=== PATIENT | female | born 2000 | race Caucasian/White ===

== ENCOUNTER 2022-11-17 22:44 | Emergency (ER) | payer MEDICAID, SELFPAY ==
[2022-11-17 22:48] VITALS: BP 150/94; PULSE 86; RESP 16; TEMP 36.4; O2SAT 97; BMI 20.8
--- NOTE | 2022-11-17 23:12 | ED.ABDPAIN1 ---
HPI - Abdominal Pain General Chief Complaint: Abdominal Pain Stated Complaint: PAIN IN SIDE FROM FRONT TO BACK LEFT Time Seen by Provider: 11/17/22 22:50 Source: patient Mode of arrival: walk-in Limitations: no limitations History of Present Illness HPI narrative: This 22-year-old female who is status post appendectomy presents for evaluation of left lower quadrant abdominal pain that is not radiating into her back. She states the pain started last night and was a 3 or 4. She took some laxatives and had a bowel movement which was normal. Her normal bowel movement prior to that was the day before. She states she has since had increasing abdominal pain with radiation into her back on the left side with nausea and 2 episodes of vomiting. She states her urine is always kind of dark. She doesn't have a history of kidney stones. She has not had a fever. She denies any chest pain or shortness of breath. She has no lower extremity pain or swelling. MD elicited complaint: Reports abdominal pain and flank pain Related Data Home Medications Medication Instructions Recorded Confirmed No Known Home Medications 11/17/22 11/17/22 Allergies Allergy/AdvReac Type Severity Reaction Status Date / Time No Known Drug Allergies Allergy Verified 11/17/22 22:52 Review of Systems ROS Status of ROS 10 or more systems reviewed and unremarkable except as noted in history and below Exam Narrative Exam Narrative: Nurses note and vital signs reviewed and patient is not hypoxic. Blood pressure is mildly elevated at 150/94 General: The patient appears well and in no apparent distress. Patient is resting comfortably on cart. no active vomiting Skin: Warm, dry, no pallor noted. There is no rash noted. Head: Normocephalic, atraumatic Eye: Normal conjunctiva, no drainage, EOMI. PERRL Ears, Nose, Mouth, and Throat: oral mucosa is moist. Nares patent. Mouth without vesicles. Cardiovascular: Regular Rate and Rhythm Respiratory: Patient is in no distress, no accessory muscle use, lungs are clear to auscultation, no wheezing, rales or rhonchi Back: mild left lower lumbar tenderness and tenderness in left mid flank and minimal tenderness in LLQ GI: Normal bowel sounds,mild tenderness along the distribution of the left ureter, minimal LLQ tenderness without rebound, guarding or rigidity Musculoskeletal: The patient has no evidence of calf tenderness, no pitting edema, symmetrical pulses noted bilaterally Neurological: A&O x4, normal speech Psychiatric: Cooperative Constitutional Vital Signs, click to edit/add: Last Vital Signs Temp 97.6 F 11/17/22 22:48 Pulse 86 11/17/22 22:48 Resp 16 11/17/22 22:48 BP 150/94 H 11/17/22 22:48 Pulse Ox 97 11/17/22 22:48 O2 Del Method Room Air 11/17/22 22:48 Course Vital Signs Vital signs: Vital Signs Temperature 97.6 F 11/17/22 22:48 Pulse Rate 86 11/17/22 22:48 Respiratory Rate 16 11/17/22 22:48 Blood Pressure 150/94 H 11/17/22 22:48 Pulse Oximetry 97 11/17/22 22:48 Oxygen Delivery Method Room Air 11/17/22 22:48 Temperature 97.6 F 11/17/22 22:48 Pulse Rate 86 11/17/22 22:48 Respiratory Rate 16 11/17/22 22:48 Blood Pressure 150/94 H 11/17/22 22:48 Pulse Oximetry 97 11/17/22 22:48 Oxygen Delivery Method Room Air 11/17/22 22:48 MDM - Abdominal Pain MDM Narrative Medical decision making narrative: This otherwise healthy 22-year-old female who is status post appendectomy in the past presents for evaluation of left lower quadrant abdominal pain that started Last night and in the past 24 hours has radiated into her right flank associated with nausea and 2 episodes of vomiting. She denies any urinary symptoms. She denied the possibility of . She has not had a fever. She has never had any kidney stones. She was mildly tender in her left lower quadrant and left flank. An IV was placed and she was medicated with a liter of normal saline, 30 mg of Toradol and 4 mg of Zofran. I reevaluation she was feeling better. Her pain was resolved and her nausea had also resolved. Routine labs are ordered and are reviewed. Her urine is negative for infection or large blood. Urine test was negative. She has a normal white count and hemoglobin. Electrolytes and liver function tests are normal. CT scan of the abdomen and pelvis shows gallstones and is otherwise normal. The results of the CT scan were discussed with her. She is not having any right upper quadrant abdominal pain or tenderness. She will follow-up with her family physician regarding the gallstones. I gave her a prescription for Colace to use as needed for constipation as this may be causing her discomfort. She is otherwise agreeable to discharge at this time and will follow-up with her PCP. Lab Data Labs: Lab Results 11/17/22 Range/Units 23:00 WBC 9.1 (4.0-11.0) 10^3/uL RBC 4.82 (4.20-5.40) 10^6/uL Hgb 14.1 (12.0-16.0) g/dL Hct 43.0 (36.0-48.0) % MCV 89.2 (81.0-99.0) fL MCH 29.3 (26.7-34.0) pg MCHC 32.8 (29.9-35.2) g/dL RDW 12.6 (11.0-15.0) % Plt Count 277 (150-450) 10^3/uL MPV 9.5 (9.5-13.5) fL Neut % (Auto) 71.3 (43.0-75.0) % Lymph % (Auto) 21.9 (20.5-60.0) % [place] % (Auto) 5.2 (1.7-12.0) % Eos % (Auto) 0.8 L (0.9-7.0) % Baso % (Auto) 0.4 (0.2-2.0) % Neut # (Auto) 6.5 (1.4-6.5) 10^3/uL Lymph # (Auto) 2.0 (1.2-3.8) 10^3/uL [place] # (Auto) 0.5 (0.3-0.8) 10^3/uL Eos # (Auto) 0.1 (0.0-0.7) 10^3/uL Baso # (Auto) 0.0 (0.0-0.1) 10^3/uL Abs Immat Gran (auto) 0.04 H (0.00-0.03) 10^3/uL Imm/Tot Granulo (auto) 0.4 (0.0-0.5) % Sodium 139 (136-145) mmol/L Potassium 3.9 (3.5-5.1) mmol/L Chloride 103 (98-107) mmol/L Carbon Dioxide 27.4 (21.0-32.0) mmol/L Anion Gap 12.5 BUN 14.0 (7.0-18.0) mg/dL Creatinine 0.74 (0.55-1.02) mg/dL Est GFR ( Amer) >60 (>=60) Est GFR (Non-Af Amer) >60 (>=60) BUN/Creatinine Ratio 18.9 Glucose 121 H (74-106) mg/dL Lactate 0.7 (0.4-2.0) mmol/L Calcium 9.1 (8.5-10.1) mg/dL Total Bilirubin 0.2 (0.2-1.0) mg/dL AST 10 L (15-37) U/L ALT <6 L (14-59) U/L Alkaline Phosphatase 55 (46-116) U/L Total Protein 7.7 (6.4-8.2) g/dL Albumin 4.4 (3.4-5.0) g/dL Globulin 3.3 g/dL Albumin/Globulin Ratio 1.3 Lipase 94.0 (73.0-393.0) U/L Urine Color Lt. yellow (YELLOW) Urine Clarity Clear (CLEAR) Urine pH 6.5 (5.0-9.0) Ur Specific [place] 1.025 (1.005-1.025) Urine Protein Negative (NEG/TRACE) mg/dL Urine Glucose (UA) Negative (NEGATIVE) mg/dL Urine Ketones Negative (NEGATIVE) mg/dL Urine Occult Blood Negative (NEGATIVE) Urine Nitrite Negative (NEGATIVE) Urine Bilirubin Negative (NEGATIVE) Urine Urobilinogen 0.2 (0.2-1.0) EU/dL Ur Leukocyte Esterase Trace A (NEGATIVE) Urine RBC 0-2 (0-2) #/HPF Urine WBC 0-2 A (NONE SEEN) #/HPF Ur Squamous Epith Cells Few A (NONE/RARE) #/LPF Urine Crystals Seen A (None Seen) #/HPF Amorphous Sediment Moderate Urine Bacteria Trace A (NONE SEEN) #/HPF Urine Casts None seen (NONE SEEN) #/LPF Urine Mucus Trace A (NONE SEEN) Ur Culture Indicated? No Urine HCG, Qual Negative (NEGATIVE) Discharge Plan Discharge Chief Complaint: Abdominal Pain Clinical Impression: Abdominal pain, LLQ, Constipation, Gallstone Patient Disposition: Home, Self-Care Time of Disposition Decision: 01:12 Condition: Good Prescriptions / Home Meds: No Action No Known Home Medications Instructions: Constipation (ED), Gallstones (ED), High Fiber Diet (ED), Acute Abdominal Pain (ED) Stand Alone Forms: Portal Instructions Referrals: JOSÉ MANUEL CHEUNG [Primary Care Provider] - 1 week
[2022-11-17 23:20] LABS: Bilirubin Urine NEGATIVE (NEGATIVE); Blood Urine NEGATIVE (NEGATIVE); Clarity Urine CLEAR (CLEAR); Color Urine LT. YELLOW (YELLOW); Glucose Urine UA NEGATIVE (NEGATIVE); Ketones Urine NEGATIVE (NEGATIVE); Leukocyte Esterase Urine TRACE (NEGATIVE); Nitrite Urine NEGATIVE (NEGATIVE); Protein Urine NEGATIVE (NEG/TRACE); Specific Gravity Urine 1.025 (1.005-1.025); Urobilinogen Urine 0.2 EU/dL (0.2-1.0); pH Urine 6.5 (5.0-9.0)
[2022-11-17 23:21] LABS: HCG Qualitative Urine* NEGATIVE (NEGATIVE)
[2022-11-17 23:22] LABS: Basophils Percent Auto 0.4 % (0.2-2.0); Eosinophils Absolute Auto 0.1 10^3/uL (0.0-0.7); Eosinophils Percent Auto 0.8 % (0.9-7.0); Hemoglobin 14.1 g/dL (12.0-16.0); Immature Granulocytes Abs Auto 0.04 10^3/uL (0.00-0.03); Immature Granulocytes Pct Auto 0.4 % (0.0-0.5); Lymphocytes Percent Auto 21.9 % (20.5-60.0); Mean Corpuscular HGB Conc 32.8 g/dL (29.9-35.2); Mean Corpuscular Hemoglobin 29.3 pg (26.7-34.0); Mean Corpuscular Volume 89.2 fL (81.0-99.0); Mean Platelet Volume 9.5 fL (9.5-13.5); Monocytes Absolute Auto 0.5 10^3/uL (0.3-0.8); Monocytes Percent Auto 5.2 % (1.7-12.0); Neutrophils Absolute Auto 6.5 10^3/uL (1.4-6.5); Neutrophils Percent Auto 71.3 % (43.0-75.0); Platelet Count 277 10^3/uL (150-450); Red Blood Count 4.82 10^6/uL (4.20-5.40); Red Cell Distribution Width 12.6 % (11.0-15.0); White Blood Count 9.1 10^3/uL (4.0-11.0)
[2022-11-17 23:29] LABS: Bacteria Urine TRACE #/HPF (NONE SEEN); Cast Seen? NONE SEEN #/LPF (NONE SEEN); Mucus Urine TRACE (NONE SEEN); RBC Urine 0-2 #/HPF (0-2); Squamous Epithelial Cell Urine FEW #/LPF (NONE/RARE); Urine Culture Indicated NO; WBC Urine 0-2 #/HPF (NONE SEEN)
[2022-11-17 23:30] LABS: Amorphous Sediment Urine MODERATE; Crystals Seen? Seen #/HPF (None Seen)
[2022-11-17 23:37] LABS: Alanine Aminotransferase <6 U/L (14-59); Albumin Globulin Ratio 1.3; Albumin Level 4.4 g/dL (3.4-5.0); Alkaline Phosphatase 55 U/L (46-116); Anion Gap 12.5; Aspartate Amino Transferase 10 U/L (15-37); BUN Creatinine Ratio 18.9; Bilirubin Total 0.2 mg/dL (0.2-1.0); Calcium 9.1 mg/dL (8.5-10.1); Carbon Dioxide 27.4 mmol/L (21.0-32.0); Chloride 103 mmol/L (98-107); Estimated GFR (African America >60 (>=60); Estimated GFR (Non-African Ame >60 (>=60); Globulin 3.3 g/dL; Glucose 121 mg/dL (74-106); Potassium 3.9 mmol/L (3.5-5.1); Sodium 139 mmol/L (136-145); Total Protein 7.7 g/dL (6.4-8.2)
[2022-11-17] MEDS: KETOROLAC TROMETHAMINE 30 MG/ML VIAL IVP (23:37)
[2022-11-17] MEDS: ONDANSETRON PF 4 MG/2 ML VIAL IV (23:37)
[2022-11-17 23:39] LABS: Lactate/Lactic Acid 0.7 mmol/L (0.4-2.0)
--- NOTE | 2022-11-17 23:57 | CT_ITS ---
The [address] [address] Patient Name: BASILIO GAYLE MRN: [id number] date: 2000 Sex: F Assigned Patient Location: ER Current Patient Location: ER Accession/Order Number: [id number] Exam Date: 11/17/2022 23:50 Report Date: 11/18/2022 00:55 At the request of: TRINIDAD MARKER Procedure: CT abdomen pelvis wo con EXAM: CT abdomen pelvis wo con HISTORY: left flank pain . Pain radiating into back with nausea and vomiting. No history of kidney stones. COMPARISON: None. TECHNIQUE: Nonenhanced CT imaging the abdomen and pelvis was performed with sagittal and coronal reconstructions. FINDINGS: CT ABDOMEN: The lung bases are clear. Cardiac size is normal. There is no pericardial effusion. Cholelithiasis is noted without cholecystitis or biliary ductal dilatation. The exam is limited by the lack of IV contrast. Solid organ lesions or acute abnormalities could be missed. With this consideration, the liver, pancreas, spleen, adrenal glands, aorta, IVC, stomach and small bowel are grossly unremarkable. Slightly hyperdense bilateral renal pyramids could reflect dehydration or underlying very mild nephrocalcinosis. No discrete formed stones are identified. The nonenhanced kidneys are otherwise unremarkable. CT PELVIS: Surgical change at the base of the cecum suggests prior appendectomy. The pelvic small bowel loops, colon, urinary bladder and uterus are unremarkable. Normal sized right ovarian follicles are present. The left ovary is unremarkable. No inflammatory fat stranding, free fluid, loculated fluid or free air is seen in the abdomen or pelvis. No acute osseous abnormality or suspicious bony lesion is seen. CT/CT abdomen pelvis wo con IMPRESSION: 1. No acute findings in the abdomen or pelvis. No hydronephrosis or ureterolithiasis or other specific cause of left flank pain is identified. 2. Cholelithiasis. 3. Appendectomy. Electronically authenticated by: ANDRÉS GUTHRIE Date: 11/18/2022 00:55
[2022-11-18] MEDS: 0.9 % SODIUM CHLORIDE 1,000 ML 1000 ML IV (00:13)
== END 2022-11-18 01:29 | disposition home or self-care (01) ==
PROVIDERS: Emergency Provider Emergency Medicine; PCP Family Medicine
DX: R10.32 Left lower quadrant pain (principal); K59.00 Constipation, unspecified; K80.20 Calculus of gallbladder without cholecystitis without obstruction; Z90.49 Acquired absence of other specified parts of digestive tract
CPT/HCPCS: 36415; 74176; 80053; 81001; 83605; 83690; 84703; 85025; 96374; 96375; 99284

== ENCOUNTER 2022-12-24 01:17 | Emergency (ER) | payer MEDICAID, SELFPAY ==
[2022-12-24 01:20] VITALS: BP 150/94; PULSE 78; RESP 16; TEMP 36.9; O2SAT 99; BMI 20.8
--- NOTE | 2022-12-24 01:37 | ED.ABDPAIN1 ---
HPI - Abdominal Pain General Chief Complaint: Abdominal Pain Stated Complaint: LT FLANK PAIN Time Seen by Provider: 12/24/22 01:30 History of Present Illness HPI narrative: 2 days ago the patient developed nausea and then tonight she developed left sided abdominal pain. No relief with naproxen taken about 2 hours ago. She had the same symptoms about a month ago and saw Dr Alberts, who ordered a CT and blood plus urine testing - revealed gallstones and no other acute pathology to account for the patient's left sided abdominal pain. Patient was better after Toradol at that ED visit and within 5 hours of going home, the pain was resolved. No urinary symptoms. She doubted that she was . No fever or chills. No urinary symptoms and no difficulty with BMs. Related Data Home Medications Medication Instructions Recorded Confirmed No Known Home Medications 11/17/22 11/17/22 Previous Rx's Medication Instructions Recorded ciprofloxacin HCl 500 mg tablet 500 mg PO BID #10 tabs 12/24/22 (Cipro) hyoscyamine sulfate 0.125 mg 0.125 mg PO Q6H PRN abdominal pain 12/24/22 sublingual tablet (Levsin/SL) #20 tabs Allergies Allergy/AdvReac Type Severity Reaction Status Date / Time No Known Drug Allergies Allergy Verified 12/24/22 01:23 [facility] Social History Smoking status: Never smoker Exam Narrative Exam Narrative: Nurses notes and vital signs reviewed and patient is not hypoxic. afebrile General: Well-appearing and in no apparent distress. Skin: Warm, dry, no pallor noted. No rash to abdomen or flank. Eye: Pupils are equal, round and EOMI. No scleral icterus. Cardiovascular: Regular Rate and Rhythm without murmur, gallop or rub. Respiratory: No accessory muscle use or respiratory distress. Lungs are clear to auscultation, no wheezing, rales or rhonchi Back: No CVA tenderness Musculoskeletal: normal ROM, no calf or popliteal tenderness, no lower extremity edema/swelling GI: Abdomen is soft, non-distended. Normal bowel sounds. No masses appreciated. LUQ tenderness to palpation. No rebound, guarding, or rigidity noted. Neurological: A&O x4. No cranial nerve dysfunction observed. No truncal ataxia. Moves all extremities. Sensation intact. Psychiatric: Cooperative and interactive. Normal mood and affect. Constitutional Vital Signs, click to edit/add: Last Vital Signs Temp 98.5 F 12/24/22 01:20 Pulse 78 12/24/22 01:20 Resp 16 12/24/22 01:20 BP 150/94 H 12/24/22 01:20 Pulse Ox 99 12/24/22 01:20 Course Vital Signs Vital signs: Vital Signs Temperature 98.5 F 12/24/22 01:20 Pulse Rate 78 12/24/22 01:20 Respiratory Rate 16 12/24/22 01:20 Blood Pressure 150/94 H 12/24/22 01:20 Pulse Oximetry 99 12/24/22 01:20 Temperature 98.5 F 12/24/22 01:20 Pulse Rate 78 12/24/22 01:20 Respiratory Rate 16 12/24/22 01:20 Blood Pressure 150/94 H 12/24/22 01:20 Pulse Oximetry 99 12/24/22 01:20 MDM - Abdominal Pain MDM Narrative Medical decision making narrative: blood and urine obtained and sent for testing. The patient was ordered to receive oral dissolvable Zofran and oral dissolvable Levsin. Once test was negative, she was ordered to be sent for x-rays of the abdomen. Preg negative. UA revealed acuter UTI and the patient was given Cipro in the ED and prescribed Cipro to take at home. XRays of the abdomen showed right sided stool and left sided gas without obstruction. Lab Data Labs: Lab Results 12/24/22 12/24/22 Range/Units 01:30 01:55 WBC 7.4 (4.0-11.0) 10^3/uL RBC 4.43 (4.20-5.40) 10^6/uL Hgb 13.1 (12.0-16.0) g/dL Hct 40.2 (36.0-48.0) % MCV 90.7 (81.0-99.0) fL MCH 29.6 (26.7-34.0) pg MCHC 32.6 (29.9-35.2) g/dL RDW 13.2 (11.0-15.0) % Plt Count 221 (150-450) 10^3/uL MPV 9.7 (9.5-13.5) fL Neut % (Auto) 54.0 (43.0-75.0) % Lymph % (Auto) 37.8 (20.5-60.0) % [place] % (Auto) 6.6 (1.7-12.0) % Eos % (Auto) 0.8 L (0.9-7.0) % Baso % (Auto) 0.5 (0.2-2.0) % Neut # (Auto) 4.0 (1.4-6.5) 10^3/uL Lymph # (Auto) 2.8 (1.2-3.8) 10^3/uL [place] # (Auto) 0.5 (0.3-0.8) 10^3/uL Eos # (Auto) 0.1 (0.0-0.7) 10^3/uL Baso # (Auto) 0.0 (0.0-0.1) 10^3/uL Abs Immat Gran (auto) 0.02 (0.00-0.03) 10^3/uL Imm/Tot Granulo (auto) 0.3 (0.0-0.5) % Sodium 141 (136-145) mmol/L Potassium 3.8 (3.5-5.1) mmol/L Chloride 106 (98-107) mmol/L Carbon Dioxide 29.4 (21.0-32.0) mmol/L Anion Gap 9.4 BUN 19.0 H (7.0-18.0) mg/dL Creatinine 0.82 (0.55-1.02) mg/dL Est GFR ( Amer) >60 (>=60) Est GFR (Non-Af Amer) >60 (>=60) BUN/Creatinine Ratio 23.2 Glucose 92 (74-106) mg/dL Calcium 8.9 (8.5-10.1) mg/dL Total Bilirubin 0.2 (0.2-1.0) mg/dL AST 8 L (15-37) U/L ALT 17 (14-59) U/L Alkaline Phosphatase 52 (46-116) U/L Total Protein 6.8 (6.4-8.2) g/dL Albumin 4.2 (3.4-5.0) g/dL Globulin 2.6 g/dL Albumin/Globulin Ratio 1.6 Urine Color Lt. yellow (YELLOW) Urine Clarity Sl cloudy (CLEAR) Urine pH 7.0 (5.0-9.0) Ur Specific [place] 1.020 (1.005-1.025) Urine Protein Negative (NEG/TRACE) mg/dL Urine Glucose (UA) Negative (NEGATIVE) mg/dL Urine Ketones Negative (NEGATIVE) mg/dL Urine Occult Blood Negative (NEGATIVE) Urine Nitrite Negative (NEGATIVE) Urine Bilirubin Negative (NEGATIVE) Urine Urobilinogen 0.2 (0.2-1.0) EU/dL Ur Leukocyte Esterase Small A (NEGATIVE) Urine RBC 0-2 (0-2) #/HPF Urine WBC 5-10 A (NONE SEEN) #/HPF Ur Squamous Epith Cells Few A (NONE/RARE) #/LPF Urine Crystals None seen (None Seen) #/HPF Urine Bacteria Small A (NONE SEEN) #/HPF Urine Casts None seen (NONE SEEN) #/LPF Urine Mucus None seen (NONE SEEN) Ur Culture Indicated? Yes Discharge Plan Discharge Chief Complaint: Abdominal Pain Clinical Impression: UTI (urinary tract infection), Abdominal pain Patient Disposition: Home, Self-Care Time of Disposition Decision: 02:26 Prescriptions / Home Meds: New ciprofloxacin HCl [Cipro] 500 mg tablet 500 mg PO BID Qty: 10 0RF hyoscyamine sulfate [Levsin/SL] 0.125 mg tablet, sublingual 0.125 mg PO Q6H PRN (Reason: abdominal pain) Qty: 20 0RF No Action No Known Home Medications Instructions: Urinary Tract Infection in Women (ED), Abdominal Pain (ED) Stand Alone Forms: Portal Instructions Referrals: JOSÉ MANUEL CHEUNG [Primary Care Provider] - 1 week
--- NOTE | 2022-12-24 01:40 | XR_ITS ---
The [address] [address] Patient Name: BASILIO GAYLE MRN: [id number] date: 2000 Sex: F Assigned Patient Location: ER Current Patient Location: Accession/Order Number: [id number] Exam Date: 12/24/2022 01:48 Report Date: 12/24/2022 02:54 At the request of: AMANDA MCCALL Procedure: XR acute abdomen series EXAM: XR acute abdomen series HISTORY: left upper abd pain COMPARISON: None. TECHNIQUE: 2 views FINDINGS: Chest: The cardiomediastinal silhouette is within normal limits. The lung oliver show no evidence for consolidation, infiltrate, pneumothorax or pleural effusions. The diaphragmatic and osseous structures are intact without evidence for an acute osseous abnormality. Abdomen: Moderate stool burden noted within the cecum. No evidence for bowel obstruction. No evidence for free intraperitoneal air. No radiopaque stones visualized. XR/XR acute abdomen series IMPRESSION: No acute cardiopulmonary process. No acute process visualized within the abdomen. Electronically authenticated by: SHOBHA SAEED Date: 12/24/2022 02:54
[2022-12-24 01:42] LABS: Bilirubin Urine NEGATIVE (NEGATIVE); Blood Urine NEGATIVE (NEGATIVE); Clarity Urine SL CLOUDY (CLEAR); Color Urine LT. YELLOW (YELLOW); Glucose Urine UA NEGATIVE (NEGATIVE); Ketones Urine NEGATIVE (NEGATIVE); Leukocyte Esterase Urine SMALL (NEGATIVE); Nitrite Urine NEGATIVE (NEGATIVE); Protein Urine NEGATIVE (NEG/TRACE); Urine Microscopic Indicated YES; Urobilinogen Urine 0.2 EU/dL (0.2-1.0)
[2022-12-24 01:49] LABS: Bacteria Urine SMALL #/HPF (NONE SEEN); Cast Seen? NONE SEEN #/LPF (NONE SEEN); Crystals Seen? None Seen #/HPF (None Seen); Mucus Urine NONE SEEN (NONE SEEN); RBC Urine 0-2 #/HPF (0-2); Squamous Epithelial Cell Urine FEW #/LPF (NONE/RARE); Urine Culture Indicated YES
[2022-12-24] MEDS: ONDANSETRON 4 MG RAPDIS TABLET PO (01:53)
[2022-12-24] MEDS: HYOSCYAMINE SULFATE 0.125 MG TAB.SUBL SL (01:53)
[2022-12-24 02:10] LABS: Basophils Percent Auto 0.5 % (0.2-2.0); Eosinophils Absolute Auto 0.1 10^3/uL (0.0-0.7); Eosinophils Percent Auto 0.8 % (0.9-7.0); Hematocrit 40.2 % (36.0-48.0); Hemoglobin 13.1 g/dL (12.0-16.0); Immature Granulocytes Abs Auto 0.02 10^3/uL (0.00-0.03); Immature Granulocytes Pct Auto 0.3 % (0.0-0.5); Lymphocytes Absolute Auto 2.8 10^3/uL (1.2-3.8); Lymphocytes Percent Auto 37.8 % (20.5-60.0); Mean Corpuscular HGB Conc 32.6 g/dL (29.9-35.2); Mean Corpuscular Hemoglobin 29.6 pg (26.7-34.0); Mean Corpuscular Volume 90.7 fL (81.0-99.0); Mean Platelet Volume 9.7 fL (9.5-13.5); Monocytes Absolute Auto 0.5 10^3/uL (0.3-0.8); Monocytes Percent Auto 6.6 % (1.7-12.0); Platelet Count 221 10^3/uL (150-450); Red Blood Count 4.43 10^6/uL (4.20-5.40); Red Cell Distribution Width 13.2 % (11.0-15.0); White Blood Count 7.4 10^3/uL (4.0-11.0)
[2022-12-24 02:17] LABS: Alanine Aminotransferase 17 U/L (14-59); Albumin Globulin Ratio 1.6; Albumin Level 4.2 g/dL (3.4-5.0); Alkaline Phosphatase 52 U/L (46-116); Anion Gap 9.4; Aspartate Amino Transferase 8 U/L (15-37); BUN Creatinine Ratio 23.2; Bilirubin Total 0.2 mg/dL (0.2-1.0); Calcium 8.9 mg/dL (8.5-10.1); Carbon Dioxide 29.4 mmol/L (21.0-32.0); Chloride 106 mmol/L (98-107); Estimated GFR (African America >60 (>=60); Estimated GFR (Non-African Ame >60 (>=60); Globulin 2.6 g/dL; Glucose 92 mg/dL (74-106); Potassium 3.8 mmol/L (3.5-5.1); Sodium 141 mmol/L (136-145); Total Protein 6.8 g/dL (6.4-8.2)
[2022-12-24] MEDS: CIPROFLOXACIN HCL 500 MG TABLET PO (02:29)
== END 2022-12-24 02:32 | disposition home or self-care (01) ==
PROVIDERS: Emergency Provider Emergency Medicine; PCP Family Medicine
DX: R10.9 Unspecified abdominal pain (principal); N39.0 Urinary tract infection, site not specified
CPT/HCPCS: 36415; 74022; 80053; 81001; 85025; 87086; 99284

== ENCOUNTER 2023-03-26 09:24 | Outpatient (OUT) | payer MEDICAID, SELFPAY ==
[2023-03-26 10:26] LABS: HCG Quantitative 313 mIU/mL
== END 2023-03-26 09:25 | disposition home or self-care (01) ==
LOC: LAB 09:26
PROVIDERS: PCP Family Medicine; Visit Provider Specialist
DX: N91.2 Amenorrhea, unspecified (principal)
CPT/HCPCS: 36415; 84702

== ENCOUNTER 2023-03-28 10:18 | Emergency (ER) | payer MEDICAID, SELFPAY ==
[2023-03-28 10:22] VITALS: BP 127/68; PULSE 80; RESP 16; TEMP 36.8; O2SAT 99; BMI 20.4
--- NOTE | 2023-03-28 11:27 | US_ITS ---
The [address] [address] Patient Name: BASILIO GAYLE MRN: [id number] date: 2000 Sex: F Assigned Patient Location: ER Current Patient Location: ER Accession/Order Number: [id number] Exam Date: 03/28/2023 11:55 Report Date: 03/28/2023 12:43 At the request of: TERESA HUBBARD Procedure: US OB transvaginal PROCEDURE: US OB transvaginal, 03/28/2023 11:55 AM EST CLINICAL INDICATIONS: Encounter for first trimester , vaginal bleeding for one day 3 para 2 LMP 02/10/2023 Expected gestational age by LMP: 6 weeks 4 days Expected CLAUDY by LMP: 11/17/2023 COMPARISON: None TECHNIQUE: Transvaginal first trimester obstetric sonogram, grayscale, color evaluation FINDINGS: Uterus: Endometrial echo complex 1.3 cm. No convincing intrauterine identified. A focal uterine abnormality is not seen. Maternal right ovary: 2.7 x 1.8 x 1.5 cm, volume 4 mL. Subcentimeter follicles noted. Normal sonographic morphology. Maternal left ovary: 3.7 x 1.4 x 1.8 cm, volume 5 mL. Subcentimeter follicles noted. Normal sonographic morphology. Transvaginal cervical length, 4.1 cm, closed No maternal pelvic free fluid seen. US/US OB transvaginal IMPRESSION: 1. uncertain location. No convincing sign of intrauterine or extrauterine is seen. Differential considerations include too early to confirm by sonography, complete spontaneous , ectopic . Correlation with serial quantitative beta-hCG and follow-up sonography needed. 2. Normal bilateral maternal ovarian sonographic morphology Electronically authenticated by: TRINH SALMON Date: 03/28/2023 12:43
[2023-03-28 13:20] LABS: Basophils Percent Auto 0.3 % (0.2-2.0); Eosinophils Percent Auto 0.1 % (0.9-7.0); Hematocrit 40.6 % (36.0-48.0); Immature Granulocytes Abs Auto 0.02 10^3/uL (0.00-0.03); Immature Granulocytes Pct Auto 0.3 % (0.0-0.5); Lymphocytes Absolute Auto 1.8 10^3/uL (1.2-3.8); Lymphocytes Percent Auto 22.9 % (20.5-60.0); Mean Corpuscular Hemoglobin 29.1 pg (26.7-34.0); Mean Corpuscular Volume 90.8 fL (81.0-99.0); Mean Platelet Volume 9.6 fL (9.5-13.5); Monocytes Absolute Auto 0.5 10^3/uL (0.3-0.8); Monocytes Percent Auto 5.9 % (1.7-12.0); Neutrophils Absolute Auto 5.5 10^3/uL (1.4-6.5); Neutrophils Percent Auto 70.5 % (43.0-75.0); Platelet Count 238 10^3/uL (150-450); Red Blood Count 4.47 10^6/uL (4.20-5.40); Red Cell Distribution Width 13.7 % (11.0-15.0); White Blood Count 7.8 10^3/uL (4.0-11.0)
[2023-03-28 13:34] LABS: HCG Quantitative 99 mIU/mL
[2023-03-28 13:52] VITALS: BP 114/68; PULSE 70; RESP 16; O2SAT 100
--- NOTE | 2023-03-28 13:57 | ED_ITS ---
HPI - Female Genitourinary General Chief complaint: OB/Uterine Contractions Stated complaint: 6 WEEKS / VAGINAL BLEEDING Time Seen by Provider: 03/28/23 12:43 Source: patient Mode of arrival: walk-in History of Present Illness HPI Narrative: this patient's here for evaluation of vaginal bleeding. She is under the care of INVENTORY CONTROL SPECIALIST in [place] a while. She had outpatient lab. That showed an hCG of over three hundred two days ago. She is having a low but is spotting but no heavy passage of clots or hemorrhaging. She does not have any fever shakes or chills. She did not have any voiding complaints. She did tell the nurse that she was hungry and wanted something to eat. She does know the exact dates of her EDC but she felt that she was early on in her . She had not had a ultrasound done previously. Related Data Home Medications Medication Instructions Recorded Confirmed vits no.130-ferrous fum 1 tab PO DAILY 03/28/23 03/28/23 27 mg iron-folic acid 800 mcg tablet ( Vitamin) Allergies Allergy/AdvReac Type Severity Reaction Status Date / Time No Known Drug Allergies Allergy Verified 12/24/22 01:23 [facility] Social History Smoking status: Never smoker Exam Narrative Exam Narrative: on arrival here the emergency room was extremely busy. The nurse took it upon herself to order a transvaginal ultrasound. I saw the patient after the ultrasound was done The patient is awake alert pleasant. No distress here with her male special forces senior sergeant her vital signs are stable she's not anxious apprehensive or tearful. I explained her the results of the ultrasound that showed no evidence of intra- or extrauterine . Her hCG has diminished substantially from two days ago down to eighty-eight. It appears that she's had a complete miscarriage. She is encouraged to follow up with her INVENTORY CONTROL SPECIALIST for ongoing care and instructions before trying to become again Constitutional Vital Signs, click to edit/add: Last Vital Signs Temp 98.2 F 03/28/23 10:22 Pulse 70 03/28/23 13:52 Resp 16 03/28/23 13:52 BP 114/68 03/28/23 13:52 Pulse Ox 100 03/28/23 13:52 O2 Del Method Room Air 03/28/23 10:35 Course Vital Signs Vital signs: Vital Signs Temperature 98.2 F 03/28/23 10:22 Pulse Rate 80 03/28/23 10:22 Respiratory Rate 16 03/28/23 10:22 Blood Pressure 127/68 03/28/23 10:22 Pulse Oximetry 99 03/28/23 10:22 Oxygen Delivery Method Room Air 03/28/23 10:22 Temperature 98.2 F 03/28/23 10:22 Pulse Rate 70 03/28/23 13:52 Respiratory Rate 16 03/28/23 13:52 Blood Pressure 114/68 03/28/23 13:52 Pulse Oximetry 100 03/28/23 13:52 Oxygen Delivery Method Room Air 03/28/23 10:35 MDM - Female Genitourinary Lab Data Labs: Lab Results 03/28/23 Range/Units 13:08 WBC 7.8 (4.0-11.0) 10^3/uL RBC 4.47 (4.20-5.40) 10^6/uL Hgb 13.0 (12.0-16.0) g/dL Hct 40.6 (36.0-48.0) % MCV 90.8 (81.0-99.0) fL MCH 29.1 (26.7-34.0) pg MCHC 32.0 (29.9-35.2) g/dL RDW 13.7 (11.0-15.0) % Plt Count 238 (150-450) 10^3/uL MPV 9.6 (9.5-13.5) fL Neut % (Auto) 70.5 (43.0-75.0) % Lymph % (Auto) 22.9 (20.5-60.0) % [place] % (Auto) 5.9 (1.7-12.0) % Eos % (Auto) 0.1 L (0.9-7.0) % Baso % (Auto) 0.3 (0.2-2.0) % Neut # (Auto) 5.5 (1.4-6.5) 10^3/uL Lymph # (Auto) 1.8 (1.2-3.8) 10^3/uL [place] # (Auto) 0.5 (0.3-0.8) 10^3/uL Eos # (Auto) 0.0 (0.0-0.7) 10^3/uL Baso # (Auto) 0.0 (0.0-0.1) 10^3/uL Abs Immat Gran (auto) 0.02 (0.00-0.03) 10^3/uL Imm/Tot Granulo (auto) 0.3 (0.0-0.5) % HCG, Quant 99 mIU/mL Discharge Plan Discharge Chief Complaint: OB/Uterine Contractions Clinical Impression: Complete miscarriage Patient Disposition: Home, Self-Care Time of Disposition Decision: 13:59 Prescriptions / Home Meds: No Action Vitamin 27 mg iron- 800 mcg tablet 1 tab PO DAILY Additional Instructions: ffollow-up with your INVENTORY CONTROL SPECIALIST for ongoing care and instructions as needed Stand Alone Forms: Portal Instructions Referrals: JOSÉ MANUEL CHEUNG [Primary Care Provider] - 1 week
== END 2023-03-28 14:15 | disposition home or self-care (01) ==
PROVIDERS: Emergency Provider Emergency Medicine Emergency Medical Services; PCP Family Medicine
DX: O03.9 Complete or unspecified spontaneous abortion without complication (principal)
CPT/HCPCS: 36415; 76817; 84702; 85025; 99284

== ENCOUNTER 2023-05-30 10:23 | Emergency (ER) | payer MEDICAID, SELFPAY ==
[2023-05-30 10:28] VITALS: BP 127/70; PULSE 83; RESP 16; TEMP 36.7; O2SAT 99; BMI 21.1
--- OUTSIDE RECORDS SUMMARY | 2023-05-30 10:46 | XMS_ITS | CCD ---
Author Name Unknown Address [address] [facility] [address] [place] [id number] Organization [facility] Care Team Providers Care Sequencing Machine Operator Name Role Phone Sameer Ortiz Primary Care Provider [phone] Sarah Fierro Attending Provider DALY, DR SAMEER Juarez Consulting Unavailable ORTIZ, DR SAMEER Juarez Attending Unavailable ORTIZ, DR SAMEER Juarez Admitting Unavailable ORTIZ, DR SAMEER Juarez Primary Care Unavailable MISC, DR PORTILLO Consulting Unavailable MISC, DR PORTILLO Attending Unavailable MISC, DR PORTILLO Admitting Unavailable ORTIZ, DR SAMEER Juarez Primary Care Unavailable ORTIZ, DR SAMEER Juarez Consulting Unavailable ORTIZ, DR SAMEER Juarez Attending Unavailable ORTIZ, DR SAMEER Juarez Admitting Unavailable ORTIZ, DR SAMEER Juarez Primary Care Unavailable [place], DR OPAL Hinton Consulting Unavailable ORTIZ, DR SAMEER Juarez Primary Care Unavailable ALE CHAMPION Attending Unavailable ALE CHAMPION Admitting Unavailable ALE CHAMPION Consulting Unavailable DALY, DR SAMEER Juarez Primary Care Unavailable GEREMIAS OBANDO Attending Unavailable GEREMIAS OBANDO Admitting Unavailable DEVORA WHEAT Consulting Unavailable ORTIZ, DR SAMEER Juarez Consulting Unavailable ORTIZ, DR SAMEER Juarez Attending Unavailable ORTIZ, DR SAMEER Juarez Admitting Unavailable ORTIZ, DR SAMEER Juarez Primary Care Unavailable Jaye Dudley Unavailable MD Manan Matthews Attending Provider NO FAMILY, PHYSICIAN Primary Care Provider Unava ilable MD Sameer Ortiz Primary Care Provider DO Ivonne Ricahrdson Admit Provider DO Ivonne Richardson Attending Provider MD Alexandru [facility] Attending Provider Sameer Ortiz Primary Care Unavailable Ivonne Richardson Admitting Unavailable Ivonne Richardson Attending Unavailable Sameer Ortiz Primary Care Unavailable Cassie, Penkayleigh Kelly Attending Unavailable Cassie, Penola P Admitting Unavailable Sameer Ortiz Primary Care Unavailable Matthews, Penola P Admitting Unavailable Matthews, Penola P Attending Unavailable NO FAMILY, PHYSICIAN Primary Care Unavailable Matthews, Penola P Attending Unavailable Matthews, Penola P Admitting Unavailable NO FAMILY, PHYSICIAN Primary Care Unavailable Matthews, Penola P Attending Unavailable Matthews, Penola P Admitting Unavailable Sameer Ortiz Primary Care Unavailable Alexandru, Nikki Admitting Unavailable Alexandru, Nikki Attending Unavailable Sameer Ortiz Primary Care Unavailable Matthews, Penola P Admitting Unavailable Matthews, Penola P Attending Unavailable Rosa Victoria Unavailable Ron Chaudhari Attending Unavailable Ron Chaudhari Attending Unavailable Ron Chaudhari Attending Unavailable Ron Chaudhari Attending Unavailable Ron Chaudhari Attending Unavailable Ron Chaudhari Attending Unavailable SAMEER ORTIZ Primary Care Unavailable PROVIDER, GAME ROOM ATTENDANT TRANSCRIBE Referring Unav ailable MATTHEWS, PENOLA P Attending Unavailable CASSIE, PENOLA P Attending Unavailable CASSIE, PENOLA P Attending Unavailable CASSIE, PENOLA P Referring Unavailable CASSIE, MANAN P Attending Unavailable Ron Chaudhari MD Primary Care Provider Allergies Allergy Classification Reported Allergen(s) Allergy Type Date of Onset Reaction(s) Facility (1 source) No Known Medication Allergies; Translations: [No Known Medication Allergies] Propensity to adverse reactions (disorder) [facility] Repository Medications Current Medications Medication Drug Class(es) Dates Sig (Normalized) Sig (Original) amoxicillin 500 mg oral capsule (2 sources) Penicillin-class Antibacterial Start: 09-20-2022 take 1 capsule by mouth every eight hours Amoxicillin 500 MG 1 capsule Orally three times a day for 10 day(s) Sep, Active Start: 03-06-2021 take 1 capsule by mo [facility] every eight hours Amoxicillin 500 MG 1 capsule Orally tid for 10 day(s) Feb, Active escitalopram 10 mg oral tablet (1 source) Serotonin Reuptake Inhibitor take 1 tablet by mouth every twenty-four hours Lexapro 10 MG 1 tablet Orally Once a day Active ibuprofen 600 mg oral tablet (7 sources) Nonsteroidal Anti-inflammatory Drug Start: 02-10-20 Ibuprofen Active 600 MG PO Every 6 hours February 09, 2022 12:00am do not exceed 4 doses in a 24 hour period Start: 09-24-2017 End: 01-28-2022 take 600 mg by mouth every six hours Ibuprofen Discontinued 600 MG PO Every 6 hours 60 September 24, 2017 12:00am January 28, 2022 10:51am multivitamin () 27-0.8 MG tablet (1 source) Start: 05-17-2023 End: 05-16-2024 take 1 tablet by mouth in the morning multivitamin () 27-0.8 MG tablet Indications: care, subsequent in first trimester Take 1 tablet by mouth in the morning. 30 tablet 11 05/17/2023 05/16/2024 Active ondansetron 4 mg oral tablet (3 sources) Serotonin-3 Receptor Antagonist Start: 05-17-2023 End: 07-01-2023 take 1 tablet by mouth every eight hours for nausea ondansetron (Zofran) 4 MG tablet Indications: care, subsequent in first trimester , Nausea and vomiting during Take 1 tablet (4 mg) by mouth every 8 (eight) hours if needed for nausea or vomiting 30 tablet 2 05/17/2023 07/01/2023 Active Start: 01-28-2022 End: 02-09-2022 take 1 tablet by mouth every six hours Ondansetron Hcl (Zofran) 4 mg Tablet Discontinued 4 MG PO Q6H January 28, 2022 12:00am February 09, 2022 10:59am predniSONE 20 mg oral tablet (1 source) Start: 09-20-2022 take 1 tablet by mouth every twelve hours predniSONE 20 MG 1 tablet Orally bid for 5 day(s) Sep, Active Omedctrg-Iof-If-Fa (2 sources) Start: 01-28-2022 take 1 tablet by mouth once daily Nfncmnws-Gdz-Nb-Fa Active 1 TAB PO Daily January 28, 2022 12:00am Completed/Discontinued Medications Medication Drug Class(es) Dates Sig (Normalized) Sig (Original) acetaminophen 500 mg oral tablet (2 sources) take 2 tablets by mouth every six hours as needed Acetaminophen 500 MG 2 tablet as needed Orally every 6 hrs Not-Taking dextromethorphan hydrobromide 30 mg / pyrilamine maleate 30 mg oral tablet (1 source) Uncompetitive W-xbndoi-C-[place]part[place] te Receptor Antagonist, Sigma-1 Agonist Start: 12-03-2020 take 1 tablet by mouth every eight hours [place]acono DMT 30-30 MG 1 tablet Orally every 8 hours for 7 days Nov, Not-Taking docusate sodium 100 mg oral capsule (5 sources) Start: 09-24-2017 End: 01-28-2022 take 100 mg by mouth once daily at bedtime Docusate Sodium Discontinued 100 MG PO Daily at bedtime September 24, 2017 12:00am January 28, 2022 10:51am ferrous sulfate 134 mg oral tablet (2 sources) Start: 01-28-2022 End: 02-09-2022 take 27 mg by mouth once daily Ferrous Sulfate Discontinued 27 MG PO Daily January 28, 2022 12:00am February 09, 2022 10:59am Freddie (1 source) Freddie [place] [facility] Problems Active Problems Problem Classification Problem Date Documented Date Episodic/Chronic Abdominal pain (1 source) Pelvic and perineal pain; Translations: [Pelvic and perineal pain] Onset: 12-23-2021 Episodic Bacterial infection; unspecified site (1 source) Other specified bacterial agents as the cause of diseases classified elsewhere Episodic Ectopic (1 source) Other ectopic without intrauterine ; Translations: [, ectopic, cornual or cervical] Onset: 05-18-2023 Episodic Nausea and vomiting (4 sources) Nausea with vomiting, unspecified; Translations: [NAUSEA WITH VOMITING UNSPECIFIED] Onset: 09-03-2021 Episodic Other complications of (1 source) Other specified related conditions, second trimester; Translations: [OTH SPEC PREG RELATED COND 2ND TRI] Onset: 09-07-2021 Episodic Other complications of (1 source) Mild hyperemesis gravidarum; Translations: [MILD HYPEREMESIS GRAVIDARUM] Onset: 07-27-2021 Episodic Other complications of (1 source) with inconclusive viability, not applicable or unspecified; Translations: [Encounter to determine viability of , single or unspecified fetus] Onset: 05-18-2023 Episodic Other female genital disorders (7 sources) History of past delivery; Translations: [Status post vaginal delivery] 06-09-2018 Episodic Other upper respiratory infections (6 sources) Acute pharyngitis, unspecified; Translations: [Streptococcal pharyngitis] Onset: 03-06-2021 Resolved: 03-06-2021 Episodic Residual codes; unclassified (1 source) 17 weeks gestation of ; Translations: [17 WEEKS GESTATION OF ] Onset: 09-07-2021 Episodic Residual codes; unclassified (1 source) 10 weeks gestation of ; Translations: [10 WEEKS GESTATION OF ] Onset: 07-27-2021 Episodic Residual codes; unclassified (1 source) 35 weeks gestation of ; Translations: [35 weeks gestation of ] Onset: 01-14-2022 Episodic Residual codes; unclassified (1 source) 32 weeks gestation of ; Translations: [32 weeks gestation of ] Onset: 12-23-2021 Episodic Unclassified (3 sources) CONTACT W/AND (SUSP) EXPOS COVID-19; Translations: [CONTACT W/AND (SUSP) EXPOS COVID-19] Onset: 04-09-2021 Unclassified (1 source) Encounter for care and examination of lactating mother; Translations: [Encounter for care and examination of lactating mother] Onset: 02-12-2022 Unclassified (1 source) Encounter for supervision of other normal , third trimester; Translations: [Encounter for supervision of other normal , third trimester] Onset: 02-08-2022 Unclassified (1 source) False labor at or after 37 completed weeks of gestation; Translations: [False labor at or after 37 completed weeks of gestation] Onset: 01-28-2022 Unclassified (1 source) Encounter for screening for Streptococcus B; Translations: [Encounter for screening for Streptococcus B] Onset: 01-14-2022 Unclassified (1 source) Low back pain, unspecified; Translations: [Low back pain, unspecified] Onset: 12-23-2021 Unclassified (1 source) O21.1 - Hyperemesis gravidarum with metabolic disturbance; Translations: [O21.1 - Hyperemesis gravidarum with metabolic disturbance] Onset: 08-21-2021 Unclassified (1 source) N89.8 - Other specified noninflammatory disorders of vagina; Translations: [N89.8 - Other specified noninflammatory disorders of vagina] Onset: 07-21-2021 Past or Other Problems Problem Classification Problem Date Documented Da te Episodic/Chronic Fluid and electrolyte disorders (1 source) Dehydration; Translations: [E86.0 - Dehydration] Onset: 08-21-2021 Episodic Immunizations and screening for infectious disease (1 source) Contact with and (suspected) exposure to other viral communicable diseases Onset: 03-06-2021 Resolved: 03-06-2021 Episodic Other non-traumatic joint disorders (4 sources) Pain in left wrist; Translations: [PAIN IN LEFT WRIST] Onset: 11-05-2020 Episodic Unclassified (1 source) CONTACT W/AND (SUSP) EXPOS COVID-19; Translations: [CONTACT W/AND (SUSP) EXPOS COVID-19] Onset: 04-06-2021 Results Test Name Value Interpretation Reference Range Facility QHERIT(TM) EXPANDED CARRIER SCREENon 05-28-2023 2+0 RISK VARIANT Not [facility] (Bld/Tiss) SEE NOTE [facility] Comment on above: Fragile X: FEMALE, 29 and 31 CGG repeats in the FMR1 gene detected (NEGATIVE) Genetic variant assessment [facility] Nom (Bld/Tiss) SEE NOTE [facility] Comment on above: DISEASES / VARIANTS TESTED DISEASE (GENE) [REFERENCE SEQUENCE] - VARIANTS ALPHA-THALASSEMIA (HBA1 and HBA2) [NM 229401.3 and NM 973718.4] -alpha3.7, -alpha4.2, -alpha20.5, --SEA, --MED, -CHEVY, --ELIZA, spring (c.427T>C) BETA HEMOGLOBINOPATHIES (INCLUDING SICKLE CELL DISEASE) (HBB) [NM 821853.4] c.*111A>G, c.*110T>C, c.*96T>C, Hb D-[place] (c.364G>C), Hb O-[place] (c.364G>A), c.321 322insG, c.316-2A>C, c.316-2A>G, c.316-3C>A, c.316-106C>G, c.316-146T>G, c.316-197C>T, c.315+1G>A, c.287 288insA, c.251delG, c.230delC, c.216 217insA, c.203 204delTG, c.143 144insA, c.146 147insATCT, c.135delC, c.130G>T, c.126 129delCTTT, c.124 127delTTCT, c.118C>T, c.114G>A, c.112delT, c.93-1G>C, c.93-1G>A, c.93-21G>A, c.92+6T>C, c.92+5G>A, c.92+5G>C, c.92+5G>T, c.92+2T>A, c.92+2T>C, c.92+1G>A, c.92+1G>T, Hb Steel (c.92G>C), c.92G>A, c.84 85insC, c.79G>T, HBE (c.79G>A), c.75T>A, c.59A>G, c.52A>T (LYS17*), c.51delC, c.48G>A, c.47G>A (Trp15), c.46delT, c.36delT, c.27 28insG, c.25 26delAA, c.20delA, HBS (c.20A>T), HBC (c.19G>A), c.17 18delCT, c.2T>C, c.2T>G, c.1A>G, c.-78A>C, c.-78A>G, c.-79A>G, c.-80T>A, c.-81A>G, c.-136C>G, c.-137C>A, c.-137C>G, c.-137C>T, c.-138C>T, c.-138C>A, c.-140C>T, c.-151C>T GRAY SYNDROME (BLM) [NM 010555.3] 6571rhw4/ins7 (c.7 2212delATCTGAinsTAGATTC) JANESSA DISEASE (ASPA) [NM 607381.2] IVS2-2A>G (c.433-2A>G), Y231* (c.693C>A), E285A (c.854A>C), A305E (c.914C>A) CYSTIC FIBROSIS (CFTR) [NM 697269.3] M1V (c.1A>G), CFTRdele2,3, Q39X (c.115C>T), 296+2T>A (c.164+2T>A), E60X (c.178G>T), P67L (c.200C>T), R75X (c.223C>T), G85E (c.254G>A), 394delTT (c.262delTT), G91R (c.271G>A), 405+1G>A (c.273+1G>A), 406-1G>A (c.274-1G>A), E92K (c.274G>A), E92X (c.274G>T), Q98X (c.292C>T), 444delA (c.313delA), 457TAT>G (c.325delTATinsG), D110H (c.328G>C), R117C (c.349C>T), R117H (c.350G>A), Y122X (c.366T>A), 574delA (c.442delA), 621+1G>T (c.489+1G>T), 663delT (c.531delT), G178R (c.532G>A), 711+1G>T (c.579+1G>T), 711+3A>G (c.579+3A>G), 711+5G>A (c.579+5G>A), 712-1G>T (c.580-1G>T), H199Y (c.595C>T), P205S (c.613C>T), L206W (c.617T>G), Q220X (c.658C>T), 429xcn88 (c.389nzz50), 935delA (c.803delA), 936delTA (c.805delAT), X010ueo (c.933delCTT), 1078delT (c.948delT), G330X (c.988G>T), R334W (c.1000C>T), I336K (c.1007T>A), T338I (c.1013C>T), S341P (c.1021T>C), 1154insTC (c.1022insTC), 1161delC (c.1029delC), R347P (c.1040G>C), R347H(c.1040G>A), R352Q (c.1055G>A), 1213delT (c.1081delT), 1248+1G>A (c.1116+1G>A), 1259insA (c.1127insA), 1288insTA (c.1153insAT), W401X (c.1202G>A or c.1203G>A), 1341+1G>A (c.1209+1G>A), 6493xli1 (c.1329insAGAT), A455E (c.1364C>A), 1525-1G>A (c.1393-1G>A), S466X (c.1397C>A or c.1397C>G), L467P (c.1400T>C), 1548delG (c.1418delG), G480C (c.1438G>T), S489X (c.1466C>A), S492F (c.1475C>T), 1609delCA (c.1477delCA), Q493X (c.1477C>T), Y572lyf (c.1519delATC), Q350abq (c.1521delCTT), 1677delTA (c.1545delTA), V520F (c.1558G>T), C524X (c.1572C>A), Q525X (c.1573C>T), 1717-1G>A (c.1585-1G>A), 1717-8G>A (c.1585-8G>A), G542X (c.1624G>T), S549R (c.1645A>C or c.1647T>G), S549N (c.1646G>A), G551D (c.1652G>A), Q552X (c.1654C>T), R553X (c.1657C>T), A559T (c.1675G>A), R560K (c.1679G>A), R560T (c.1679G>C), 1811+1.6kbA>G (c.1679+1.6kbA>G), 1812-1G>A (c.1680-1G>A), P574H (c.1721C>A), D579G (c.1736A>G), E585X (c.1753G>T), 1898+1G>T (c.1766+1G>T), 1898+1G>A (c.1766+1G>A), 1898+3A>G (c.1766+3A>G), 1898+5G>T (c.1766+5G>T), 2043delG (c.1911delG), 2839szj9>A (c.0374zpi4mhuE), 1273mzf06kzi0 (c.6729ojm72aadMBXHX), 2108delA (c.1975delA), 2143delT (c.2011delT), 2183AA>G (c.2051delAAinsG), 2184insA (c.2052insA), 2184delA (c.2052delA), R709X (c.2125C>T), K710X (c.2128A>T), 2307insA (c.2175insA), L732X (c.2195T>G), 2347delG (c.2215delG), R764X (c.2290C>T), 2585delT (c.2453delT), E822X (c.2464G>T), 2622+1G>A (c.2490+1G>A), E831X (c.2491G>T), W846X (c.2537G>A), R851X (c.2551C>T), 2711delT (c.2583delT), 2789+5G>A (c.2657+5G>A), Q890X (c.2668C>T), 2869insG (c.2737insG), L927P (c.2780T>C), S945L (c.2834C>T), 3007delG (c.2875delG), G970R (c.2908G>C), 3120G>A (c.2988G>A), 3120+1G>A (c.2988+1G>A), 3121-1G>A (c.2989-1G>A), 3171delC (c.3039delC), 0288qva6 (c.3067delATAGTG), 3272-26A>G (c.3140-26A>G), R9059E (c.3194T>C), Z6536G (c.3196C>T), H7415L (c.3197G>A), R3821M (c.3230T>C), A0541D (c.3266G>A), Y7838Q (c.3276C>A or c.3276C>G), L7405I (c.3278T>C), L8872P (c.3302T>A), G9960F (c.3310G>T), P1825C (c.3382A>T), F2927C (c.3435G>A), W9930L (c.3472C>T), W5186Q (c.3484C>T), 3659delC (c.3528delC), 6639ljw9 (c.3535delACCA), O9253L (c.3587C>G), S7468S (c.3611G>A or c.3612G>A), 3791delC (c.3659delC), 3821delT (c.3691delT), O3781F (c.3700A>G), U4603H (c.3712C>T), 3849+10kbC>T (c.3717+80418M>T), C7478A (c.3731G>A), 3876delA (c.3744delA), P8623T (c.3752G>A), I1086U (c.3764C>A), 3905insT (c.3773insT), W12 (more content not included)... director cardiovascular review Ricci (Unsp spec) [Interp] SEE NOTE [facility] Comment on above: A portion of the testing was performed at [facility]. Laboratory testing supervised and results monitored by Vicki Ambrocio, Ph.D., [facility], [facility]. METHODOLOGY Fragile X testing is performed using fluorescent polymerase chain reaction (PCR) assays. Using flanking primers, the FMR1 CGG repeat region is co-amplified with the amelogenin gene, which is located on both the X and Y chromosomes to confirm gender information. A triplet-primed PCR reaction is also performed to detect CGG repeat expansions that are too large to be amplified using the flanking primers. Samples that are positive for an FMR1 CGG repeat expansion are further analyzed by a methylation PCR assay to provide information on the size and methylation status of the FMR1 CGG repeat. The SMN1 copy number is detected by quantitative PCR. The g.67246O>G variant ([id number]), assessed by quantitative PCR, is reported when the SMN1 copy is equal to two. SMN2 copy number is assessed by quantitative PCR when SMN1 copy number is equal to zero or one, or when SMN1 is equal to two in the presence of the g.17801M>G variant. All other gene variations are detected by multiplex-PCR amplification of specific gene regions, followed by nucleotide sequence analysis on a massively parallel sequencing platform. Although rare, false positive or false negative results may occur. All results should be interpreted in the context of clinical findings, relevant history, and other laboratory data. Visit [email or web address] for additional clinical information and references. Health care providers, please contact your local [facility] genetic counselor or call [phone] ( ) for assistance with the interpretation of these results. These tests were developed and their analytical performance characteristics have been determined by [facility]. They have not been cleared or approved by the FDA. These assays have been validated pursuant to the CLIA regulations and are used for clinical purposes. Narrative diagnostic report [facility] Ricci (Bld/Tiss) [Interp] SEE NOTE [facility] Comment on above: NEGATIVE FOR ALL VARIANTS TESTED (SEE BELOW) NEGATIVE SUMMARY STATEMENT SEE NOTE [facility] Comment on above: This carrier test in cludes sequencing and targeted analysis of the specific variants listed. In some cases, this individual's risk to have a child affected with the diseases tested is reduced based on a negative result. Sensitivity and utility of testing depends largely upon the individual's ethnic background. While negative results may indicate a reduced carrier risk for some or all diseases tested, this risk cannot be eliminated. Please refer to the Residual Risk Table(s) for selected residual carrier risks after a negative result. Race C [facility] RESIDUAL RISK TABLE SEE NOTE [facility] Comment on above: RESIDUAL CARRIER RIS K TABLE - FOR USE ONLY AFTER RESULTS ARE NEGATIVE (ASSUMES FAMILY HISTORY IS NEGATIVE) Disease Ethnicity Detection Prior Risk Rate % Risk After Negative Result Alpha- Thalassemia Mediterranean, Up to 94 Varies Reduced [facility] Ethnicity Baudilio Yang, Vanesa Pozo Beta-Hemoglobinopathies (Including Sickle Cell Disease) Mediterranean, 99 Varies Reduced [facility] , Ethnicity , Persian, Gray Syndrome Ashkenazi Islam 99 04/30,301 Janessa Disease Ashkenazi Islam >97 <04/18,801 Non-Ashkenazi 50 Not Islam known Cystic Fibrosis Ashkenazi Islam 95 05/11461 Non- 90 05/12 Filipino 88 1 78 1292 Filipino 53 199 Dihydrolipoamide Dehydrogenase Deficiency Ashkenazi Islam >95 1107 <04/19,121 Familial Dysautonomia Ashkenazi Islam >99 05/18 <04/20,001 Familial Hyperinsulinism [facility] 90 Fanconi Anemia [facility] Islam 99 04/26, Fragile X Females 99 05/12, Gaucher Disease Ashkenazi Islam 95 05/02 Glycogen Storage Disease Type Ia Ashkenazi Islam 95 04/18,261 51 1 Dia Syndrome 2 [facility] 99 04/27,601 Maple Syrup Urine Disease Ashkenazi Islam 95 04/18,921 Mucolipidosis Type IV Ashkenazi Islam 95 04/18,761 Nemaline Myopathy [facility] Islam >95 <04/20,341 Sade-Pick Disease Types A&B Ashkenazi Islam 97 1 04/20,801 Jett-Sachs Disease [facility] Islam 98 05/14 04/18,301 BahamianFilipino 70 05/18 General Population 46 1300 1555 Usher Syndrome, Type IF Ashkenndi Islam >75 1147 <585 Usher Syndrome, Type IIIA Ashkenazi Islam >95 120 <04/19,381 Walker-Warburg Syndrome Ashkenazi Islam 99 04/24,801 SMA INTERPRETATION Negative [facility] Comment on above: INTERPRETATION: This analysis identified two (2) copies of the SMN1 gene. The g.56105T>G variant was not detected (NEGATIVE). The revised carrier risk for an individual with two (2) copies of the SMN1 gene and the absence of the g.89576U>G variant is dependent on ethnicity and is provided in the table below (Diana et al., 2012. PMID: 44504994; Jamison et al., 2017. PMID: 23510901). LIMITATIONS OF ANALYSIS: This negative result does not rule out carrier status or a diagnosis of spinal muscular atrophy (SMA). This testing cannot identify all individuals who have two copies of the SMN1 gene on one chromosome and none on the opposite chromosome (silent carriers), nor does it rule out other pathogenic/likely pathogenic variants in the SMN1 gene. The risk for pathogenic/likely pathogenic variants that cause SMA other than the loss of at least exon 7 depends greatly on family history, clinical presentation and ethnicity. SMA RESIDUAL RISK RISK BELOW [facility] Comment on above: Revised carrier risk for individuals with no family history of SMA Carrier Population Detection Carrier Revised Risk/ Ethnicity Rate Risk Variant Absent 95% 1:47 1:921 Ashkenazi 93% 1:67 1:918 Islam 94% 1:59 1:907 90% 1:72 1:375 Filipino 93% 1:68 1:906 SMN1 gene targeted mutation analysis [employer] Doc (Bld/Tiss) 2 COPIES [facility] Performing Organization Information Site ID: [id number] Name: [facility], Address: [facility] [place] [address] Director: Verna Love MD,PhD,LIN[facility] 05-18-2023 [facility] Telephone (OBGYF2) ANABELA TAYLOR ([id number]) 89 F Date Time Provider Department 05/18/23 OB MFM [id number] During your visit today, we recorded the following information about you: Carla Crooks MA 05/18/2023 10:02 AM Signed Called pt, verified name and . Informed pt call was regarding referral sent in from [facility]. Pt had US done 05/17 showing a at 6w2d - possible cornual . (See [facility] notes in scanned docs). Pt offered and accepted appt at [facility] office at 3 pm today (05/18). No further questions. Carla Crooks MA Allergies As of Date: 05/18/2023 (No Known Allergies) Date Reviewed: 10/23/2015 Reviewed by: Becky Weiss - Fully Assessed Reason for Visit: Appointment [[id number]] Problem List As Of Date 05/18/2023 Noted Resolved Chronic midline low back pain without sciatica *10/23/2015 Encounter Status:Closed by CARLA CROOKS on 05/18/23 Normal [facility] ED Note-Physicianon 03-28-20 ED Note-Physician [id number] .00TIFF Normal [facility] RAD - Ultrasound Reporton RAD - Ultrasound Report [id number] .00TIFF Normal [facility] Ambulatory Visit Summaryon Ambulatory Visit Summary ANABELA GAYLE :2000 Visit Date:02/08/2023 Ambulatory Visit Instructions Your Diagnosis Anxiety and depression BMI less than 19,adult Depression, unspecified Your Care Team Attending Physician - Ron Chaudhari MD Primary Care Physician - Ron Chaudhari MD This Is Your Medications List escitalopram (Lexapro 10 mg Tab) Procedures Performed Appendectomy. Discharge Vitals Temperature (Temporal Artery) 37.2 ?C Heart Rate (Peripheral) 72 Respiratory Rate 16 Blood Pressure 96/70 Height 164.1 cm Height 65 in Weight 53.7 kg Weight 118.14 lb BMI 19.94 What to do next Scheduled Follow-Up Appointments 2023 2:15 PM EST With: Ron Chaudhari MD Where: [facility] Medicine Office/Clini c Noteon 02-08-2023 Family Medicine Office/Clinic Note HPI Staff Anabela is a 22 year old female presenting for 3 month follow up mood Follow up for Mental Status: Medication adherence: she kept forgetting to take it so she stopped then she ran out, doing okay without it Medication refill needed: _ Suicidal thoughts-Not at this time Most recent HIWOT: 3 Most recent PHQ9: 2 flu: refused questions/concerns: none Review of Systems PHQ Score Initial Depression Screen Score: 0 Physical Exam Vitals & Measurements T: 37.2 ?C(Temporal Artery) HR: 72(Peripheral) RR: 16 BP: 96/70 SpO2: 99% HT: 65 in HT: 164.1 cm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 Comment on above: Order Comment: Comme nt Draw at 630 am Performed By: #### C BC #### [address] Mean Corpuscular HGB Conc 32.5 g/dL Normal 32.0-35.0 [facility] Comment on above: Order Comment: Comme nt Draw at 630 am Performed By: #### C BC #### [address] Monocytes (Bld) [#/Vol] 1.0 10*3/uL High 0.0-0.8 [facility] Comment on above: Order Comment: Comme nt Draw at 630 am Performed By: #### C BC #### [place] [address] [place] Monocytes/100 WBC (Bld) 7.1 % Normal . [facility] Comment on above: Order Comment: Comme nt Draw at 630 am Performed By: #### C BC #### [facility] [address] Neutrophils (Bld) [#/Vol] 10.3 10*3/uL High 1.8-7.7 [facility] Comment on above: Order Comment: Comme nt Draw at 630 am Performed By: #### C BC #### [address] Neutrophils/100 WBC (Bld) 76.6 % Normal . [facility] Comment on above: Order Comment: Comme nt Draw at 630 am Performed By: #### C BC #### [address] Nucleated RBC/100 WBC (Bld) [Ratio] 0.0 % Normal 0-0.5 [facility] Comment on above: Order Comment: Comme nt Draw at 630 am Performed By: #### C BC #### [facility] [address] [place] [address] Platelet mean volume (Bld) [Entitic vol] 7.9 fL Normal 6.3-10.7 [facility] Comment on above: Order Comment: Comme nt Draw at 630 am Performed By: #### C BC #### [place] [address] [place] Platelets (Bld) [#/Vol] 213 10*3/uL Normal 150-450 [facility] Comment on above: Order Comment: Comme nt Draw at 630 am Performed By: #### C BC #### [facility] [address] [place] [address] [place] RBC (Bld) [#/Vol] 3.91 10*6/uL Normal 3.60-5.00 [facility] Comment on above: Order Comment: Comme nt Draw at 630 am Performed By: #### C BC #### [facility] [address] [place] [address] [place] WBC (Bld) [#/Vol] 13.4 10*3/uL High 4.5-11.0 [facility] Comment on above: Order Comment: Comme nt Draw at 630 am Performed By: #### C BC #### [facility] [address] [place] [address] [facility] Eosinophils Auto (Bld) [#/Vo l]Ordered By: Ivonne Richardson on 02-09-2022 Eosinophils (Bld) [#/Vol] 0.1 10*3/uL 0.0-0.45 [facility] Eosinophils/100 WBC Auto (Bl d)Ordered By: Ivnone Richardson on 02-09-2022 Eosinophils/100 WBC (Bld) 1.0 % . [facility] Erythrocyte distribution wid th Auto (RBC) [Ratio]Ordered By: Ivonne Richardson on 02-09-2022 Erythrocyte distribution width (RBC) [Ratio] 13.8 % 11.9-15.3 [facility] Hematocrit Auto (Bld) [Volum e fraction]Ordered By: Ivonne Richardson on 02-09-2022 Hematocrit (Bld) [Volume fraction] 35.3 % 34.0-46.4 [facility] Hemoglobin [Mass/volume] in BloodOrdered By: Ivonne Richardson on 02-09-2022 Hemoglobin (Bld) [Mass/Vol] 11.5 g/dL 11.8-15.4 [facility] Laboratory - Hematology and Cell countsOrdered By: Ivonne Richardson on 02-09-2022 Nucleated RBC/100 WBC (Bld) [Ratio] 0.0 % 0-0.5 [facility] Leukocytes [#/volume] in Blo od by Automated countOrdered By: Ivonne Richardson on 02-09-2022 WBC (Bld) [#/Vol] 13.4 10*3/uL 4.5-11.0 [facility] Lymphocytes Auto (Bld) [#/Vo l]Ordered By: Ivonne Richardson on 02-09-2022 Lymphocytes (Bld) [#/Vol] 2.0 10*3/uL 1.00-4.8 [facility] Lymphocytes/100 WBC Auto (Bl d)Ordered By: Ivonne Richardson on 02-09-2022 Lymphocytes/100 WBC (Bld) 15.0 % . [facility] MCH Auto (RBC) [Entitic mass ]Ordered By: Ivonne Richardson on 02-09-2022 MCH (RBC) [Entitic mass] 29.3 pg 24.7-34.3 [facility] MCHC Auto (RBC) [Mass/Vol]Or dered By: Ivonne Richardson on 02-09-2022 MCHC (RBC) [Mass/Vol] 32.5 g/dL 32.0-35.0 [facility] MCV Auto (RBC) [Entitic vol] Ordered By: Ivonne Richardson on 02-09-2022 MCV (RBC) [Entitic vol] 90.3 fL 80-100 [facility] Monocytes Auto (Bld) [#/Vol] Ordered By: Ivonne Richardson on 02-09-2022 Monocytes (Bld) [#/Vol] 1.0 10*3/uL 0.0-0.8 [facility] Monocytes/100 WBC Auto (Bld) Ordered By: Ivonne Richardson on 02-09-2022 Monocytes/100 WBC (Bld) 7.1 % . [facility] Neutrophils Auto (Bld) [#/Vo l]Ordered By: Ivonne Richardson on 02-09-2022 Neutrophils (Bld) [#/Vol] 10.3 10*3/uL 1.8-7.7 [facility] Neutrophils/100 WBC Auto (Bl d)Ordered By: Ivonne Richardson on 02-09-2022 Neutrophils/100 WBC (Bld) 76.6 % . [facility] Platelet mean volume Auto (B ld) [Entitic vol]Ordered By: Ivonne Richardson on 02-09-2022 Platelet mean volume (Bld) [Entitic vol] 7.9 fL 6.3-10.7 [facility] Platelets Auto (Bld) [#/Vol] Ordered By: Ivonne Richardson on 02-09-2022 Platelets (Bld) [#/Vol] 213 10*3/uL 150-450 [facility] RBC Auto (Bld) [#/Vol]Ordere d By: Ivonne Richardson on 02-09-2022 RBC (Bld) [#/Vol] 3.91 10*6/uL 3.60-5.00 [facility] Amphetamine Screen Ql (U)Ord ered By: Ivonne Richardson on 02-08-2022 Amphetamines Ql (U) Negative Negative [facility] Automated erythrocytes count in urine sediment (number/area)Ordered By: Ivonne Richardson on 02-08-2022 RBC Auto (Urine sed) [#/Area] None seen [HPF] 0-4 [facility] Automated leukocytes count i n urine sediment (number/area)Ordered By: Ivonne Richardson on 02-08-2022 WBC Auto (Urine sed) [#/Area] 5-9 [HPF] 0-4 [facility] Barbiturates [Presence] in U rineOrdered By: Ivonne Richardson on 02-08-2022 Barbiturates Ql (U) Negative Negative [facility] Benzodiazepines [Presence] i n UrineOrdered By: Ivonne Richardson on 02-08-2022 Benzodiazepines Ql (U) Negative Negative [facility] Bilirubin Test strip Ql (U)O rdered By: Ivonne Richardson on 02-08-2022 Bilirubin Ql (U) Negative Negative [facility] COVID-19 Antigenon 2 COVID-19 Antigen Healthcare Worker?: N Reference Range: Negative Negative results, from patients with symptom onset beyond five days, should be treated as presumptive and confirmation with a molecular assay, if necessary, for patient management, may be performed. Negative results do not rule out COVID-19 and should not be used as the sole basis for treatment or patient management decisions, including infection control decisions. Negative results should be considered in the context of a patient's recent exposures, history and the presence of clinical signs and symptoms consistent with COVID-19. The Mirian SARS Antigen SAUL does not differentiate between SARS-CoV and SARS-CoV-2. This test was developed and its performance characteristic determined by [facility] and validated at [facility]. This test has not been FDA cleared or approved. This test has been authorized by FDA under an Emergency Use Authorization (EUA). This test has been validated in accordance with the FDA's Guidance Document (Policy for Diagnostics Testing in Laboratories Certified to Perform High Complexity Testing under CLIA prior to Emergency Use Authorization for Coronavirus Disease-2019 during the Public Health Emergency) issued on July 19, 2019. This test is only authorized for the duration of time the declaration that circumstances exist justifying the authorization of the emergency use of in vitro diagnostic tests for detection of SARS-CoV-2 virus and/or diagnosis of COVID-19 infection under section 564(b)(1) of the Act, 21 U.S.C. 360bbb-3(b)(1), unless the authorization is terminated or revoked sooner. SARS-CoV+SARS-CoV-2 (COVID-19) Ag [Presence] in Respiratory specimen by Rapid immunoassay Negative for SARS Antigen by SAUL PERFORMED BY: [place] [address] PATHOLOGIST BOWLING ALLEY OPERATOR NEAL SANCHEZ M.D. Normal [facility] Comment on above: Performed By: #### O GINNY, KENNEY, ADDONUAPLUS #### [address] COVID-19 SOFIAOrdered By: Juanito Richarsdon on 02-08-2022 SARS-CoV+SARS-CoV-2 (COVID-19) Ag IA.rapid Ql (Resp) Negative Negative [facility] Comment on above: This is a duplicate Mirian SARS Antigen (SAUL) result to be used for statistical tracking purpose only. Color Auto (U)Ordered By: Juanito Richardson on 02-08-2022 Color (U) Dark yellow Yellow [facility] Complete Blood Count Auto Di ffon 02-08-2022 Basophils (Bld) [#/Vol] 0.1 10*3/uL Normal 0.0-0.2 [facility] Comment on above: Result Comment: PERF ORMED BY: [place] [address] PATHOLOGIST BOWLING ALLEY OPERATOR NEAL SANCHEZ M.D. Performed By: #### R MS W RFX #### [facility] , #### CBC #### [facility] [address] [place] [address] Basophils/100 WBC (Bld) 0.7 % Normal . [facility] Comment on above: Performed By: #### R MS W RFX #### [facility] , #### CBC #### [facility] [address] [place] [address] Eosinophils (Bld) [#/Vol] 0.0 10*3/uL Normal 0.0-0.45 [facility] Comment on above: Performed By: #### R MS W RFX #### [facility] , #### CBC #### [facility] [address] [place] [address] Eosinophils/100 WBC (Bld) 0.1 % Normal . [facility] Comment on above: Performed By: #### R MS W RFX #### [facility] , #### CBC #### [address] Erythrocyte distribution width (RBC) [Ratio] 13.6 % Normal 11.9-15.3 [facility] Comment on above: Performed By: #### R MS W RFX #### [facility] , #### CBC #### [address] Hematocrit (Bld) [Volume fraction] 40.4 % Normal 34.0-46.4 [facility] Comment on above: Performed By: #### R MS W RFX #### [facility] , #### CBC #### [facility] [address] [place] [address] Hemoglobin (Bld) [Mass/Vol] 13.6 g/dL Normal 11.8-15.4 [facility] Comment on above: Performed By: #### R MS W RFX #### [facility] , #### CBC #### [facility] [address] Lymphocytes (Bld) [#/Vol] 1.2 10*3/uL Normal 1.00-4.8 [facility] Comment on above: Performed By: #### R MS W RFX #### [facility] , #### CBC #### [address] Lymphocytes/100 WBC (Bld) 10.0 % Normal . [facility] Comment on above: Performed By: #### R MS W RFX #### [facility] , #### CBC #### [address] MCH (RBC) [Entitic mass] 29.9 pg Normal 24.7-34.3 [facility] Comment on above: Performed By: #### R MS W RFX #### [facility] , #### CBC #### [address] MCV (RBC) [Entitic vol] 88.7 fL Normal 80-100 [facility] Comment on above: Performed By: #### R MS W RFX #### [facility] , #### CBC #### [address] Mean Corpuscular HGB Conc 33.7 g/dL Normal 32.0-35.0 [facility] Comment on above: Performed By: #### R MS W RFX #### [facility] , #### CBC #### [address] Monocytes (Bld) [#/Vol] 0.6 10*3/uL Normal 0.0-0.8 [facility] Comment on above: Performed By: #### R MS W RFX #### [facility] , #### CBC #### [place] [address] [place] Monocytes/100 WBC (Bld) 4.9 % Normal . [facility] Comment on above: Performed By: #### R MS W RFX #### [facility] , #### CBC #### [facility] [address] [place] [address] [place] Neutrophils (Bld) [#/Vol] 9.9 10*3/uL High 1.8-7.7 [facility] Comment on above: Performed By: #### R MS W RFX #### [facility] , #### CBC #### [facility] [address] Neutrophils/100 WBC (Bld) 84.3 % Normal . [facility] Comment on above: Performed By: #### R MS W RFX #### [facility] , #### CBC #### [facility] [address] [place] [address] [place] Nucleated RBC/100 WBC (Bld) [Ratio] 0.0 % Normal 0-0.5 [facility] Comment on above: Performed By: #### R MS W RFX #### [facility] , #### CBC #### [facility] [address] [place] [address] Platelet mean volume (Bld) [Entitic vol] 7.6 fL Normal 6.3-10.7 [facility] Comment on above: Performed By: #### R MS W RFX #### [facility] , #### CBC #### [facility] [address] [place] [address] [place] Platelets (Bld) [#/Vol] 259 10*3/uL Normal 150-450 [facility] Comment on above: Performed By: #### R MS W RFX #### [facility] , #### CBC #### [facility] [address] [place] [address] [place] RBC (Bld) [#/Vol] 4.55 10*6/uL Normal 3.60-5.00 [facility] Comment on above: Performed By: #### R MS W RFX #### [facility] , #### CBC #### [facility] [address] [place] [address] [place] WBC (Bld) [#/Vol] 11.7 10*3/uL High 4.5-11.0 [facility] Comment on above: Performed By: #### R MS W RFX #### [facility] , #### CBC #### [facility] [address] [place] [address] [place] Dipstick and Microscopicon 1 Appearance (U) Cloudy Critically abnormal Clear [facility] Comment on above: Order Comment: Name Collection Type:: Clean-Voided Midstream Performed By: #### O BUDS, CUU, ADDONUAPLUS #### [facility] [address] [place] [address] [place] Bacteria,Urine None Seen Normal None Seen [facility] Comment on above: Order Comment: Name Collection Type:: Clean-Voided Midstream Performed By: #### O BUDS, CUU, ADDONUAPLUS #### [place] [address] [place] Bilirubin,Urine Negative Normal Negative [facility] Comment on above: Order Comment: Name Collection Type:: Clean-Voided Midstream Performed By: #### O BUDS, CUU, ADDONUAPLUS #### [facility] [address] [place] [address] [place] Color (U) Dark Yellow Critically abnormal Yellow [facility] Comment on above: Order Comment: Name Collection Type:: Clean-Voided Midstream Performed By: #### O BUDS, CUU, ADDONUAPLUS #### [facility] [address] [place] [address] [place] Glucose Ql (U) Normal Normal Normal [facility] Comment on above: Order Comment: Name Collection Type:: Clean-Voided Midstream Performed By: #### O BUDS, CUU, ADDONUAPLUS #### [facility] [address] [place] [address] [place] Hyaline Casts,Urine 9-19 High 0-8 [facility] Comment on above: Order Comment: Name Collection Type:: Clean-Voided Midstream Result Comment: PERF ORMED BY: [place] [address] PATHOLOGIST BOWLING ALLEY OPERATOR NEAL SANCHEZ M.D. Performed By: #### O BUDS, CUU, ADDONUAPLUS #### [address] Ketones Ql (U) 4+ High Negative [facility] Comment on above: Order Comment: Name Collection Type:: Clean-Voided Midstream Performed By: #### O BUDS, CUU, ADDONUAPLUS #### [address] Leukocyte esterase Test strip Ql (U) 2+ High Negative [facility] Comment on above: Order Comment: Name Collection Type:: Clean-Voided Midstream Performed By: #### O BUDS, CUU, ADDONUAPLUS #### [place] [address] [place] Nitrite,Urine Negative Normal Negative [facility] Comment on above: Order Comment: Name Collection Type:: Clean-Voided Midstream Performed By: #### O BUDS, CUU, ADDONUAPLUS #### [facility] [address] [place] [address] [place] Occult Blood,Urine Negative Normal Negative [facility] Comment on above: Order Comment: Name Collection Type:: Clean-Voided Midstream Result Comment: PERF ORMED BY: [place] [address] PATHOLOGIST BOWLING ALLEY OPERATOR NEAL SANCHEZ M.D. Performed By: #### O BUDS, CUU, ADDONUAPLUS #### [facility] [address] [place] [address] [place] pH (U) 6.0 [pH] Normal 5.0-9.0 [facility] Comment on above: Order Comment: Name Collection Type:: Clean-Voided Midstream Performed By: #### O BUDS, CUU, ADDONUAPLUS #### [facility] [address] [place] [address] [place] Protein,Urine Trace High Negative [facility] Comment on above: Order Comment: Name Collection Type:: Clean-Voided Midstream Performed By: #### O BUDS, CUU, ADDONUAPLUS #### [facility] [address] [place] [address] RBC,Urine None Seen Normal 0-4 [facility] Comment on above: Order Comment: Name Collection Type:: Clean-Voided Midstream Performed By: #### O BUDS, CUU, ADDONUAPLUS #### [address] Renal Epithelial Cells,Urine None Seen Normal 0-1 [facility] Comment on above: Order Comment: Name Collection Type:: Clean-Voided Midstream Performed By: #### O BUDS, CUU, ADDONUAPLUS #### [facility] [address] [place] [address] Specificy [place],Urine 1.027 Normal 1.001-1.030 [facility] Comment on above: Order Comment: Name Collection Type:: Clean-Voided Midstream Performed By: #### O BUDS, CUU, ADDONUAPLUS #### [address] Squamous Epithelial Cell,Urine 10-19 High 0-2 [facility] Comment on above: Order Comment: Name Collection Type:: Clean-Voided Midstream Performed By: #### O BUDS, CUU, ADDONUAPLUS #### [facility] [address] [place] [address] Urobilinogen,Urine Normal Normal Normal [facility] Comment on above: Order Comment: Name Collection Type:: Clean-Voided Midstream Performed By: #### O BUDS, CUU, ADDONUAPLUS #### [place] [address] [place] WBC,Urine 5-9 High 0-4 [facility] Comment on above: Order Comment: Name Collection Type:: Clean-Voided Midstream Performed By: #### O BUDS, CUU, ADDONUAPLUS #### [facility] [address] [place] [address] Ketones Auto test strip (U) [Mass/Vol]Ordered By: Ivonne Richardson on 02-08-2022 Ketones (U) [Mass/Vol] 4+ Negative [facility] Laboratory - Drug toxicology Ordered By: Ivonne Richardson on 02-08-2022 Opiates Ql (U) Negative Negative [facility] Laboratory - UrinalysisOrder ed By: Ivonne Richardson on 02-08-2022 Hyaline casts LM Ql (Urine sed) 9-19 [LPF] 0-8 [facility] Nitrite Test strip Ql (U)Ord ered By: Ivonne Richardson on 02-08-2022 Nitrite Ql (U) Negative Negative [facility] No Panel InformationOrdered By: Ivonne Richardson on 02-08-2022 SARS Antigen (LFIA) [facility] OB Urine Drug Screen (NO THC )on 02-08-2022 Amphetamine Screen,Urine Negative Normal Negative [facility] Comment on above: Performed By: #### O BUDS, CUU, ADDONUAPLUS #### [facility] [address] [place] [address] [place] Barbiturate Screen,Urine Negative Normal Negative [facility] Comment on above: Performed By: #### O BUDS, CUU, ADDONUAPLUS #### [facility] [address] [place] [address] [place] Benzodiazepines Screen,Urine Negative Normal Negative [facility] Comment on above: Performed By: #### O BUDS, CUU, ADDONUAPLUS #### [facility] [address] [place] [address] [place] Cocaine Screen,Urine Negative Normal Negative [facility] Comment on above: Performed By: #### O BUDS, CUU, ADDONUAPLUS #### [address] Opiate Screen,Urine Negative Normal Negative [facility] Comment on above: Performed By: #### O BUDS, CUU, ADDONUAPLUS #### [address] Phencyclidine Screen, Urine Negative Normal Negative [facility] Comment on above: Result Comment: Thes e are unconfirmed results and should not be used for legal purposes. Drug Cut-Off Concentration: AMPH 1000 ng/mL IVONNE 200 ng/mL LISA 200 ng/mL COCM 300 ng/mL OP 300 ng/mL PCP 25 ng/mL PERFORMED BY: [place] [address] PATHOLOGIST BOWLING ALLEY OPERATOR NEAL SANCHEZ M.D. Performed By: #### O BUDS, CUU, ADDONUAPLUS #### [address] Phencyclidine Screen Ql (U)O rdered By: Ivonne Richardson on 02-08-2022 Phencyclidine Ql (U) Negative Negative [facility] Comment on above: These are unconfirme d results and should not be used for legal purposes. Drug Cut-Off Concentration: AMPH 1000 ng/mL IVONNE 200 ng/mL LISA 200 ng/mL COCM 300 ng/mL OP 300 ng/mL PCP 25 ng/mL Protein Auto test strip (U) [Mass/Vol]Ordered By: Ivonne Richardson on 02-08-2022 Protein (U) [Mass/Vol] Trace mg/dL Negative [facility] RPR w/rfx to Quant TP Abson 02-08-2022 RPR, Rfx Quant RPR Non-Reactive Normal Non Reactive [facility] Comment on above: Result Comment: Perf ormed at: CB - [facility] [address] [place] [id number] Nurse Informatics Educator: John Cain PhD, Phone: [phone] PERFORMED BY: [place] [address] PATHOLOGIST BOWLING ALLEY OPERATOR NEAL SANCHEZ M.D. Performed By: #### R MS W RFX #### [facility] , #### CBC #### [address] Reagin Ab [Presence] in Seru m by RPROrdered By: Ivonne Richardson on 02-08-2022 Reagin Ab RPR Ql (S) Non-Reactive Non Reactive [facility] Comment on above: Performed at: [address] [id number] Director: John Cain PhD, Phone: [phone] Mirian Ag Negativeon 02-09-20 Mirian Ag Negative Negative Normal Negative [facility] Comment on above: Result Comment: This is a duplicate Mirian SARS Antigen (SAUL) result to be used for statistical tracking purpose only. PERFORMED BY: [place] [address] PATHOLOGIST BOWLING ALLEY OPERATOR NEAL SANCHEZ M.D. Performed By: #### O KENNEY GROSS, SHANNANONUAPLUS #### [facility] [address] [place] [address] Specific gravity Auto test s trip (U) [Rel density]Ordered By: Ivonne Richardson on 02-08-2022 Specific gravity (U) [Rel density] 1.027 1.001-1.030 [facility] Squamous epithelial cells de tection in urine sediment by light microscopyOrdered By: Ivonne Richardson on 02-08-2022 Epithelial cells.squamous LM Ql (Urine sed) 10-19 [HPF] 0-2 [facility] Urine Cultureon 02-08-2022 Bacteria identified Cx Nom (U) >100,000 colonies/ml mixed bacterial skin contaminants 2 Days PERFORMED BY: [place] [address] PATHOLOGIST BOWLING ALLEY OPERATOR NEAL SANCHEZ M.D. Normal [facility] Comment on above: Performed By: #### O KENNEY GROSS, ADDONUAPLUS #### [facility] [address] [place] [address] Urine bacteria detection by automated methodOrdered By: Ivonne Richardson on 02-08-2022 Bacteria Auto Ql (U) None seen None Seen [facility] Urine clarity by refractomet ry automatedOrdered By: Ivonne Richardson on 02-08-2022 Clarity Refractometry automated (U) Cloudy Clear [facility] Urine cocaine detectionOrder ed By: Ivonne Richardson on 02-08-2022 Cocaine Ql (U) Negative Negative [facility] Urine glucose measurement by automated test strip (mass/volume)Ordered By: Ivonne Richardson on 02-08-2022 Glucose Auto test strip (U) [Mass/Vol] Normal mg/dL Normal [facility] Urine hemoglobin detection b y automated test stripOrdered By: Ivonne Richardson on 02-08-2022 Hemoglobin Auto test strip Ql (U) Negative Negative [facility] Urine leukocyte esterase det ection by automated test stripOrdered By: Ivonne Richardson on 02-08-2022 Leukocyte esterase Auto test strip Ql (U) 2+ Negative [facility] Urine sediment renal epithel ial cell count by microscopy (number/high power field)Ordered By: Ivonne Richardson on 02-08-2022 Epithelial cells.renal LM.HPF (Urine sed) [#/Area] None seen [HPF] 0-1 [facility] Urobilinogen Auto test strip (U) [Mass/Vol]Ordered By: Ivonne Richardson on 02-08-2022 Urobilinogen (U) [Mass/Vol] Normal mg/dL Normal [facility] pH Auto test strip (U)Ordere d By: Ivonne Richardson on 02-08-2022 pH (U) 6.0 [pH] 5.0-9.0 [facility] Amphetamine Screen Ql (U)Ord ered By: EZEKIEL Matthews on 01-28-2022 Amphetamines Ql (U) Negative Negative [facility] Barbiturates [Presence] in U rineOrdered By: EZEKIEL Matthews on 01-28-2022 Barbiturates Ql (U) Negative Negative [facility] Benzodiazepines [Presence] i n UrineOrdered By: EZEKIEL Matthews on 01-28-2022 Benzodiazepines Ql (U) Negative Negative [facility] Bilirubin Test strip Ql (U)O rdered By: EZEKIEL Matthews on 01-28-2022 Bilirubin Ql (U) Negative Negative [facility] Color Auto (U)Ordered By: MD CHRISTIE Matthews on 01-28-2022 Color (U) Yellow Yellow [facility] Ketones Auto test strip (U) [Mass/Vol]Ordered By: EZEKIEL Matthews on 01-28-2022 Ketones (U) [Mass/Vol] Negative Negative [facility] Laboratory - Drug toxicology Ordered By: EZEKIEL Matthews on 01-28-2022 Opiates Ql (U) Negative Negative [facility] Nitrite Test strip Ql (U)Ord ered By: EZEKIEL Matthews on 01-28-2022 Nitrite Ql (U) Negative Negative [facility] OB Urine Drug Screen (NO THC )on 01-28-2022 Amphetamine Screen,Urine Negative Normal Negative [facility] Comment on above: Performed By: #### U A, OBUDS #### [facility] [address] [place] [address] [place] Barbiturate Screen,Urine Negative Normal Negative [facility] Comment on above: Performed By: #### U A, OBUDS #### [facility] [address] [place] [address] [place] Benzodiazepines Screen,Urine Negative Normal Negative [facility] Comment on above: Performed By: #### U A, OBUDS #### [facility] [address] [place] [address] [place] Cocaine Screen,Urine Negative Normal Negative [facility] Comment on above: Performed By: #### U A, OBUDS #### [facility] [address] [place] [address] [place] Opiate Screen,Urine Negative Normal Negative [facility] Comment on above: Performed By: #### U A, OBUDS #### [facility] [address] [place] [address] [place] Phencyclidine Screen, Urine Negative Normal Negative [facility] Comment on above: Result Comment: Thes e are unconfirmed results and should not be used for legal purposes. Drug Cut-Off Concentration: AMPH 1000 ng/mL IVONNE 200 ng/mL LISA 200 ng/mL COCM 300 ng/mL OP 300 ng/mL PCP 25 ng/mL PERFORMED BY: [place] [address] PATHOLOGIST [employer]ING [employer] OPERATOR NEAL SANCHEZ M.D. Performed By: #### U A, OBUDS #### [facility] [address] [place] [address] Phencyclidine Screen Ql (U)O rdered By: EZEKIEL Matthews on 01-28-2022 Phencyclidine Ql (U) Negative Negative [facility] Comment on above: These are unconfirme d results and should not be used for legal purposes. Drug Cut-Off Concentration: AMPH 1000 ng/mL IVONNE 200 ng/mL LISA 200 ng/mL COCM 300 ng/mL OP 300 ng/mL PCP 25 ng/mL Protein Auto test strip (U) [Mass/Vol]Ordered By: EZEKIEL Matthews on 01-28-2022 Protein (U) [Mass/Vol] Negative Negative [facility] Specific gravity Auto test s trip (U) [Rel density]Ordered By: EZEKIEL Matthews on 01-28-2022 Specific gravity (U) [Rel density] 1.009 1.001-1.030 [facility] Urinalysison 01-28-2022 Appearance (U) Clear Normal Clear [facility] Comment on above: Order Comment: Name Collection Type:: Clean-Voided Midstream Performed By: #### U A, OBUDS #### [facility] [address] [place] [address] [place] Bilirubin,Urine Negative Normal Negative [facility] Comment on above: Order Comment: Name Collection Type:: Clean-Voided Midstream Performed By: #### U A, OBUDS #### [facility] [address] [place] [address] [place] Color (U) Yellow Normal Yellow [facility] Comment on above: Order Comment: Name Collection Type:: Clean-Voided Midstream Performed By: #### U A, OBUDS #### [facility] [address] [place] [address] [place] Glucose Ql (U) Normal Normal Normal [facility] Comment on above: Order Comment: Name Collection Type:: Clean-Voided Midstream Performed By: #### U A, OBUDS #### [facility] [address] [place] [address] [place] Ketones Ql (U) Negative Normal Negative [facility] Comment on above: Order Comment: Name Collection Type:: Clean-Voided Midstream Performed By: #### U A, OBUDS #### [address] Leukocyte esterase Test strip Ql (U) Negative Normal Negative [facility] Comment on above: Order Comment: Name Collection Type:: Clean-Voided Midstream Performed By: #### U A, OBUDS #### [place] [address] [place] Nitrite,Urine Negative Normal Negative [facility] Comment on above: Order Comment: Name Collection Type:: Clean-Voided Midstream Performed By: #### U A, OBUDS #### [address] Occult Blood,Urine Negative Normal Negative [facility] Comment on above: Order Comment: Name Collection Type:: Clean-Voided Midstream Result Comment: PERF ORMED BY: [place] [address] PATHOLOGIST [employer]ING [employer] OPERATOR NEAL SANCHEZ M.D. Performed By: #### U A, OBUDS #### [place] [address] [place] pH (U) 7.0 [pH] Normal 5.0-9.0 [facility] Comment on above: Order Comment: Name Collection Type:: Clean-Voided Midstream Performed By: #### U A, OBUDS #### [place] [address] [place] Protein,Urine Negative Normal Negative [facility] Comment on above: Order Comment: Name Collection Type:: Clean-Voided Midstream Performed By: #### U A, OBUDS #### [place] [address] [place] Specificy [place],Urine 1.009 Normal 1.001-1.030 [facility] Comment on above: Order Comment: Name Collection Type:: Clean-Voided Midstream Performed By: #### U A, OBUDS #### [facility] [address] [place] [address] [place] Urobilinogen,Urine Normal Normal Normal [facility] Comment on above: Order Comment: Name Collection Type:: Clean-Voided Midstream Performed By: #### U A, OBUDS #### [facility] [address] [place] [address] [place] Urine clarity by refractomet ry automatedOrdered By: EZEKIEL Matthews on 01-28-2022 Clarity Refractometry automated (U) Clear Clear [facility] Urine cocaine detectionOrder ed By: EZEKIEL Matthews on 01-28-2022 Cocaine Ql (U) Negative Negative [facility] Urine glucose measurement by automated test strip (mass/volume)Ordered By: MARIA LUZ Matthews on 01-28-2022 Glucose Auto test strip (U) [Mass/Vol] Normal mg/dL Normal [facility] Urine hemoglobin detection b y automated test stripOrdered By: EZEKIEL Matthews on 01-28-2022 Hemoglobin Auto test strip Ql (U) Negative Negative [facility] Urine leukocyte esterase det ection by automated test stripOrdered By: EZEKIEL Matthews on 01-28-2022 Leukocyte esterase Auto test strip Ql (U) Negative Negative [facility] Urobilinogen Auto test strip (U) [Mass/Vol]Ordered By: EZEKIEL Matthews on 01-28-2022 Urobilinogen (U) [Mass/Vol] Normal mg/dL Normal [facility] pH Auto test strip (U)Ordere d By: EZEKIEL Matthews on 01-28-2022 pH (U) 7.0 [pH] 5.0-9.0 [facility] S. agalactiae Org specific c x Ql (Unsp spec)Ordered By: EZEKIEL Matthews on 01-17-2022 Streptococcus agalactiae culture No Group B Beta Streptococcus Isolated 3 Days [facility] Strep B Cultureon 09-29-2022 Strep B Culture Reason for Exam 35 weeks gestation of ; screening for stre Vaginal/Rectal Reason for Exam: 35 weeks gestation of ; screening for stre : Vaginal/Rectal No Group B Beta Streptococcus Isolated 3 Days PERFORMED BY: [place] [address] PATHOLOGIST [employer]LING [employer]LEY OPERATOR NEAL SANCHEZ M.D. Normal [facility] Comment on above: Performed By: #### O BUDS, CUU, ADDONUAPLUS #### [facility] [address] [place] [address] Fibronectinon 12-24-19 Fibronectin Negative Normal Negative [facility] Comment on above: Order Comment: Reaso n for Exam 32 weeks gestation of ;Pelvic pressure in female;Lo Result Comment: PERF ORMED BY: [place] [address] PATHOLOGIST [employer]LING [employer]LEY OPERATOR NEAL SANCHEZ M.D. Performed By: #### F FN #### [facility] [address] [place] [address] fibronectinOrdered By: EZEKIEL Matthews on 12-23-2021 Fibronectin. (Vag fld) [Mass/Vol] Negative Negative [facility] CBC AUTO DIFFon 09-03-2021 BASO # 0.0 103/ul Normal 0.0-0.1 [facility] Comment on above: Performed By: #### C BC #### [facility] [address] [address] [address] Rafa Johnson Basophils/100 WBC (Bld) 0.3 % Normal 0.2-2.0 [facility] Comment on above: Performed By: #### C BC #### [facility] [address] [address] [address] Rafa Johnson EO # 0.0 103/ul Normal 0.0-0.7 [facility] Comment on above: Performed By: #### C BC #### [facility] [address] [place] [address] Dr. Rafa Johnson Eosinophils/100 WBC (Bld) 0.3 % Critically low 0.9-7.0 [facility] Comment on above: Performed By: #### C BC #### [facility] [address] [place] [address] Dr. Rafa Johnson Erythrocyte distribution width (RBC) [Ratio] 13.0 % Normal 11.0-15.0 [facility] Comment on above: Performed By: #### C BC #### [facility] [address] [place] [address] Dr. Rafa Johnson Hematocrit (Bld) [Volume fraction] 39.6 % Normal 36.0-48.0 [facility] Comment on above: Performed By: #### C BC #### [facility] [address] [place] [address] Dr. Rafa Johnson Hemoglobin (Bld) [Mass/Vol] 13.2 g/dL Normal 12.0-16.0 [facility] Comment on above: Performed By: #### C BC #### [facility] [address] [place] [address] Dr. Rafa Johnson IG # 0.04 10e3/ul Critically high 0.00-0.03 [facility] Comment on above: Performed By: #### C BC #### [facility] [address] [place] [address] Dr. Rafa Johnson IG % 0.4 % Normal 0.0-0.5 [facility] Comment on above: Performed By: #### C BC #### [facility] [address] [place] [address] Dr. Rafa Johnson LYMPH # 1.5 103/ul Normal 1.2-3.8 [facility] Comment on above: Performed By: #### C BC #### [facility] [address] [place] [address] Dr. Rafa Johnson Lymphocytes/100 WBC (Bld) 15.4 % Critically low 20.5-60.0 [facility] Comment on above: Performed By: #### C BC #### [facility] [address] [place] [address] Dr. Rafa Johnson MANUAL DIFF REQ NO Normal [facility] Comment on above: Performed By: #### C BC #### [facility] [address] [address] [address] Rafa Johnson MCH (RBC) [Entitic mass] 31.1 pg Normal 26.7-34.0 [facility] Comment on above: Performed By: #### C BC #### [facility] [address] [place] [address] Dr. Rafa Johnson MCHC (RBC) [Mass/Vol] 33.3 g/dL Normal 29.9-35.2 [facility] Comment on above: Performed By: #### C BC #### [facility] [address] [place] [address] Dr. Rafa Johnson MCV (RBC) [Entitic vol] 93.2 fL Normal 81.0-99.0 [facility] Comment on above: Performed By: #### C BC #### [facility] [address] [place] [address] Dr. Rafa Johnson MONO # 0.4 103/ul Normal 0.3-0.8 [facility] Comment on above: Performed By: #### C BC #### [facility] [address] [place] [address] Dr. Rafa Johnson Monocytes/100 WBC (Bld) 4.0 % Normal 1.7-12.0 [facility] Comment on above: Performed By: #### C BC #### [facility] [address] [place] [address] Dr. Rafa Johnson NEUT # 7.7 103/ul Critically high 1.4-6.5 [facility] Comment on above: Performed By: #### C BC #### [facility] [address] [place] [address] Dr. Rafa Johnson Neutrophils/100 WBC (Bld) 79.6 % Critically high 43.0-75.0 [facility] Comment on above: Performed By: #### C BC #### [facility] [address] [place] [address] Dr. Rafa Johnson Platelet mean volume (Bld) [Entitic vol] 9.2 fL Critically low 9.5-13.5 [facility] Comment on above: Performed By: #### C BC #### [facility] [address] [place] [address] Dr. Rafa Johnson PLT 191 103/ul Normal 150-450 [facility] Comment on above: Performed By: #### C BC #### [facility] [address] [place] [address] Dr. Rafa Johnson RBC 4.25 106/ul Normal 4.20-5.40 [facility] Comment on above: Performed By: #### C BC #### [facility] [address] [place] [address] Dr. Rafa Johnson WBC 9.7 103/ul Normal 4.0-11.0 [facility] Comment on above: Performed By: #### C BC #### [facility] [address] [place] [address] Dr. Rafa Johnson ER URINE PROFILEon 2 Bilirubin Ql (U) Negative Normal NEGATIVE [facility] Comment on above: Performed By: #### E RUR #### [facility] [address] [place] [address] Dr. Rafa Johnson Clarity (U) CLEAR Normal CLEAR [facility] Comment on above: Performed By: #### E RUR #### [facility] [address] [place] [address] Dr. Rafa Johnson Color (U) LT. YELLOW Normal YELLOW [facility] Comment on above: Performed By: #### E RUR #### [facility] [address] [place] [address] Dr. Rafa SMART A micrscopic examination will be performed if indicated. Normal [facility] Comment on above: Performed By: #### E RUR #### [facility] [address] [place] [address] Dr. Rafa Johnson Glucose Ql (U) Negative Normal NEGATIVE [facility] Comment on above: Performed By: #### E RUR #### [facility] [address] [place] [address] Dr. Rafa Johnson Hemoglobin Ql (U) Negative Normal NEGATIVE [facility] Comment on above: Performed By: #### E RUR #### [facility] [address] [place] [address] Dr. Rafa Johnson Ketones Ql (U) TRACE Abnormal NEGATIVE [facility] Comment on above: Performed By: #### E RUR #### [facility] [address] [place] [address] Dr. Rafa Johnson LEUKOCYTES Negative Normal NEGATIVE [facility] Comment on above: Performed By: #### E RUR #### [facility] [address] [place] [address] Dr. Rafa Johnson Nitrite Ql (U) Negative Normal NEGATIVE [facility] Comment on above: Performed By: #### E RUR #### [facility] [address] [place] [address] Dr. Rafa Johnson pH (U) 8.0 [pH] Normal 5-9 [facility] Comment on above: Performed By: #### E RUR #### [facility] [address] [place] [address] Dr. Rafa Johnson SPEC GRAVITY 1.020 Normal 1.005-<=1.02 5 [facility] Comment on above: Performed By: #### E RUR #### [facility] [address] [place] [address] Dr. Rafa Johnson UA PROTEIN Negative Normal NEGATIVE/ TRACE [facility] Comment on above: Performed By: #### E RUR #### [facility] [address] [place] [address] Dr. Rafa Johnson UR MICRO IND NOT INDICATED Normal [facility] Comment on above: Performed By: #### E RUR #### [facility] [address] [place] [address] Dr. Rafa Johnson Urobilinogen Qn (U) 1.0 {Nila'U}/dL Normal 0.2 - 1. 0 [facility] Comment on above: Performed By: #### E RUR #### [facility] [address] [place] [address] Dr. Rafa Johnson PROF CHEM 8 (BAS METB)on Anion gap [Moles/Vol] 12.9 mmol/L Normal [facility] Comment on above: Performed By: #### B MP #### [facility] [address] [place] [address] Dr. Rafa Johnson Calcium [Mass/Vol] 8.4 mg/dL Critically low 8.5-10.1 [facility] Comment on above: Performed By: #### B MP #### [facility] [address] [place] [address] Dr. Rafa Johnson Chloride [Moles/Vol] 103 mmol/L Normal 98-107 [facility] Comment on above: Performed By: #### B MP #### [facility] [address] [place] [address] Dr. Rafa Johnson CO2 [Moles/Vol] 25.8 mmol/L Normal 21.0-32.0 [facility] Comment on above: Performed By: #### B MP #### [facility] [address] [place] [address] Dr. Rafa Johnosn Creatinine [Mass/Vol] 0.47 mg/dL Critically low 0.55-1.02 [facility] Comment on above: Performed By: #### B MP #### [facility] [address] [place] [address] Dr. Rafa Johnson EGFR-AF [place] >60 Normal >=60 [facility] Comment on above: Performed By: #### B MP #### [facility] [address] [place] [address] Dr. Rafa Johnson EGFR-NON AF [place] >60 Normal >=60 [facility] Comment on above: Performed By: #### B MP #### [facility] [address] [place] [address] Dr. Rafa Johnson Glucose [Mass/Vol] 84 mg/dL Normal 74-106 [facility] Comment on above: Performed By: #### B MP #### [facility] [address] [place] [address] Dr. Rafa Johnson Potassium [Moles/Vol] 3.7 mmol/L Normal 3.5-5.1 [facility] Comment on above: Performed By: #### B MP #### [facility] [address] [address] [address] Rafa Johnson Sodium [Moles/Vol] 138 mmol/L Normal 136-145 [facility] Comment on above: Performed By: #### B MP #### [facility] [address] [address] [address] Rafa Johnson Urea nitrogen [Mass/Vol] 9.0 mg/dL Normal 7.0-18.0 [facility] Comment on above: Performed By: #### B MP #### [facility] [address] [place] [address] Dr. Rafa Johnson Urea nitrogen/Creatinine [Mass ratio] 19.1 mg/mg Normal [facility] Comment on above: Performed By: #### B MP #### [facility] [address] [place] [address] Dr. Rafa Johnson CBC W MANUAL DIFFon 07-24-19 22 ATYPICAL LYMPH # Normal [facility] Comment on above: Performed By: #### C VICENTE #### [facility] [address] [place] [address] Dr. Rafa Johnson ATYPICAL LYMPH % Normal [facility] Comment on above: Performed By: #### C VICENTE #### [facility] [address] [place] [address] Dr. Rafa Johnson BAND # Normal 0.0-0.3 [facility] Comment on above: Performed By: #### C VICENTE #### [facility] [address] [place] [address] Dr. Rafa Johnson BAND % Normal 0-5 [facility] Comment on above: Performed By: #### C VICENTE #### [facility] [address] [place] [address] Dr. Rafa Johnson BASOM # 0.00 103/ul Normal 0.00-0.10 [facility] Comment on above: Performed By: #### C VICENTE #### [facility] [address] [place] [address] Dr. Rafa Johnson BASOM % 0.0 % Critically low 0.2-2.0 [facility] Comment on above: Performed By: #### C VICENTE #### [facility] [address] [place] [address] Dr. Rafa Johnson BLAST # Normal [facility] Comment on above: Performed By: #### C VICENTE #### [facility] [address] [place] [address] Dr. Rafa Johnson BLAST % Normal [facility] Comment on above: Performed By: #### C VICENTE #### [facility] [address] [place] [address] Dr. Rafa Johnson CORRECTED WBC Normal 4.0-11.0 [facility] Comment on above: Performed By: #### C VICENTE #### [facility] [address] [place] [address] Dr. Rafa Johnson EOS # 0.00 103/ul Normal 0.00-0.70 [facility] Comment on above: Performed By: #### C VICENTE #### [facility] [address] [place] [address] Dr. Rafa Johnson EOS% 0.0 % Critically low 0.9-7.0 [facility] Comment on above: Performed By: #### C VICENTE #### [facility] [address] [place] [address] Dr. Rafa Johnson HCT 41.7 % Normal 36.0-48.0 [facility] Comment on above: Performed By: #### C VICENTE #### [facility] [address] [place] [address] Dr. Rafa Johnson HGB 13.7 g/dl Normal 12.0-16.0 [facility] Comment on above: Performed By: #### C VICENTE #### [facility] [address] [place] [address] Dr. Rafa Johnson LYMPHM # 0.46 103/ul Critically low 1.20-3.80 [facility] Comment on above: Performed By: #### C VICENTE #### [facility] [address] [place] [address] Dr. Rafa Johnson LYMPHM% 5.0 % Critically low 20.5-60.0 [facility] Comment on above: Performed By: #### C VICENTE #### [facility] [address] [place] [address] Dr. Rafa Johnson MCH 30.2 pg Normal 26.7-34.0 [facility] Comment on above: Performed By: #### C IVCENTE #### [facility] [address] [place] [address] Dr. Rafa Johnson MCHC 32.9 g/dl Normal 29.9-35.2 [facility] Comment on above: Performed By: #### C VICENTE #### [facility] [address] [place] [address] Dr. Rafa Johnson MCV 92.1 fL Normal 81.0-99.0 [facility] Comment on above: Performed By: #### C VICENTE #### [facility] [address] [place] [address] Dr. Rafa Johnson METAMYELOCYTE # Normal [facility] Comment on above: Performed By: #### C VICENTE #### [facility] [address] [place] [address] Dr. Rafa Johnson METAMYELOCYTE % Normal [facility] Comment on above: Performed By: #### C VICENTE #### [facility] [address] [place] [address] Dr. Rafa Johnson MONOM# 0.36 103/ul Normal 0.30-0.80 [facility] Comment on above: Performed By: #### C VICENTE #### [facility] [address] [place] [address] Dr. Rafa Johnson MONOM% 4.0 % Normal 1.7-12.0 [facility] Comment on above: Performed By: #### C VICENTE #### [facility] [address] [place] [address] Dr. Rafa Johnson MPV 8.8 fL Critically low 9.5-13.5 [facility] Comment on above: Performed By: #### C VICENTE #### [facility] [address] [address] [address] Rafa Johnson MYELOCYTE # Normal [facility] Comment on above: Performed By: #### C VICENTE #### [facility] [address] [address] [address] Rafa Johnson MYELOCYTE % Normal [facility] Comment on above: Performed By: #### C VICENTE #### [facility] [id number] Rafa Johnson NRBC Normal [facility] Comment on above: Performed By: #### C VICENTE #### [facility] [address] [address] [address] Rafa Johnson PLT 191 103/ul Normal 150-450 [facility] Comment on above: Performed By: #### C VICENTE #### [facility] [address] [address] [address] Rafa Johnson RBC 4.53 106/ul Normal 4.20-5.40 [facility] Comment on above: Performed By: #### C VICENTE #### [facility] [address] [address] [address] Rafa Johnson RDW 13.9 % Normal 11.0-15.0 [facility] Comment on above: Performed By: #### C VICENTE #### [facility] [address] [address] [address] Rafa Johnson SEG # 8.28 103/ul Critically high 1.40-6.50 [facility] Comment on above: Performed By: #### C VICENTE #### [facility] [address] [place] [address] Dr. Rafa Johnson SEG % 91.0 % Critically high 43.0-75.0 [facility] Comment on above: Performed By: #### C BCLYNDSEY #### [facility] [address] [address] [address] Rafa Johnson WBC 9.1 103/ul Normal 4.0-11.0 [facility] Comment on above: Performed By: #### C VICENTE #### [facility] [address] [address] [address] Rafa Johnson ER URINE PROFILEon 2 Bilirubin Ql (U) Negative Normal NEGATIVE [facility] Comment on above: Performed By: #### C MP, LIPA #### [facility] [address] [place] [address] Dr. Rafa Johnson Clarity (U) CLEAR Normal CLEAR [facility] Comment on above: Performed By: #### C MP, LIPA #### [facility] [address] [place] [address] Dr. Rafa Johnson Color (U) DK. YELLOW Normal YELLOW [facility] Comment on above: Performed By: #### C MP, LIPA #### [facility] [address] [place] [address] Dr. Rafa SMART A micrscopic examination will be performed if indicated. Normal [facility] Comment on above: Performed By: #### C MP, LIPA #### [facility] [address] [place] [address] Dr. Rafa Johnson Glucose Ql (U) Negative Normal NEGATIVE [facility] Comment on above: Performed By: #### C MP, LIPA #### [facility] [address] [place] [address] Dr. Rafa Johnson Hemoglobin Ql (U) Negative Normal NEGATIVE [facility] Comment on above: Performed By: #### C MP, LIPA #### [facility] [address] [place] [address] Dr. Rafa Johnson Ketones Ql (U) 15 mg/dl Abnormal NEGATIVE [facility] Comment on above: Performed By: #### C MP, LIPA #### [facility] [address] [place] [address] Dr. Rafa Johnson LEUKOCYTES Negative Normal NEGATIVE [facility] Comment on above: Performed By: #### C MP, LIPA #### [facility] [address] [place] [address] Dr. Rafa Johnson Nitrite Ql (U) Negative Normal NEGATIVE [facility] Comment on above: Performed By: #### C MP, LIPA #### [facility] [address] [place] [address] Dr. Rafa Johnson pH (U) 6.5 [pH] Normal 5-9 [facility] Comment on above: Performed By: #### C MP, LIPA #### [facility] [address] [place] [address] Dr. Rafa Johnson SPEC GRAVITY 1.025 Normal 1.005-<=1.02 5 [facility] Comment on above: Performed By: #### C MP, LIPA #### [facility] [address] [place] [address] Dr. Rafa Johnson UA PROTEIN Negative Normal NEGATIVE/ TRACE [facility] Comment on above: Performed By: #### C MP, LIPA #### [facility] [address] [place] [address] Dr. Rafa Johnson UR MICRO IND NOT INDICATED Normal [facility] Comment on above: Performed By: #### C MP, LIPA #### [facility] [address] [place] [address] Dr. Rafa Johnson Urobilinogen Qn (U) 0.2 {Nila'U}/dL Normal 0.2 - 1. 0 [facility] Comment on above: Performed By: #### C MP, LIPA #### [facility] [address] [place] [address] Dr. Rafa Johnson LIPASEon 07-23-2021 Lipase [Catalytic activity/Vol] 59.0 U/L Normal 23.0-300.0 [facility] Comment on above: Performed By: #### C MP, LIPA #### [facility] [address] [place] [address] Dr. Rafa Johnson URon 07-23-2021 , QUAL Positive Abnormal NEGATIVE [facility] Comment on above: Performed By: #### E RUR, PREGU #### [facility] [address] [place] [address] Dr. Rafa Johnson PROF 14(COMP METB)on 022 Albumin [Mass/Vol] 3.6 g/dL Normal 3.4-5.0 [facility] Comment on above: Performed By: #### C MP, LIPA #### [facility] [address] [address] [address] Rafa Johnson Albumin/Globulin [Mass ratio] 1.0 {ratio} Normal [facility] Comment on above: Performed By: #### C MP, LIPA #### [facility] [address] [address] [address] Rafa Johnson ALP [Catalytic activity/Vol] 54 U/L Normal 46-116 [facility] Comment on above: Performed By: #### C MP, LIPA #### [facility] [address] [address] [address] Rafa Johnson ALT [Catalytic activity/Vol] 12 U/L Critically low 14-59 [facility] Comment on above: Performed By: #### C MP, LIPA #### [facility] [address] [place] [address] Dr. Rafa Johnson Anion gap [Moles/Vol] 13.6 mmol/L Normal [facility] Comment on above: Performed By: #### C MP, LIPA #### [facility] [address] [address] [address] Rafa Johnson AST [Catalytic activity/Vol] 15 U/L Normal 15-37 [facility] Comment on above: Performed By: #### C MP, LIPA #### [facility] [address] [address] [address] Rafa Johnson Bilirubin [Mass/Vol] 0.9 mg/dL Normal 0.2-1.3 [facility] Comment on above: Performed By: #### C MP, LIPA #### [facility] [address] [address] [address] Rafa Johnson Calcium [Mass/Vol] 8.5 mg/dL Normal 8.5-10.1 [facility] Comment on above: Performed By: #### C MP, LIPA #### [facility] [address] [address] [address] Rafa Johnson Chloride [Moles/Vol] 101 mmol/L Normal 98-107 [facility] Comment on above: Performed By: #### C MP, LIPA #### [facility] [address] [address] [address] Rafa Johnson CO2 [Moles/Vol] 23.9 mmol/L Normal 22.0-30.0 [facility] Comment on above: Performed By: #### C MP, LIPA #### [facility] [address] [address] [address] Rafa Johnson Creatinine [Mass/Vol] 0.54 mg/dL Normal 0.52-1.04 [facility] Comment on above: Performed By: #### C MP, LIPA #### [facility] [address] [address] [address] Rafa Johnson EGFR-AF [place] >60 Normal >=60 [facility] Comment on above: Performed By: #### C MP, LIPA #### [facility] [address] [address] [address] Rafa Johnson EGFR-NON AF [place] >60 Normal >=60 [facility] Comment on above: Performed By: #### C MP, LIPA #### [facility] [address] [address] [address] Rafa Johnson Globulin (S) [Mass/Vol] 3.6 g/dL Normal [facility] Comment on above: Performed By: #### C MP, LIPA #### [facility] [address] [address] [address] Rafa Johnson Glucose [Mass/Vol] 107 mg/dL Critically high 74-106 [facility] Comment on above: Performed By: #### C MP, LIPA #### [facility] [address] [address] [address] Rafa Johnson Potassium [Moles/Vol] 3.5 mmol/L Normal 3.4-5.0 [facility] Comment on above: Performed By: #### C MP, LIPA #### [facility] [address] [address] [address] Rafa Johnson Protein [Mass/Vol] 7.2 g/dL Normal 6.1-8.2 [facility] Comment on above: Performed By: #### C MP, LIPA #### [facility] [address] [address] [address] Rafa Johnson Sodium [Moles/Vol] 135 mmol/L Critically low 137-145 [facility] Comment on above: Performed By: #### C MP, LIPA #### [facility] [address] [address] [address] Rafa Johnson Urea nitrogen [Mass/Vol] 12.0 mg/dL Normal 7.0-18.0 [facility] Comment on above: Performed By: #### C MP, LIPA #### [facility] [address] [address] [address] Rafa Johnson Urea nitrogen/Creatinine [Mass ratio] 22.2 mg/mg Normal [facility] Comment on above: Performed By: #### C MP, LIPA #### [facility] [address] [address] [address] Rafa Johnson Vaginitis (VG)on 07-21-2021 Atopobium Vaginae High - 2 Critically abnormal . [facility] Comment on above: Order Comment: Reaso n for Exam Leukorrhea Performed By: #### V AGINITIS #### [facility] , BVAB2 Low - 0 Normal . [facility] Comment on above: Order Comment: Reaso n for Exam Leukorrhea Performed By: #### V AGINITIS #### [facility] , Luz Albicans, JANY Positive Critically abnormal Negative [facility] Comment on above: Order Comment: Reaso n for Exam Leukorrhea Result Comment: This test was developed and its performance characteristics determined by [facility]. It has not been cleared or approved by the Food and Drug Administration. Performed By: #### V AGINITIS #### [facility] , Luz Glabrata, JANY Negative Normal Negative [facility] Comment on above: Order Comment: Reaso n for Exam Leukorrhea Result Comment: This test was developed and its performance characteristics determined by [facility]. It has not been cleared or approved by the Food and Drug Administration. PERFORMED BY: [facility] [address] [place] [address] PATHOLOGIST [employer]LEY OPERATOR NEAL SANCHEZ M.D. Performed By: #### Jamaal MORENOTIS #### [facility] , Megasphaera Low - 0 Normal . [facility] Comment on above: Order Comment: Reaso n for Exam Leukorrhea Result Comment: Calc ulate total score by adding the 3 individual bacterial vaginosis (BV) marker scores together. Total score is interpreted as follows: Total score 0-1: Indicates the absence of BV. Total score 2: Indeterminate for BV. Additional clinical data should be evaluated to establish a diagnosis. Total score 3-6: Indicates the presence of BV. This test was developed and its performance characteristics determined by [employer] [facility]. It has not been cleared or approved by the Food and Drug Administration. Performed By: #### Jamaal AGSCOTTIETIS #### [facility] , Tric Vag JANY Negative Normal Negative [facility] Comment on above: Order Comment: Reaso n for Exam Leukorrhea Result Comment: Perf ormed at: =G - [facility] [address] [id number] Nurse Informatics Educator: Catherine Hernandez MD, Phone: [phone] Performed By: #### Jamaal PAGAN #### [facility] , Covid-19 PCR (CVDTB)on 03-19 SARS-CoV-2 (COVID-19) RNA JANY+probe Ql (Unsp spec) Not detected Normal NOT DETECTED [facility] Comment on above: Result Comment: This test is not yet approved or cleared by the [place] FDA. When there are no FDA-approved or cleared tests available, and other criteria are met, FDA can make tests available under an emergency access mechanism called an Emergency Use Authorization (EUA). The EUA for this test is supported by the [place] P[place] of Health and Human Service's (HHS's) declaration that circumstances exist to justify the emergency use of in vitro diagnostics for the detection and/or diagnosis of the virus that causes COVID-19. This EUA will remain in effect (meaning this test can be used) for the duration of the COVID-19 declaration justifying emergency of IVDs, unless it is terminated or revoked by FDA (after which the test may no longer be used). When diagnostic testing is negative, the possibility of a false negative should be considered in the context of a patient's recent exposures and the presence of clinical signs and symptoms consistent with SARS-CoV-2. Performed By: #### C MP, LIPA #### [facility] [address] [place], [place] [address] Dr. Rafa Johnson COVID Quick Testingon 2020 Result Negative [facility] Other Quick Strepon 03-06-2021 S. pyogenes Org specific cx Ql (Throat) Positive [facility] Other Quick Strep [facility] Other Covid-19 PCR (CVDTBH)on 12-18 SARS-CoV-2 (COVID-19) RNA JANY+probe Ql (Unsp spec) Not detected Normal NOT DETECTED [facility] Comment on above: Result Comment: This test is not yet approved or cleared by the [place] FDA. When there are no FDA-approved or cleared tests available, and other criteria are met, FDA can make tests available under an emergency access mechanism called an Emergency Use Authorization (EUA). The EUA for this test is supported by the Bin Piler of Health and Human Service's (HHS's) declaration that circumstances exist to justify the emergency use of in vitro diagnostics for the detection and/or diagnosis of the virus that causes COVID-19. This EUA will remain in effect (meaning this test can be used) for the duration of the COVID-19 declaration justifying emergency of IVDs, unless it is terminated or revoked by FDA (after which the test may no longer be used). When diagnostic testing is negative, the possibility of a false negative should be considered in the context of a patient's recent exposures and the presence of clinical signs and symptoms consistent with SARS-CoV-2. Performed By: #### C VDTBH #### [facility] [address] [place], [place] [address] Dr. Rafa Johnson Covid-19 PCR (CVDTBH)on 11-16 SARS-CoV-2 (COVID-19) RNA JANY+probe Ql (Unsp spec) Not detected Normal NOT DETECTED [facility] Comment on above: Result Comment: This test is not yet approved or cleared by the [place] FDA. When there are no FDA-approved or cleared tests available, and other criteria are met, FDA can make tests available under an emergency access mechanism called an Emergency Use Authorization (EUA). The EUA for this test is supported by the [place] of Health and Human Service's (HHS's) declaration that circumstances exist to justify the emergency use of in vitro diagnostics for the detection and/or diagnosis of the virus that causes COVID-19. This EUA will remain in effect (meaning this test can be used) for the duration of the COVID-19 declaration justifying emergency of IVDs, unless it is terminated or revoked by FDA (after which the test may no longer be used). When diagnostic testing is negative, the possibility of a false negative should be considered in the context of a patient's recent exposures and the presence of clinical signs and symptoms consistent with SARS-CoV-2. Performed By: #### C [facility] #### [facility] [address] [place] [address] Nagi Crabtree Vital Signs Date Time Vital Sign Value Performing Clinician Facility 09-20-2022 15:20-0400 Body height 161.29 cm Jaye Dudley Other [facility] Other 09-20-2022 15:20-0400 Body mass index (BMI) [Ratio] 20.29 kg/m2 Jaye Dudley Other [facility] Other 09-20-2022 15:20-0400 Body temperature 98.3 [degF] Jaye Dudley Other [facility] Other 09-20-2022 15:20-0400 Body weight 52.8 kg Jaye Dudley Other [facility] Other 09-20-2022 15:20-0400 Respiratory rate 18 /min Jaye Dudley Other [facility] Other 09-20-2022 15:20-0400 SaO2% (BldA) [Mass fraction] 97 % Jaye Dudley Other [facility] Other 07-09-2022 14:50-0400 Body height 162.56 cm Rosa Victoria Other [facility] Other 07-09-2022 14:50-0400 Body mass index (BMI) [Ratio] 20.12 kg/m2 Rosa Victoria Other [facility] Other 07-09-2022 14:50-0400 Body temperature 100.6 [degF] Rosa Victoria Other [facility] Other 07-09-2022 14:50-0400 Body weight 53.16 kg Rosa Victoria Other [facility] Other 07-09-2022 14:50-0400 Diastolic blood pressure 69 mm[Hg] Rosa Victoria Other [facility] Other 07-09-2022 14:50-0400 Respiratory rate 18 /min Rosa Victoria Other [facility] Other 07-09-2022 14:50-0400 SaO2% (BldA) [Mass fraction] 98 % Rosa Victoria Other [facility] Other 07-09-2022 14:50-0400 Systolic blood pressure 115 mm[Hg] Rosa Victoria Other [facility] Other 02-09-2022 08:30-0400 Body temperature 98.2 [degF] PHYSICIAN NO FAMILY [facility] 02-09-2022 08:30-0400 Diastolic blood pressure 70 mm[Hg] PHYSICIAN NO [facility] 02-09-2022 08:30-0400 Heart rate 69 /min PHYSICIAN NO [facility] 02-09-2022 08:30-0400 Respiratory rate 18 /min PHYSICIAN NO [facility] 02-09-2022 08:30-0400 SaO2% (BldA) [Mass fraction] 97 % PHYSICIAN NO [facility] 02-09-2022 08:30-0400 Systolic blood pressure 109 mm[Hg] PHYSICIAN NO [facility] 02-08-2022 05:50-0400 Body height 162.56 cm PHYSICIAN NO [facility] 02-08-2022 05:50-0400 Body weight 60.78 kg PHYSICIAN NO [facility] 01-28-2022 13:20-0400 Respiratory rate 16 /min PHYSICIAN NO [facility] 01-28-2022 13:13-0400 Body temperature 97.9 [degF] PHYSICIAN NO [facility] 01-28-2022 13:03-0400 Diastolic blood pressure 61 mm[Hg] PHYSICIAN NO [facility] 01-28-2022 13:03-0400 Heart rate 64 /min PHYSICIAN NO [facility] 01-28-2022 13:03-0400 Systolic blood pressure 102 mm[Hg] PHYSICIAN NO [facility] 01-28-2022 10:51-0400 Body height 162.56 cm PHYSICIAN NO [facility] 01-28-2022 10:51-0400 Body weight 59.87 kg PHYSICIAN NO [facility] 03-06-2021 14:05-0500 Body height 162.56 cm Jaye Dudley Other [facility] Other 03-06-2021 14:05-0500 Body mass index (BMI) [Ratio] 20.94 kg/m2 Jaye Dudley Other [facility] Other 03-06-2021 14:05-0500 Body temperature 97.4 [degF] Jaye Dudley Other [facility] Other 03-06-2021 14:05-0500 Body weight 55.34 kg Jaye Dudley Other [facility] Other 03-06-2021 14:05-0500 Respiratory rate 18 /min Jaey Dudley Other [facility] Other 03-06-2021 14:05-0500 SaO2% (BldA) [Mass fraction] 97 % Jaye Dudley Other [facility] Other Encounters Encounter Date Encounter Type Care Provider Facility Start: 05-19-2023 End: 05-19-2023 ambulatory MANAN MATTHEWS Not Available Start: 05-18-2023 End: 05-18-2023 ambulatory SAMEER ORTIZ Facility:[facility] Start: 05-17-2023 End: 05-17-2023 ambulatory MANAN MATTHEWS Not Available Start: 05-17-2023 End: 05-17-2023 ambulatory MANAN MATTHEWS Not Available Start: 05-17-2023 External Result Encounter Manan Matthews MD Work Phone: [facility] External [facility] Unsolicited Start: 05-17-2023 External Result Encounter Manan Matthews MD Work Phone: [facility] External Department Unsolicited Start: 05-12-2023 ambulatory Ron Chaudhari Facility :[facility] Tonie Start: 04-04-2023 End: 04-04-2023 ambulatory MANAN MATTHEWS Not Available Start: 03-21-2023 End: 03-21-2023 ambulatory MANAN MATTHEWS Not Available Start: 02-08-2023 End: 02-09-2023 ambulatory Ron Chaudhari Facility:[facility] D [facility] Start: 11-09-2022 End: 11-10-2022 ambulatory Ron Chaudhari Facility:[facility] Start: 09-20-2022 End: 09-20-2022 ambulatory Jaye Octavia Other [facility] Other Start: 09-20-2022 Office outpatient visit 15 minutes Jaye Octavia [facility] Start: 09-14-2022 End: 09-15-2022 ambulatory Ron Chaudhari Facility:[facility] Start: 08-16-2022 End: 08-17-2022 ambulatory Ron Chaudhari Facility:[facility] Start: 08-13-2022 ambulatory Ron Chaudhari Facility:[facility] Start: 08-02-2022 End: 08-03-2022 ambulatory Ron Chaudhari Facility:[facility] Start: 07-09-2022 End: 07-09-2022 ambulatory Rosa Victoria Other [facility] Other Start: 07-09-2022 Office outpatient visit 25 minutes Rosa Victoria [facility] Start: 02-12-2022 End: 02-12-2022 ambulatory Sameer Ortiz Facility:[facility] Start: 02-12-2022 End: 02-12-2022 ambulatory PHYSICIAN NO [facility] Work Phone: Start: 02-12-2022 End: 02-12-2022 Patient encounter procedure PHYSICIAN NO [facility]- Visit Start: 02-08-2022 End: 02-09-2022 Evaluation and management of inpatient Sameer Ortiz Facility:[facility] Start: 02-08-2022 End: 02-09-2022 Evaluation and management of inpatient PHYSICIAN NO [facility]-[address] Start: 01-28-2022 End: 01-28-2022 ambulatory Sameer Ortiz Facility:[facility] Start: 01-28-2022 End: 01-28-2022 Patient encounter procedure PHYSICIAN NO [facility]-3 East 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 - O/P Start: 01-14-2022 End: 01-14-2022 ambulatory PHYSICIAN NO FAMILY Facility:[facility] Start: 01-14-2022 End: 01-14-2022 ambulatory PHYSICIAN NO FAMILY [facility] Work Phone: Start: 01-14-2022 End: 01-14-2022 Departed Referred PHYSICIAN NO FAMILY [facility] [place] Start: 12-23-2021 End: 12-23-2021 ambulatory PHYSICIAN NO FAMILY Facility:[facility] Start: 12-23-2021 End: 12-23-2021 Departed Referred MD Manan Matthews Work Phone: [facility] [place] Start: 09-03-2021 End: 09-03-[address] SAMEER ORTIZ Facility:[facility] Start: 08-21-2021 End: 08-21-2021 ambulatory Sameer Ortiz Facility:[facility] Start: 07-23-2021 End: 07-24-[address] SAMEER ORTIZ Facility:[facility] Start: 07-21-2021 End: 07-21-2021 ambulatory Sameer Ortiz Facility:[facility] Start: 04-06-2021 End: 04-06-[address] SAMEER ORTIZ Facility:[facility] Start: 03-06-2021 (URG) Urgent Care Visit Jaye Dudley [facility] Start: 03-06-2021 End: 03-06-2021 ambulatory Jaye Dudley Other [facility] Other Start: 01-13-2021 End: 01-13-[address] SAMEER ORTIZ Facility:[facility] Start: 12-03-2020 End: 12-04-[address] DOCTOR OLSEN Facility:[facility] Start: 11-05-2020 End: 11-06-[address] SAMEER ORTIZ Facility:[facility] Start: 10-02-2020 End: 10-02-2020 Patient encounter procedure Sameer Ortiz Work Phone: [facility] Procedures Date Procedure Procedure Detail Performing Clinician Start: 05-17-2023 QHERIT(TM) EXPANDED CARRIER SCREEN Manan Matthews MD Work Phone: Start: 10-02-2020 Plain X-ray of left wrist Sameer Ortiz Work Phone: SARS Antigen (LFIA) PHYSICIA N NO FAMILY Streptococcus agalac tiae culture PHYSICIAN NO FAMILY Urine culture PHYSICIAN NO F AMILY Plan of Treatment Date Care Activity Detail Author Start: 06-09-2023 End: 06-09-2023 ambulatory 06/09/2023 2:45 PM EST Initial [facility] [address] [place] [address] Manan Matthews MD [address] [place] [address] [facility] Start: 02-09-2022 [facility] Start: 02-08-2022 Hospital admission [facility] Start: 01-28-2022 [facility] Start: 01-28-2022 Hospital admission [facility] Group B Streptococcu s Culture Group B Streptococcus Culture [facility] Patient Education [facility] Work Phone: Patient referral [facility] Work Phone: Streptococcus agalac tiae [Presence] in Unspecified specimen by Organism specific culture [facility] Work Phone: Urine culture Urine Culture [facility] Immunizations Immunization Date Immunization Notes Care Provider Fa cility 02-09-2022 tetanus toxoid, redu stone diphtheria toxoid, and acellular pertussis vaccine, adsorbed PHYSICIAN NO [facility] 09-25-2017 tetanus toxoid, redu stone diphtheria toxoid, and acellular pertussis vaccine, adsorbed Sameer Ortiz Work Phone: [facility] Payers Date Payer Category Payer Medicaid [id number] 2022 Medicaid [place] [id number] 2022-Present [address] [place] [address] [id number] 2021 Self-pay [id number] 1999 Unknown [id number] 2.16.840.1.624908.3.579.2.5 1999 Unknown [id number] 2.16.840.1.035399.3.579.2.5 93 1999 Unknown [id number] 2.16.840.1.176783.3.579.2.5 93 1999 Unknown [id number] 2.16.840.1.579700.3.579.2.5 93 1999 Unknown [id number] 2.16.840.1.395183.3.579.2.5 1999 Unknown [id number] 2.16.840.1.428049.3.579.2.5 93 1999 Unknown [id number] 2.16.840.1.881814.3.579.2.7 27 1999 Unknown [id number] 2.16.840.1.285436.3.579.2.7 27 1999 Unknown [id number] 2.16.840.1.513175.3.579.2.7 1999 Unknown [id number] 2.16.840.1.942905.3.579.2.7 27 1999 Unknown [id number] 2.16.840.1.316399.3.579.2.7 27 1999 Unknown [id number] 2.16.840.1.473637.3.579.2.7 27 1999 Unknown [id number] 2.16.840.1.829772.3.579.2.1 259 1999 Unknown [id number] 2.16.840.1.343125.3.579.2.1 259 1999 Unknown [id number] 2.16.840.1.278618.3.579.2.1 259 1999 Unknown [id number] 2.16.840.1.163143.3.579.2.1 259 1999 Unknown [id number] 2.16.840.1.699768.3.579.2.1 259 1999 Unknown [id number] 2.16.840.1.206009.3.579.2.1 259 1999 Unknown [id number] 2.16.840.1.876099.3.579.2.1 259 1959 Unknown [id number] 1959 Unknown [id number] Private Health Insurance [facility] [id number] Unknown [id number] Unknown [id number] 2.16.840.1.245399.3.579.2.5 31 Unknown [id number] 2.16.840.1.240236.3.579.2.5 31 Unknown [id number] 2.16.840.1.490548.3.579.2.5 31 Unknown [id number] 2.16.840.1.799501.3.579.2.5 31 Unknown [id number] 2.16.840.1.507915.3.579.2.5 31 Unknown [id number] 2.16.840.1.190848.3.579.2.5 31 Unknown [id number] 2.16.840.1.565903.3.579.2.5 31 Social History Date Type Detail Facility Start: 09-23-2017 Tobacco smoking stat [facility] Unknown if ever smoked [facility] Start: 2000 Sex Assigned At Female [facility] Start: 03-21-2023 End: 04-04-2023 Sex Assigned At [facility] [employer] Other Start: 02-08-2022 End: 03-21-2023 Tobacco smoking status NHIS Never smoked tobacco (finding) [facility] Start: 03-21-2023 Tobacco use and exposure Smokeless tobacco non-user [facility] Start: 05-17-2023 Alcohol intake Ex-drinker (finding) [facility] Start: 03-21-2023 End: 04-04-2023 History of Social function [facility] How often to you hav e a drink containing alcohol? Never [facility] How many standard drinks containing alcohol do you have on a typical day? Patient does not drink [facility] Start: 03-21-2023 Alcohol Comment caffeine intak e: 1 can soda/per day [facility] Start: 04-11-2023 [facility] Start: 2000 Sex Assigned At Not on file [facility] Goals Date Patient Goal Desired Activity /State Functional Status Date Assessment Result Facility 02-09-2022 Functional status Patient at Baseline [facility] Work Phone: Mental Status Date Assessment Result Facility 02-09-2022 Cognitive function Cognitive Sta tus Patient at Baseline [facility] Work Phone: Clinical Notes 11-05-2020 to 05-18-2023 Note Date & Type Note Facility 05-18-2023 Note HNO ID: [id number] Author: JOSE WESTFALL MD Service: ? Author Type: Physician Type: Progress Notes Filed: 05/18/2023 15:53 Note Text: Patient here for ultrasound. See ultrasound report for details. Eng intrauterine consistent with clinical gestational age. Embryonic heart motion is seen on real-time exam. Suggest nuchal translucency evaluation in 6 weeks if desired. Jose Westfall MD [facility] 09-20-2022 Evaluation note Encounter Date Diagnosis Assessment Notes Sep, Sore throat (ICD-10 - J02.9) Sep, Acute pharyngitis due to other specified organisms (ICD-10 - J02.8) Pharyngitis/to nsillopharyngi tis: adult home care material was printed Drink plenty fluids, get plenty of rest. Take the amoxicillin and prednisone as prescribed until gone. Take Tylenol or Motrin as needed for aches pains or fevers. Off work tomorrow. Follow-up with your family physician if no improvement in 2 to 3 days. Sep, Other specified bacterial agents as the cause of diseases classified elsewhere (ICD-10 - B96.89) [employer] Other 03-24-2023 Evaluation note* Encounter Date Diagnosis Assessment Notes Treatment Notes Treatment Clinical Notes Jun, Sore throat (ICD-10 - J02.9) Jun, Viral URI with cough (ICD-10 - J06.9) Advised patient that COVID/Influenza A/B test and rapid Strep test was negative today. Advised patient that will treat as viral URI. Supportive care as directed, increase fluids and rest, Tylenol/Motrin as directed, OTC cough/cold remedies as directed on packaging, cool mist humidifier, throat lozenges. Discussed infection control practices such as good hand washing and mask wearing. Patient to follow up with PCP if symptoms persist or worsen despite treatment. Immediate eval for SOB, difficulty breathing, chest pain, fevers that do not break with antipyretic or any other concerning symptoms as reviewed on patient education handout. Patient verbalizes understanding and is agreeable to treatment plan. Patient left in stable condition. 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 She is ambulating and urinating without difficulty. She has not had a bowel movement since delivery. Pain/cramping is tolerable. Patient reports minimal vaginal bleeding. Patient denies lightheadedness, dizziness, chest pain, shortness of breath, swelling, calf tenderness, headache, and vision changes. She is doing well and is breast feeding. Patient comments: no complaints baby status: doing well feeding status: exclusively breast feeding OB - PN: Obj Exam Physical Exam Vital signs: Vital Signs - 8 hr 02/08/22 23:49 Temperature 97.9 F Pulse Rate 73 Respiratory Rate 16 Blood Pressure 110/62 02 Sat by Pulse Oximetry 97 Narrative: General: No acute distress. Resting comfortably in bed HEENT: Conjunctiva are clear. No scleral icterus. Pupils are equal, round, andreactive to light. CV: Regular rate and rhythm. No murmurs or gallops. Respiratory: Breathing comfortably on room air. Clear to auscultation bilaterally. No wheezes, rhonchi, or rales. Abdominal: Soft, nondistended, and nontender. Normoactive bowel sounds. Fundusis firm below the umbilicus. Extremities: No swelling, cyanosis, or clubbing. Peripheral pulses intact. No calf tenderness. Skin: No rashes or lesions Neuro: Cranial nerves II through XII intact. Sensation grossly intact. Motor function grossly intact. Psych: Good eye contact. Appropriate mood and affect. Speech is clear. OB - PN: Obj Data Labs CBC & Chem 7: 02/09/22 07:47 Labs: 02/08/22 06:07: RPR w/Rflx to Titer Non reactive 02/08/22 05:52: Ur Renal Epithelial Cell None seen Microbiology Micro Results: Microbiology 02/08/22 05:52 Nasal SARS Antigen (LFIA) - Final Assessment/Plan Assessment (1) Status post vaginal delivery: Status: Acute Plan Ms Gayle is a 21 year old G 2 P 1 female 1 s/p vaginal delivery at 39 weeks and0 days, complicated by first-degree perineal laceration repaired with 3-0 Vicrylsuture. Appropriate hemostasis was achieved. #1 routine care Blues: Patient reports appropriate mood Breast: No breast complaints. Is formula feeding Belly: Abdominal pain is controlled. Fundus is appropriately sized. Bottom: Pain is controlled. Continue ibuprofen and Tylenol. Bladder: Urinating appropriately. Baby: Baby is doing well. Is formula feeding Bowels: Has not had a BM. Encourage ambulation and hydration. Continue Colace. Bleeding: Lochia appropriate. Predelivery Hbg 13.6. EBL 200 mL. Post delivery Hbg 11.5. Asymptomatic Plan day: 1 Vaginal delivery plan (if applicable): routine care, discharge home and follow up 6 weeks Documented By: Ralph Johnson DO, RES 02/09/22 0 653 Signed By: <Electronically signed by DO JUSTO Johnson> 02/09/22 0922 <Electronically signed by Jm Gamboa DO> 02/09/22 1057 [facility] Work Phone: [phone] [facility]* Encounter Date Diagnosis Assessment Notes Treatment Notes Treatment Clinical Notes Feb, Sore throat (ICD-10 - J02.9) Feb, Strep pharyngitis (ICD-10 - J02.0) Feb, Contact with and (suspected) exposure to other viral communicable diseases (ICD-10 - Z20.828) Feb, Other Additional time spent conducting pre-visit phone call, screening for symptoms, instructions on social distancing, application and removal of PPE, and cleaning of examination room, equipment and supplies was preformed. Patient education given for testing methodology and results. Patient care instructions given in writting by [facility] document. [employer] Other 07-21-2021 NotePROCEDURE: XR WRIST LT MIN 3 V COMPARISON: None. HISTORY: Pain of left wrist FINDINGS: BONES:Focal sclerosis of the distal lunate. No dislocation. SOFT TISSUES:Negative. No visible soft tissue swelling. EFFUSION:None visible. OTHER: Negative. IMPRESSION: Focal sclerosis of the distal lunate, indeterminate. In light of patient's trauma this could represent a subacute or chronic fracture Electronically authenticated by: OPAL CHRISTOPHER Date: 2020-11-05 13:47[facility] noteNo assessment information availableUniversity [facility]als [facility] CenterEvaluation note* Diagnosis Onset Date Resolution Status Status post vaginal delivery acute [facility] Work Phone: History general Narrative - Reported* Type Description Date Medical History Depression, unspecified depressi on type Medical History Anxiety Medical History bipolar Surgical History appendectomy Hospitalization History see above [employer] Other History general Narrative - Reported* Type Description Date Medical History Depression, unspecified depressi on type Medical History Anxiety Medical History bipolar Surgical History appendectomy Hospitalization History see above Hospitalization History child births x 2 [employer] Other Advance Directives Advance Directive Response Recorded Date/ Time Advance Directives No August 25 10:48am Summary Purpose Family History Relationship Condition Age at Onset Recorded Date/T dani father Hypertension Unknown Myocardial infarction Unknown Chief Complaint and Reason for Visit Chief Complaint 32 weeks gestation o f ;Pelvic pressure in Chief Complaint Z3A.32 R10.2 M54.50 Chief Complaint Z3A.32 R10.2 M54.50 Z3A.35 Z36.85 nst contractions Reason for Visit Status post vaginal delivery Chief Complaint Z3A.32 R10.2 M54.50 Z3A.35 Z36.85 nst contractions z39.1 Reason for Visit Status post vaginal delivery Additional Source Comments Goals (unrecognized section and content) Goals may be documented in a n alternate sectionNo InformationGoals may be documented in an alternate sectionGoals may be documented in an alternate sectionNo InformationNo Information INFORMATION SOURCE (unrecogn ized section and content) DATE CREATED AUTHOR 09/07/2021 [facility] DATE CREATED AUTHOR AUTHOR'S ORGANIZ ATION 02/27/2022 [facility] DATE CREATED AUTHOR AUTHOR'S ORGANIZ ATION 03/30/2023 [facility] DATE CREATED AUTHOR AUTHOR'S ORGANIZ ATION 05/19/2023 [facility] DATE CREATED AUTHOR AUTHOR'S ORGANIZ ATION 05/20/2023 [facility] dical Specialists EPIC REASON FOR VISIT (unrecogniz ed section and content) #18 IYER GMC, BODYACHE, SORE THROAT, H/A, NAUSEA X 3 DAYSHEADACHE, SORE THROAT, DIZZINESS, BODY ACHESSORE THROAT, COUGH, MUCUS Care Teams (unrecognized sec tion and content) Team Status: Inactive Member Role Status Dates Manan Matthews MD Attending Provider Active Team Status: Inactive Member Role Status Dates Manan Matthews MD Attending Provider Active PHYSICIAN NO FAMILY Primary Care Provider Active Team Status: Inactive Member Role Status Dates PHYSICIAN NO FAMILY Primary Care Provider Active Manan Matthews MD Attending Provider Active Team Status: Active Member Role Status Dates PHYSICIAN NO FAMILY Primary Care Provider Active Team Status: Inactive Member Role Status Dates Sameer Ortiz MD Primary Care Provider Active Ivonne Richardson DO Admit Provider, Attending Provide r Active Team Status: Inactive Member Role Status Dates Sameer Ortiz MD Primary Care Provider Active Manan Matthews MD Attending Provider Active Team Status: Active Member Role Status Dates Sameer Ortiz MD Primary Care Provider Active Team Status: Inactive Member Role Status Dates Sameer Ortiz MD Primary Care Provider Active Nikki Horvath MD Attending Provider Active 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 This clinical summary was aggregated from multiple sources. Caution should be exercised in using it in the provision of clinical care. This summary normalizes information from multiple sources, and as a consequence, information in this document may materially change the coding, format and clinical context of patient data. In addition, data may be omitted in some cases. CLINICAL DECISIONS SHOULD BE BASED ON THE PRIMARY CLINICAL RECORDS. [facility] [employer] provides no warranty or guarantee of the accuracy or completeness of information in this document.
--- NOTE | 2023-05-30 10:56 | ED_ITS ---
HPI - General Chief complaint: Nausea/Vomiting/Diarrhea Stated complaint: NAUSEA AND VOMITING Time Seen by Provider: 05/30/23 10:46 Source: patient Mode of arrival: walk-in Limitations: no limitations History of Present Illness HPI Narrative: 22-year-old female who is 4 para 3 presents for nausea and vomiting. She is currently 9 weeks . No vaginal bleeding. She has had issues like this in previous pregnancies and has not had fever or hematemesis or vaginal bleeding. Related Data Home Medications Medication Instructions Recorded Confirmed vits no.130-ferrous fum 1 tab PO DAILY 03/28/23 05/30/23 27 mg iron-folic acid 800 mcg tablet ( Vitamin) ondansetron HCl 4 mg tablet 4 mg PO Q8H 05/30/23 05/30/23 Previous Rx's Medication Instructions Recorded ondansetron 4 mg disintegrating 4 mg PO Q6H PRN nausea and 05/30/23 tablet vomiting #20 tabs Allergies Allergy/AdvReac Type Severity Reaction Status Date / Time No Known Drug Allergies Allergy Verified 12/24/22 01:23 Review of Systems ROS Narrative A ten point review of systems is negative except as noted above. PFSH PFSH Social History Smoking status: Never smoker Exam Narrative Exam Narrative: Nurses note and vital signs reviewed and patient is not hypoxic. General: The patient appears well and in no apparent distress. Patient is resting comfortably on cart. Skin: Warm, dry, pallor noted. There is no rash noted. Head: Normocephalic, atraumatic Eye: Normal conjunctiva, no drainage Ears, Nose, Mouth, and Throat: oral mucosa is moist. Nares patent. Cardiovascular: Regular Rate and Rhythm Respiratory: Patient is in no distress, no accessory muscle use, lungs are clear to auscultation, no wheezing, rales or rhonchi Back: non-tender GI: Soft and nontender Musculoskeletal: The patient has no evidence of calf tenderness, no pitting edema, symmetrical pulses noted bilaterally Neurological: A&O, normal speech Psychiatric: Cooperative Constitutional Vital Signs, click to edit/add: Last Vital Signs Temp 98.1 F 05/30/23 10:28 Pulse 83 05/30/23 10:28 Resp 16 05/30/23 10:28 BP 127/70 05/30/23 10:28 Pulse Ox 99 05/30/23 10:28 O2 Del Method Room Air 05/30/23 10:28 Course Vital Signs Vital signs: Vital Signs Temperature 98.1 F 05/30/23 10:28 Pulse Rate 83 05/30/23 10:28 Respiratory Rate 16 05/30/23 10:28 Blood Pressure 127/70 05/30/23 10:28 Pulse Oximetry 99 05/30/23 10:28 Oxygen Delivery Method Room Air 05/30/23 10:28 Temperature 98.1 F 05/30/23 10:28 Pulse Rate 83 05/30/23 10:28 Respiratory Rate 16 05/30/23 10:28 Blood Pressure 127/70 05/30/23 10:28 Pulse Oximetry 99 05/30/23 10:28 Oxygen Delivery Method Room Air 05/30/23 10:28 MDM - OB/Uterine Contractions MDM Narrative Medical decision making narrative: Blood work nonspecific. She was given IV fluids and Zofran and is able to be discharged home with a prescription for Zofran. Treatment diagnosis and follow- up were discussed with the patient Differential Diagnosis Differential diagnosis: Likely other (Nausea and vomiting in , dehydration) Lab Data Attestation: I reviewed the patient's lab results. Labs: Lab Results 05/30/23 Range/Units 10:55 WBC 11.2 H (4.0-11.0) 10^3/uL RBC 4.58 (4.20-5.40) 10^6/uL Hgb 13.8 (12.0-16.0) g/dL Hct 41.5 (36.0-48.0) % MCV 90.6 (81.0-99.0) fL MCH 30.1 (26.7-34.0) pg MCHC 33.3 (29.9-35.2) g/dL RDW 13.2 (11.0-15.0) % Plt Count 232 (150-450) 10^3/uL MPV 9.5 (9.5-13.5) fL Neut % (Auto) 79.9 H (43.0-75.0) % Lymph % (Auto) 14.7 L (20.5-60.0) % [place] % (Auto) 4.6 (1.7-12.0) % Eos % (Auto) 0.1 L (0.9-7.0) % Baso % (Auto) 0.4 (0.2-2.0) % Neut # (Auto) 9.0 H (1.4-6.5) 10^3/uL Lymph # (Auto) 1.6 (1.2-3.8) 10^3/uL [place] # (Auto) 0.5 (0.3-0.8) 10^3/uL Eos # (Auto) 0.0 (0.0-0.7) 10^3/uL Baso # (Auto) 0.0 (0.0-0.1) 10^3/uL Abs Immat Gran (auto) 0.03 (0.00-0.03) 10^3/uL Imm/Tot Granulo (auto) 0.3 (0.0-0.5) % Sodium 139 (136-145) mmol/L Potassium 3.9 (3.5-5.1) mmol/L Chloride 103 (98-107) mmol/L Carbon Dioxide 25.5 (21.0-32.0) mmol/L Anion Gap 14.4 BUN 10.0 (7.0-18.0) mg/dL Creatinine 0.56 (0.55-1.02) mg/dL Est GFR ( Amer) >60 (>=60) Est GFR (Non-Af Amer) >60 (>=60) BUN/Creatinine Ratio 17.9 Glucose 81 (74-106) mg/dL Calcium 9.0 (8.5-10.1) mg/dL Discharge Plan Discharge Chief Complaint: Nausea/Vomiting/Diarrhea Clinical Impression: Nausea and vomiting during Patient Disposition: Home, Self-Care Time of Disposition Decision: 11:41 Condition: Good Mode of Transportation: Private Vehicle Prescriptions / Home Meds: New ondansetron 4 mg tablet,disintegrating 4 mg PO Q6H PRN (Reason: nausea and vomiting) Qty: 20 0RF No Action Vitamin 27 mg iron- 800 mcg tablet 1 tab PO DAILY ondansetron HCl 4 mg tablet 4 mg PO Q8H Instructions: Nausea and Vomiting in (ED) Stand Alone Forms: Portal Instructions Referrals: JOSÉ MANUEL CHEUNG [Primary Care Provider] - 1 week
[2023-05-30] MEDS: 0.9 % SODIUM CHLORIDE 1,000 ML 1000 ML IV (11:04)
[2023-05-30] MEDS: ONDANSETRON PF 4 MG/2 ML VIAL IV (11:05)
[2023-05-30 11:08] LABS: Basophils Percent Auto 0.4 % (0.2-2.0); Eosinophils Percent Auto 0.1 % (0.9-7.0); Hematocrit 41.5 % (36.0-48.0); Hemoglobin 13.8 g/dL (12.0-16.0); Immature Granulocytes Abs Auto 0.03 10^3/uL (0.00-0.03); Immature Granulocytes Pct Auto 0.3 % (0.0-0.5); Lymphocytes Absolute Auto 1.6 10^3/uL (1.2-3.8); Lymphocytes Percent Auto 14.7 % (20.5-60.0); Mean Corpuscular HGB Conc 33.3 g/dL (29.9-35.2); Mean Corpuscular Hemoglobin 30.1 pg (26.7-34.0); Mean Corpuscular Volume 90.6 fL (81.0-99.0); Mean Platelet Volume 9.5 fL (9.5-13.5); Monocytes Absolute Auto 0.5 10^3/uL (0.3-0.8); Monocytes Percent Auto 4.6 % (1.7-12.0); Neutrophils Percent Auto 79.9 % (43.0-75.0); Platelet Count 232 10^3/uL (150-450); Red Blood Count 4.58 10^6/uL (4.20-5.40); Red Cell Distribution Width 13.2 % (11.0-15.0); White Blood Count 11.2 10^3/uL (4.0-11.0)
[2023-05-30 11:19] LABS: Anion Gap 14.4; BUN Creatinine Ratio 17.9; Carbon Dioxide 25.5 mmol/L (21.0-32.0); Chloride 103 mmol/L (98-107); Estimated GFR (African America >60 (>=60); Estimated GFR (Non-African Ame >60 (>=60); Glucose 81 mg/dL (74-106); Potassium 3.9 mmol/L (3.5-5.1); Sodium 139 mmol/L (136-145)
[2023-05-30 11:47] VITALS: BP 122/78; PULSE 88; RESP 18; O2SAT 98
== END 2023-05-30 11:48 | disposition home or self-care (01) ==
PROVIDERS: Emergency Provider Emergency Medicine; PCP Family Medicine
DX: O26.891 Other specified pregnancy related conditions, first trimester (principal); R11.2 Nausea with vomiting, unspecified; Z3A.09 9 weeks gestation of pregnancy; Z79.899 Other long term (current) drug therapy
CPT/HCPCS: 36415; 80048; 85025; 96374; 99284; J2405

== ENCOUNTER 2023-06-12 17:34 | Emergency (ER) | payer MEDICAID, SELFPAY ==
[2023-06-12 17:39] VITALS: BP 117/76; PULSE 104; RESP 18; TEMP 36.9; O2SAT 98; BMI 21.0
--- OUTSIDE RECORDS SUMMARY | 2023-06-12 17:41 | XMS_ITS | CCD ---
Author Name Unknown Address [address] [place] [address] Organization [facility] Care Team Providers Care Cementer Machine Joiner Name Role Phone Sameer Ortiz Primary Care Provider Sarah Fierro Attending Provider [phone] DIANA, DR SAMEER Juarez Consulting Unavailable ORTIZ, DR [...] ORTIZ, DR SAMEER Juarez Primary Care Unavailable DUSHORE, DR OPAL Hinton Consulting Unavailable ORTIZ, DR SAMEER Juarez Primary Care Unavailable ALE CHAMPION Attending Unavailable ALE CHAMPION Admitting Unavailable ALE CHAMPION Consulting Unavailable DIANA, DR SAMEER Juarez Primary Care Unavailable GEREMIAS OBANDO Attending Unavailable GEREMIAS OBANDO Admitting Unavailable DEVORA WHEAT Consulting Unavailable ORTIZ, DR SAMEER Juarez Consulting Unavailable ORTIZ, DR SAMEER Juarez Attending Unavailable ORTIZ, DR SAMEER Juarez Admitting Unavailable DIAAN, DR SAMEER Juarez Primary Care Unavailable Jaye Dudley Unavailable MD Manan Matthews Attending Provider NO FAMILY, PHYSICIAN Primary Care Provider Unava ilMD Sameer Guallpa Primary Care Provider DO Ivonne Richardson Admit Provider DO Ivonne Richardson Attending Provider [phone] MD Alexandru [facility] Attending Provider Sameer Ortiz Primary Care Unavailable Dylan Ivonne Admitting Unavailable Domi Richardsoneen Attending Unavailable Sameer Ortiz Primary Care Unavailable Matthews, Penola P Attending [...] Penola P Attending Unavailable Rosa Victoria Unavailable SAMEER ORTIZ Primary Care Unavailable PROVIDER, DECORATIVE CUTTING MACHINE TENDER TRANSCRIBE Referring Unav ailable MATTHEWS, PENLIZBET P Attending Unavailable MATTHEWS, PENOLA P Attending Unavailable CASSIE, PENOLA P Attending Unavailable CASSIE, PENOLA P Referring Unavailable EVANS MATTHEWSOLA P Attending Unavailable Ron Chaudhari MD Primary Care Provider [phone] MD Ron Chaudhari Attending Unavailable MD Ron Chaudhari Attending Unavailable MD Ron Chaudhari Attending Unavailable MD Ron Chaudhari Attending Unavailable MD Ron Chaudhari Attending Unavailable MD Ron Chaudhari Attending Unavailable Allergies Allergy Classification Reported Allergen(s) Allergy Type [...] Start: 03-06-2021 take 1 capsule by mo [facility] every eight hours Amoxicillin 500 MG [...] Orally bid for 5 day(s) Sep, Active Khmkcufr-Kpc-Bt-Fa (2 sources) Start: 01-28-2022 take 1 tablet by mouth once daily Uuavfkik-Igs-Oc-Fa Active 1 TAB PO Daily January 28, 2022 12:00am Completed/Discontinued Medications Medication Drug Class(es) Dates Sig (Normalized) Sig (Original) acetaminophen 500 mg oral tablet (2 sources) take 2 tablets by mouth every six hours as needed Acetaminophen 500 MG 2 tablet as needed Orally every 6 hrs Not-Taking dextromethorphan hydrobromide 30 mg / pyrilamine maleate 30 mg oral tablet (1 source) Uncompetitive J-grffuj-B-asparta te Receptor Antagonist, Sigma-1 Agonist Start: 12-03-2020 take 1 tablet by mouth every eight hours [place] DMT 30-30 MG 1 tablet Orally every [...] past delivery; Translations: [Status post vaginal delivery] 09-24-2017 Episodic Other upper respiratory infections (6 sources) [...] Test Name Value Interpretation Reference Range Facility ED Note-Physicianon 06-03-19 ED Note-Physician [id number] .[id number] Normal [facility] QHERIT(TM) EXPANDED CARRIER SCREENon 05-28-2023 2+0 RISK VARIANT Not [facility] CGG repeats [facility] (Bld/Tiss) SEE NOTE [facility] Comment on above: Fragile X: FEMALE, 29 and 31 CGG repeats in the FMR1 gene detected (NEGATIVE) Genetic variant assessment [facility] (Bld/Tiss) SEE NOTE [facility] Comment on above: DISEASES / VARIANTS TESTED DISEASE (GENE) [REFERENCE SEQUENCE] - VARIANTS ALPHA-THALASSEMIA (HBA1 and HBA2) [NM 772995.3 and NM 475282.4] -alpha3.7, -alpha4.2, -alpha20.5, --SEA, --MED, -[place], --[place], [place] (c.427T>C) BETA HEMOGLOBINOPATHIES (INCLUDING SICKLE CELL DISEASE) (HBB) [NM 063945.4] c.*111A>G, c.*110T>C, c.*96T>C, Hb D-[place] (c.364G>C), Hb O-[place] (c.364G>A), c.321 322insG, c.316-2A>C, c.316-2A>G, c.316-3C>A, c.316-106C>G, [...] c.-138C>A, c.-140C>T, c.-151C>T GRAY SYNDROME (BLM) [NM 182366.3] 1096paf1/ins7 (c.1767 2212delATCTGAinsTAGATTC) JANESSA DISEASE (ASPA) [NM 523604.2] IVS2-2A>G (c.433-2A>G), Y231* (c.693C>A), E285A (c.854A>C), A305E (c.914C>A) CYSTIC FIBROSIS (CFTR) [NM 912667.3] M1V (c.1A>G), CFTRdele2,3, Q39X (c.115C>T), 296+2T>A (c.164+2T>A), [...] (c.595C>T), P205S (c.613C>T), L206W (c.617T>G), Q220X (c.658C>T), 496nrd37 (c.779fec37), 935delA (c.803delA), 936delTA (c.805delAT), U427xkv (c.933delCTT), 1078delT (c.948delT), G330X (c.988G>T), R334W (c.1000C>T), I336K (c.1007T>A), T338I (c.1013C>T), S341P (c.1021T>C), 1154insTC (c.1022insTC), 1161delC (c.1029delC), R347P (c.1040G>C), R347H(c.1040G>A), R352Q (c.1055G>A), 1213delT (c.1081delT), 1248+1G>A (c.1116+1G>A), 1259insA (c.1127insA), 1288insTA (c.1153insAT), W401X (c.1202G>A or c.1203G>A), 1341+1G>A (c.1209+1G>A), 8837idt8 (c.1329insAGAT), A455E (c.1364C>A), 1525-1G>A (c.1393-1G>A), S466X (c.1397C>A or c.1397C>G), L467P (c.1400T>C), 1548delG (c.1418delG), G480C (c.1438G>T), S489X (c.1466C>A), S492F (c.1475C>T), 1609delCA (c.1477delCA), Q493X (c.1477C>T), P785plx (c.1519delATC), P140twm (c.1521delCTT), 1677delTA (c.1545delTA), V520F (c.1558G>T), C524X (c.1572C>A), Q525X (c.1573C>T), 1717-1G>A (c.1585-1G>A), 1717-8G>A (c.1585-8G>A), G542X (c.1624G>T), S549R (c.1645A>C or c.1647T>G), S549N (c.1646G>A), G551D (c.1652G>A), Q552X (c.1654C>T), R553X (c.1657C>T), A559T (c.1675G>A), R560K (c.1679G>A), R560T (c.1679G>C), 1811+1.6kbA>G (c.1679+1.6kbA>G), 1812-1G>A (c.1680-1G>A), P574H (c.1721C>A), D579G (c.1736A>G), E585X (c.1753G>T), 1898+1G>T (c.1766+1G>T), 1898+1G>A (c.1766+1G>A), 1898+3A>G (c.1766+3A>G), 1898+5G>T (c.1766+5G>T), 2043delG (c.1911delG), 2281niw7>A (c.8456oxl2tgsM), 6706auh48klr0 (c.4321txm09mwpBQVDX), 2108delA (c.1975delA), 2143delT (c.2011delT), 2183AA>G (c.2051delAAinsG), 2184insA (c.2052insA), 2184delA (c.2052delA), R709X (c.2125C>T), K710X (c.2128A>T), 2307insA (c.2175insA), L732X (c.2195T>G), 2347delG (c.2215delG), R764X (c.2290C>T), 2585delT (c.2453delT), E822X (c.2464G>T), 2622+1G>A (c.2490+1G>A), E831X (c.2491G>T), W846X (c.2537G>A), R851X (c.2551C>T), 2711delT (c.2583delT), 2789+5G>A (c.2657+5G>A), Q890X (c.2668C>T), 2869insG (c.2737insG), L927P (c.2780T>C), S945L (c.2834C>T), 3007delG (c.2875delG), G970R (c.2908G>C), 3120G>A (c.2988G>A), 3120+1G>A (c.2988+1G>A), 3121-1G>A (c.2989-1G>A), 3171delC (c.3039delC), 8079szm0 (c.3067delATAGTG), 3272-26A>G (c.3140-26A>G), Y3338J (c.3194T>C), N9259V (c.3196C>T), W2092V (c.3197G>A), Y3723C (c.3230T>C), O7542X (c.3266G>A), U2184T (c.3276C>A or c.3276C>G), P5256X (c.3278T>C), X1291F (c.3302T>A), B3389C (c.3310G>T), I2398N (c.3382A>T), J0600D (c.3435G>A), H5907I (c.3472C>T), X3378Z (c.3484C>T), 3659delC (c.3528delC), 7818qzq5 (c.3535delACCA), N7192V (c.3587C>G), Y5855S (c.3611G>A or c.3612G>A), 3791delC (c.3659delC), 3821delT (c.3691delT), A6502Z (c.3700A>G), A3493O (c.3712C>T), 3849+10kbC>T (c.3717+69693E>T), R2826I (c.3731G>A), 3876delA (c.3744delA), R3896H (c.3752G>A), Y5651G (c.3764C>A), 3905insT (c.3773insT), W12 (more content not included)... resident care director review Ricci (Unsp spec) [Interp] SEE NOTE [facility] Comment on above: A portion of the testing was performed at [facility]. Laboratory testing supervised and results monitored by Vicki Ambrocio, Ph.D., [facility], [facility]. METHODOLOGY Fragile X testing is performed using [...] number is detected by quantitative PCR. The g.48457N>G variant ([id number]), assessed by quantitative PCR, is reported when the SMN1 copy is equal to two. SMN2 copy number is assessed by quantitative PCR when SMN1 copy number is equal to zero or one, or when SMN1 is equal to two in the presence of the g.74687Q>G variant. All other gene variations are detected by multiplex-PCR amplification of specific gene regions, followed by nucleotide sequence analysis on a massively parallel sequencing platform. Although rare, false positive or false negative results may occur. All results should be interpreted in the context of clinical findings, relevant history, and other laboratory data. Visit [email or web address] for additional clinical information and references. Health care providers, please contact your local [facility]' genetic counselor or call [phone] ( ) for assistance with the interpretation of these results. These tests were developed and their analytical performance characteristics have been determined by [facility]. They have not been cleared or approved by the FDA. These assays have been validated pursuant to the CLIA regulations and are used for clinical purposes. Narrative diagnostic report [facility] (Bld/Tiss) [Interp] SEE NOTE [facility] Comment on above: NEGATIVE FOR ALL VARIANTS TESTED (SEE BELOW) NEGATIVE SUMMARY STATEMENT SEE NOTE [facility] Comment on above: This carrier test in [...] risks after a negative result. Race C [facility] RESIDUAL RISK TABLE SEE NOTE [facility] Comment on above: RESIDUAL CARRIER RIS K TABLE - FOR USE ONLY AFTER RESULTS ARE NEGATIVE (ASSUMES FAMILY HISTORY IS NEGATIVE) Disease Ethnicity Detection Prior Risk Rate % Risk After Negative Result Alpha- Thalassemia Mediterranean, Up to 94 Varies Reduced [facility] [place] Ethnicity , Venezuelan, Beta-Hemoglobinopathies (Including Sickle Cell Disease) Mediterranean, 99 Varies Reduced [place], by [place] , Ethnicity , Venezuelan, Gray Syndrome Ashkenazi Adventist 99 04/30,301 Janessa Disease Ashkenazi Adventist >97 <04/18,801 Non-Ashkenazi 50 Not Adventist known Cystic Fibrosis Ashkenazi Adventist 95 05/11461 Non- 90 05/12241 Togolese 88 1376 78 65 1/292 Togolese 53 94 1199 Dihydrolipoamide Dehydrogenase Deficiency [facility] >95 1 <04/19,121 Familial Dysautonomia Ashkenndi Adventist >99 05/18 <3,001 Familial Hyperinsulinism [facility] 90 Fanconi Anemia [facility] 99 04/26, Fragile X Females 99 05/12,801 Gaucher Disease Ashkenazi Adventist 95 05/02 Glycogen Storage Disease Type Ia [facility] 95 04/18,261 51 1 Dia Syndrome [facility] 04/27,601 Maple Syrup Urine Disease [facility] 95 04/18,92 Mucolipidosis Type IV [facility] 95 04/18,761 Nemaline Myopathy [facility] >95 <04/20,341 Sade-Pick Disease Types A&B [facility] 97 1 04/20,801 Jett-Sachs Disease [facility] 98 05/14 04/18, [facility] 70 05/18 General Population 46 1 1/555 Usher Syndrome, Type IF Ashkenazi Adventist >75 1/147 </585 Usher Syndrome, Type IIIA Ashkenazi Adventist >95 1/120 <2,381 Walker-Warburg Syndrome [facility] 99 04/24,801 SMA INTERPRETATION Negative [facility] Comment on above: INTERPRETATION: This analysis identified two (2) copies of the SMN1 gene. The g.22759E>G variant was not detected (NEGATIVE). The revised carrier risk for an individual with two (2) copies of the SMN1 gene and the absence of the g.61128C>G variant is dependent on ethnicity and is provided in the table below (Diana et al., 2012. PMID: 80545677; Jamison et al., 2017. PMID: 52395509). LIMITATIONS OF ANALYSIS: This negative result does [...] and ethnicity. SMA RESIDUAL RISK RISK BELOW [facility] Comment on above: Revised carrier risk for individuals with no family history of SMA Carrier Population Detection Carrier Revised Risk/ Ethnicity Rate Risk Variant Absent 95% 1:47 1:921 Ashkenazi 93% 1:67 1:918 Adventist 94% 1:59 1:907 90% 1:72 1:375 Togolese 93% 1:68 1:906 SMN1 gene targeted mutation analysis [facility] (Bld/Tiss) 2 COPIES [facility] Organization Information Site ID: EZ Name: Sera Robbins/Rupa [facility], Address: [address] [place] [address] Director: Verna Love MD,PhD,LINDA [facility] 05-18-2023 CNPN Telephone (OBGYF2) ANABELA TAYLOR ([id number]) 89 F Date Time Provider Department 05/18/23 [facility] OB MFM OBGYF2 During your visit today, we recorded the following information about you: Carla Crooks MA 05/18/2023 10:02 AM Signed Called pt, verified name and . Informed pt call was regarding referral sent in from [facility]. Pt had US done 05/17 showing a at 6w2d - possible cornual . (See [facility] notes in scanned docs). Pt offered and accepted appt at [facility] office at 3 pm today (05/18). No further questions. Carla Crooks MA Allergies As of Date: 05/18/2023 (No Known Allergies) Date Reviewed: 10/23/2015 Reviewed by: Becky Weiss - Fully Assessed Reason for Visit: Appointment [186] Problem List As Of Date 05/18/2023 Noted Resolved Chronic midline low back pain without sciatica *10/23/2015 Encounter Status:Closed by CARLA CROOKS on 05/18/23 Normal [facility] Ambulatory Visit Summaryon 0 05-12-2023 Ambulatory Visit Summary ANABELA GAYLE :2000 Visit Date:05/12/2023 Ambulatory Visit Instructions Your Diagnosis Anxiety and depression Bereavement Body mass index (BMI) of 19 or less in adult Nonsmoker Your Care Team Attending Physician - Ron Chaudhari MD. Primary Care Physician - Ron Chaudhari MD. Procedures Performed Appendectomy. Discharge Vitals Temperature (Temporal Artery) 37.4 ?C Heart Rate (Peripheral) 88 Respiratory Rate 16 Blood Pressure 116/78 Height 164.1 cm Height 65 in Allergies No Known Medication Allergies Problems Ongoing - Any problem that you are currently receiving treatment for. Anxiety and depression Bereavement Nondisplaced fracture Patient Survey You may receive a survey via text or e-mail asking about your office visit. Please share your experience with us by completing your survey. We appreciate your feedback and thank you for choosing us for your care. Education Materials BMI for Adults What is BMI? Body mass index (BMI) is a number that is calculated from a person's weight and height. BMI can help estimate how much of a person's weight is composed of fat. BMI does not measure body fat directly. Rather, it is an alternative to procedures that directly measure body fat, which can be difficult and expensive. BMI can help identify people who may be at higher risk for certain medical problems. What are BMI measurements used for? BMI is used as a screening tool to identify possible weight problems. It helps determine whether a person is obese, overweight, a healthy weight, or underweight. BMI is useful for: ? Identifying a weight problem that may be related to a medical condition or may increase the risk for medical problems. ? Promoting changes, such as changes in diet and exercise, to help reach a healthy weight. BMI screening can be repeated to see if these changes are working. How is BMI calculated? BMI involves measuring your weight in relation to your height. Both height and weight are measured, and the BMI is calculated from those numbers. This can be done either in [place] ([place] or metric measurements. Note that charts and online BMI calculators are available to help you find your BMI quickly and easily without having to do these calculations yourself. To calculate your BMI in [place] ([place] measurements: 1. Measure your weight in pounds (lb). 2. Multiply the number of pounds by 703. ? For example, for a person who weighs 180 lb, multiply that number by 703, which equals 126,540. 3. Measure your height in inches. Then multiply that number by itself to get a measurement called inches squared. ? For example, for a person who is 70 inches tall, the inches squared measurement is 70 inches x 70 inches, which equals 4,900 inches squared. 4. Divide the total from step 2 (number of lb x 703) by the total from step 3 (inches squared): 126,540 ? 4,900 = 25.8. This is your BMI. To calculate your BMI in metric measurements: 1. Measure your weight in kilograms (kg). 2. Measure your height in meters (m). Then multiply that number by itself to get a measurement called meters squared. ? For example, for a person who is 1.75 m tall, the meters squared measurement is 1.75 m x 1.75 m, which is equal to 3.1 meters squared. 3. Divide the number of kilograms (your weight) by the meters squared number. In this example: 70 ? 3.1 = 22.6. This is your BMI. What do the results mean? BMI charts are used to identify whether you are underweight, normal weight, overweight, or obese. The following guidelines will be used: ? Underweight: BMI less than 18.5. ? Normal weight: BMI between 18.5 and 24.9. ? Overweight: BMI between 25 and 29.9. ? Obese: BMI of 30 or above. Keep these notes in mind: ? Weight includes both fat and muscle, so someone with a muscular build, such as an athlete, may have a BMI that is higher than 24.9. In cases like these, BMI is not an accurate measure of body fat. ? To determine if excess body fat is the cause of a BMI of 25 or higher, further assessments may need to be done by a health care provider. ? BMI is usually interpreted in the same way for men and women. Where to find more information For more information about BMI, including tools to quickly calculate your BMI, go to these websites: ? Centers for Disease Control and Prevention: www.cdc.gov ? [place] Heart Association: www.heart.org ? National Heart, Lung, and Blood [place]: www.nhlbi.nih.gov Summary ? Body mass index (BMI) is a number that is calculated from a person's weight and height. ? BMI may help estimate how much of a person's weight is composed of fat. BMI can help identify those who may be at higher risk for certain medical problems. ? BMI can be measured using [place]riot measurements or metric measurements. ? BMI charts are used to identify whether you are (more content not included)... [facility] Family Medicine Office/Clini c Noteon 05-12-2023 Family Medicine Office/Clinic Note HPI Staff Anabela is a 22 year old female presenting for 3 month follow up mood Follow up for Mental Status: Medication adherence- dc'd due to cy Medication refill needed: no Suicidal thoughts-Not at this time Most recent HIWOT: 5 Most recent PHQ: 0 flu: due questions/concerns: was off escitalopram due to but had a miscarriage so OB dr put her back on it but just found out she's so once again it's been stopped History of Present Illness - Staff HPI Review of Systems PHQ Score Initial Depression Screen Score: 0 SCORE Physical Exam Vitals & Measurements T: 37.4 ?C(Temporal Artery) HR: 88(Peripheral) RR: 16 BP: 116/78 SpO2: 99% HT: 65 in HT: 164.1 cm General: alert, no acute distress ENMT: oral mucosa moist, Cardiovascular: regular rate and rhythm, normal peripheral perfusion Respiratory: Lungs CTA, respirations non labored Extremities: no deformity, no trauma Neurological: oriented x 4, LOC appropriate for age, CN II-XII intact, motor strength equal & normal bilaterally, speech normal Abdomen: Soft, Nontender, Non-distended, + BS Assessment/Plan 1. Anxiety and depression (F41.9: Anxiety disorder, unspecified) - Doing better even off the meds - Will monitor - Will look at restarting meds after she delivers 2. Bereavement (Z63.4: Disappearance and of family member) - As above 3. Body mass index (BMI) of 19 or less in adult (Z68.1: Body mass index [BMI] 19.9 or less, adult) - BMI education given 4. Nonsmoker (Z78.9: Other specified health status) - Please continue to not smoke Follow-up No qualifying data available Patient Education BMI for Adults Problem List/Past Medical History Ongoing Anxiety and [...] Smokeless Tobacco Use:. Household tobacco concerns: No., 05/12/2023 Family History Depression: Father. Heart disease: Father. Primary malignant neoplasm of lung: Father. Immunizations Vaccine Date Status Comments influenza [...] DTaP, unspecified formulation 1999 Recorded [facility] Comment on above: Result Comment: Elec tronically Signed By: Watson MERAZ, Ron Mack.luis\Date and Time Signed: 05/12/23 14:25 EST Patient Educationon 05-12-19 Patient Education Nutrition BMI for Adults What is BMI? Body mass index (BMI) is a number that is calculated from a person's weight and height. BMI can help estimate how much of a person's weight is composed of fat. BMI does not measure body fat directly. Rather, it is an alternative to procedures that directly measure body fat, which can be difficult and expensive. BMI can help identify people who may be at higher risk for certain medical problems. What are BMI measurements used for? BMI is used as a screening tool to identify possible weight problems. It helps determine whether a person is obese, overweight, a healthy weight, or underweight. BMI is useful for: ? Identifying a weight problem that may be related to a medical condition or may increase the risk for medical problems. ? Promoting changes, such as changes in diet and exercise, to help reach a healthy weight. BMI screening can be repeated to see if these changes are working. How is BMI calculated? BMI involves measuring your weight in relation to your height. Both height and weight are measured, and the BMI is calculated from those numbers. This can be done either in [place] ([place] or metric measurements. Note that charts and online BMI calculators are available to help you find your BMI quickly and easily without having to do these calculations yourself. To calculate your BMI in [place] ([place] measurements: 1. Measure your weight in pounds (lb). 2. Multiply the number of pounds by 703. ? For example, for a person who weighs 180 lb, multiply that number by 703, which equals 126,540. 3. Measure your height in inches. Then multiply that number by itself to get a measurement called inches squared. ? For example, for a person who is 70 inches tall, the inches squared measurement is 70 inches x 70 inches, which equals 4,900 inches squared. 4. Divide the total from step 2 (number of lb x 703) by the total from step 3 (inches squared): 126,540 ? 4,900 = 25.8. This is your BMI. To calculate your BMI in metric measurements: 1. Measure your weight in kilograms (kg). 2. Measure your height in meters (m). Then multiply that number by itself to get a measurement called meters squared. ? For example, for a person who is 1.75 m tall, the meters squared measurement is 1.75 m x 1.75 m, which is equal to 3.1 meters squared. 3. Divide the number of kilograms (your weight) by the meters squared number. In this example: 70 ? 3.1 = 22.6. This is your BMI. What do the results mean? BMI charts are used to identify whether you are underweight, normal weight, overweight, or obese. The following guidelines will be used: ? Underweight: BMI less than 18.5. ? Normal weight: BMI between 18.5 and 24.9. ? Overweight: BMI between 25 and 29.9. ? Obese: BMI of 30 or above. Keep these notes in mind: ? Weight includes both fat and muscle, so someone with a muscular build, such as an athlete, may have a BMI that is higher than 24.9. In cases like these, BMI is not an accurate measure of body fat. ? To determine if excess body fat is the cause of a BMI of 25 or higher, further assessments may need to be done by a health care provider. ? BMI is usually interpreted in the same way for men and women. Where to find more information For more information about BMI, including tools to quickly calculate your BMI, go to these websites: ? Centers for Disease Control and Prevention: www.cdc.gov ? [place] Heart Association: www.heart.org ? National Heart, Lung, and Blood [place]: www.nhlbi.nih.gov Summary ? Body mass index (BMI) is a number that is calculated from a person's weight and height. ? BMI may help estimate how much of a person's weight is composed of fat. BMI can help identify those who may be at higher risk for certain medical problems. ? BMI can be measured using Cypriot measurements or metric measurements. ? BMI charts are used to identify whether you are underweight, normal weight, overweight, or obese. This information is not intended to replace advice given to you by your health care provider. Make sure you discuss any questions you have with your health care provider. Document Revised: 12/26/2019 Document Reviewed: 11/02/2019 [employer] Patient Education ? 2022 [employer] [facility] ED Note-Physicianon 03-28-20 ED Note-Physician [id number] [facility] RAD - Ultrasound Reporton RAD - Ultrasound Report [id number] [facility] Ambulatory Visit Summaryon 1 Ambulatory Visit Summary ANABELA GAYLE :2000 Visit [...] PM EST With: Ron Chaudhari MD Where: [facility] Family Medicine Office/Clini c Noteon 02-08-2023 Family Medicine [...] 1999 Recorded DTaP, unspecified formulation 1999 Recorded [facility] Comment on above: Result Comment: Elec tronically Signed By: Watson MERAZ, Ron Paulson\.br\Date and Time Signed: 02/08/23 15:47 EDT RAD - MISCon 12-29-2022 RAD - MISC [id number]:127 Normal [facility] RAD - CT Reporton 11-22-2022 RAD - CT Report [id number] .[id number]:127 Normal [facility] Ambulatory Visit Summaryon [...] AM EDT With: Ron Chaudhari MD Where: [facility] Family Medicine Office/Clini c Noteon 11-09-2022 Family [...] Daily, # 90 tab(s), Refills(s) 0, Pharmacy: [id number], 164.1, cm, 11/09/22 15:03:00 EDT, [...] DTaP, unspecified formulation 1999 Recorded Normal [facility] Comment on above: Result Comment: Elec tronically Signed By: Watson MERAZ, Ron Mack.br\Date and Time Signed: 11/09/22 15:26 EDT Quick Strep[facility] 09-20-2022 S. pyogenes Org specific cx Ql (Throat) Negative Must See [place] Other Quick Strep Must See [place] Other Ambulatory Visit Summaryon 0 09-14-2022 Ambulatory [...] PM EDT With: Ron Chaudhari MD Where: [facility] Medicine Office/Clini c Noteon 09-14-2022 Family Medicine [...] DTaP, unspecified formulation 1999 Recorded Normal [facility] Comment on above: Result Comment: Elec tronically Signed By: Watson MERAZ, Ron Jacksonbr\Date and Time Signed: 09/14/22 16:52 EDT Family [...] Giovanni Jacobsen to record this visit. AMY client care specialist and provider reviewed before signing. AMY: [...] DTaP, unspecified formulation 1999 Recorded Normal [facility] Comment on above: Result Comment: Elec [...] has depression. She delivered her child at [facility] in 01/2022. Her went into cardiac arrest [...] Dr. Keturah Lin, in the past at [facility]; however, it did not help. Before this therapist, she was seen by another clinician in [place] who diagnosed her with bipolar disorder. She [...] recently got pulled over for having a obiee consultant her car. The patient explains that her [...] patient's has Brugada syndrome. 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 AMY client care specialist and provider reviewed before signing. AMY: [...] (COVID-19) RNA JANY+probe Ql (Unsp spec) Negative Must See [place] Other COVID/FLU/RSV RT-PCR Negative [place] [employer] [facility] Other Quick Strep[facility] 07-09-2022 S. pyogenes Org specific cx Ql (Throat) Negative Must See [place] Other Quick Strep Must See [place] Other Urine culture routineOrdered By: Ivonne Richardson on 02-10-2022 Bacteria identified Cx Nom (U) 2 Days [facility] Basophils Auto (Bld) [#/Vol] Ordered By: Ivonne Richardson on 02-09-2022 Basophils (Bld) [#/Vol] 0.0 10*3/uL 0.0-0.2 [facility] Basophils/100 WBC Auto (Bld) Ordered By: Ivonne Richardson on 02-09-2022 Basophils/100 WBC (Bld) 0.3 % . [facility] Complete Blood Count Auto Di ffon 02-09-2022 Basophils (Bld) [#/Vol] 0.0 10*3/uL Normal 0.0-0.2 [facility] Comment on above: Order Comment: Comme nt Draw at 630 am Result Comment: PERF ORMED BY: [place] [address] PATHOLOGIST [employer]PER[employer] NEAL SANCHEZ M.D. Performed By: #### C BC #### [facility] [address] [place] [address] Basophils/100 WBC (Bld) 0.3 % Normal . [facility] Comment on above: Order Comment: Comme nt Draw at 630 am Performed By: #### C BC #### [facility] [address] [place] [address] Eosinophils (Bld) [#/Vol] 0.1 10*3/uL Normal 0.0-0.45 [facility] Comment on above: Order Comment: Comme nt Draw at 630 am Performed By: #### C BC #### [address] Eosinophils/100 WBC (Bld) 1.0 % Normal . [facility] Comment on above: Order Comment: Comme nt Draw at 630 am Performed By: #### C BC #### [facility] [address] [place] [address] Erythrocyte distribution width (RBC) [Ratio] 13.8 % Normal 11.9-15.3 [facility] Comment on above: Order Comment: Comme nt Draw at 630 am Performed By: #### C BC #### [address] Hematocrit (Bld) [Volume fraction] 35.3 % Normal 34.0-46.4 [facility] Comment on above: Order Comment: Comme nt Draw at 630 am Performed By: #### C BC #### [address] Hemoglobin (Bld) [Mass/Vol] 11.5 g/dL Low 11.8-15.4 [facility] Comment on above: Order Comment: Comme nt Draw at 630 am Performed By: #### C BC #### [address] Lymphocytes (Bld) [#/Vol] 2.0 10*3/uL Normal 1.00-4.8 [facility] Comment on above: Order Comment: Comme nt Draw at 630 am Performed By: #### C BC #### [address] Lymphocytes/100 WBC (Bld) 15.0 % Normal . [facility] Comment on above: Order Comment: Comme nt Draw at 630 am Performed By: #### C BC #### [address] MCH (RBC) [Entitic mass] 29.3 pg Normal 24.7-34.3 [facility] Comment on above: Order Comment: Comme nt Draw at 630 am Performed By: #### C BC #### [address] MCV (RBC) [Entitic vol] 90.3 fL Normal 80-100 [facility] Comment on above: Order Comment: Comme nt Draw at 630 am Performed By: #### C BC #### [address] Mean Corpuscular HGB Conc 32.5 g/dL Normal 32.0-35.0 [facility] Comment on above: Order Comment: Comme nt Draw at 630 am Performed By: #### C BC #### [address] Monocytes (Bld) [#/Vol] 1.0 10*3/uL High 0.0-0.8 [facility] Comment on above: Order Comment: Comme nt Draw at 630 am Performed By: #### C BC #### [address] Monocytes/100 WBC (Bld) 7.1 % Normal . [facility] Comment on above: Order Comment: Comme nt Draw at 630 am Performed By: #### C BC #### [address] Neutrophils (Bld) [#/Vol] 10.3 10*3/uL High 1.8-7.7 [facility] Comment on above: Order Comment: Comme nt Draw at 630 am Performed By: #### C BC #### [address] Neutrophils/100 WBC (Bld) 76.6 % Normal . [facility] Comment on above: Order Comment: Comme nt Draw at 630 am Performed By: #### C BC #### [place] [address] [place] Nucleated RBC/100 WBC (Bld) [Ratio] 0.0 % Normal 0-0.5 [facility] Comment on above: Order Comment: Comme nt Draw at 630 am Performed By: #### C BC #### [address] Platelet mean volume (Bld) [Entitic vol] 7.9 fL Normal 6.3-10.7 [facility] Comment on above: Order Comment: Comme nt Draw at 630 am Performed By: #### C BC #### [place] [address] [place] Platelets (Bld) [#/Vol] 213 10*3/uL Normal 150-450 [facility] Comment on above: Order Comment: Comme nt Draw at 630 am Performed By: #### C BC #### [place] [address] [place] RBC (Bld) [#/Vol] 3.91 10*6/uL Normal 3.60-5.00 [facility] Comment on above: Order Comment: Comme nt Draw at 630 am Performed By: #### C BC #### [address] [place] [address] [place] WBC (Bld) [#/Vol] 13.4 10*3/uL High 4.5-11.0 [facility] Comment on above: Order Comment: Comme nt Draw at 630 am Performed By: #### C BC #### [facility] [address] [id number] [facility] Eosinophils Auto (Bld) [#/Vo l]Ordered By: Ivonne Richardson on 02-09-2022 Eosinophils (Bld) [#/Vol] 0.1 10*3/uL 0.0-0.45 [facility] Eosinophils/100 WBC Auto (Bl d)Ordered By: Ivonne Richardson on 02-09-2022 Eosinophils/100 WBC (Bld) 1.0 % . [facility] Erythrocyte distribution wid th Auto (RBC) [Ratio]Ordered By: Ivonne Richardson on 02-09-2022 Erythrocyte distribution width (RBC) [Ratio] 13.8 % 11.9-15.3 [facility] Hematocrit Auto (Bld) [Volum e fraction]Ordered By: Ivonne Richardson on 02-09-2022 Hematocrit (Bld) [Volume fraction] 35.3 % 34.0-46.4 [facility] Hemoglobin [Mass/volume] in BloodOrdered By: Ivonne Richardson on 02-09-2022 Hemoglobin (Bld) [Mass/Vol] 11.5 g/dL 11.8-15.4 [facility] Laboratory - Hematology and Cell countsOrdered By: Ivonne Richardson on 02-09-2022 Nucleated RBC/100 WBC (Bld) [Ratio] 0.0 % 0-0.5 [facility] Leukocytes [#/volume] in Blo od by Automated countOrdered By: Ivonne Richardson on 02-09-2022 WBC (Bld) [#/Vol] 13.4 10*3/uL 4.5-11.0 [facility] Lymphocytes Auto (Bld) [#/Vo l]Ordered By: Ivonne Richardson on 02-09-2022 Lymphocytes (Bld) [#/Vol] 2.0 10*3/uL 1.00-4.8 [facility] Lymphocytes/100 WBC Auto (Bl d)Ordered By: Ivonne Richardson on 02-09-2022 Lymphocytes/100 WBC (Bld) 15.0 % . [facility] MCH Auto (RBC) [Entitic mass ]Ordered By: Ivonne Richardson on 02-09-2022 MCH (RBC) [Entitic mass] 29.3 pg 24.7-34.3 [facility] MCHC Auto (RBC) [Mass/Vol]Or dered By: Ivonne Richardson on 02-09-2022 MCHC (RBC) [Mass/Vol] 32.5 g/dL 32.0-35.0 [facility] MCV Auto (RBC) [Entitic vol] Ordered By: Ivonne Richardson on 02-09-2022 MCV (RBC) [Entitic vol] 90.3 fL 80-100 [facility] Monocytes Auto (Bld) [#/Vol] Ordered By: Ivonne Richardson on 02-09-2022 Monocytes (Bld) [#/Vol] 1.0 10*3/uL 0.0-0.8 [facility] Monocytes/100 WBC Auto (Bld) Ordered By: Ivonne Richardson on 02-09-2022 Monocytes/100 WBC (Bld) 7.1 % . [facility] Neutrophils Auto (Bld) [#/Vo l]Ordered By: Ivonne Richardson on 02-09-2022 Neutrophils (Bld) [#/Vol] 10.3 10*3/uL 1.8-7.7 [facility] Neutrophils/100 WBC Auto (Bl d)Ordered By: Ivonne Richardson on 02-09-2022 Neutrophils/100 WBC (Bld) 76.6 % . [facility] Platelet mean volume Auto (B ld) [Entitic vol]Ordered By: Ivonne Richardson on 02-09-2022 Platelet mean volume (Bld) [Entitic vol] 7.9 fL 6.3-10.7 [facility] Platelets Auto (Bld) [#/Vol] Ordered By: Ivonne Richardson on 02-09-2022 Platelets (Bld) [#/Vol] 213 10*3/uL 150-450 [facility] RBC Auto (Bld) [#/Vol]Ordere d By: Ivonne Richardson on 02-09-2022 RBC (Bld) [#/Vol] 3.91 10*6/uL 3.60-5.00 [facility] Amphetamine Screen Ql (U)Ord ered By: Ivonne Richardson on 02-08-2022 Amphetamines Ql (U) Negative Negative [facility] Automated erythrocytes count in urine sediment (number/area)Ordered By: Ivonne Dylan on 02-08-2022 RBC Auto (Urine sed) [#/Area] None seen [HPF] 0-4 [facility] Automated leukocytes count i n urine sediment (number/area)Ordered By: Ivonne Dylan on 02-08-2022 WBC Auto (Urine sed) [#/Area] 5-9 [HPF] 0-4 [facility] Barbiturates [Presence] in U rineOrdered By: Ivonne Dylan on 02-08-2022 Barbiturates Ql (U) Negative Negative [facility] Benzodiazepines [Presence] i n UrineOrdered By: Ivonne Dylan on 02-08-2022 Benzodiazepines Ql (U) Negative Negative [facility] Bilirubin Test strip Ql (U)O rdered By: Ivonne Dylan on 02-08-2022 Bilirubin Ql (U) Negative Negative [facility] COVID-19 Antigenon 2 COVID-19 Antigen Healthcare Worker?: [...] developed and its performance characteristic determined by [employer] and validated at [facility]. This test has not been FDA cleared [...] for SARS Antigen by SAUL PERFORMED BY: [place] [address] PATHOLOGIST [employer]PER[employer] NEAL SANCHEZ M.D. Normal [facility] Comment on above: Performed By: #### O BUDS, CUU, ADDONUAPLUS #### [facility] [address] [place] [address] COVID-19 SOFIAOrdered By: Juanito Richardson on 02-08-2022 SARS-CoV+SARS-CoV-2 (COVID-19) Ag IA.rapid Ql (Resp) Negative Negative [facility] Comment on above: This is a duplicate Mirian SARS Antigen (SAUL) result to be used for statistical tracking purpose only. Color Auto (U)Ordered By: Juanito Richardson on 02-08-2022 Color (U) Dark yellow Yellow [facility] Complete Blood Count Auto Di ffon 02-08-2022 Basophils (Bld) [#/Vol] 0.1 10*3/uL Normal 0.0-0.2 [facility] Comment on above: Result Comment: PERF ORMED BY: [place] [address] PATHOLOGIST [employer]PER[employer] NEAL SANCEHZ M.D. Performed By: #### R OK W RFX #### [facility] , #### CBC #### [place] [address] [place] Basophils/100 WBC (Bld) 0.7 % Normal . [facility] Comment on above: Performed By: #### R OK W RFX #### [facility] , #### CBC #### [address] Eosinophils (Bld) [#/Vol] 0.0 10*3/uL Normal 0.0-0.45 [facility] Comment on above: Performed By: #### R OK W RFX #### [facility] , #### CBC #### [address] Eosinophils/100 WBC (Bld) 0.1 % Normal . [facility] Comment on above: Performed By: #### R OK W RFX #### [facility] , #### CBC #### [address] Erythrocyte distribution width (RBC) [Ratio] 13.6 % Normal 11.9-15.3 [facility] Comment on above: Performed By: #### R OK W RFX #### [facility] , #### CBC #### [address] Hematocrit (Bld) [Volume fraction] 40.4 % Normal 34.0-46.4 [facility] Comment on above: Performed By: #### R OK W RFX #### [facility] , #### CBC #### [facility] [address] [place] [address] Hemoglobin (Bld) [Mass/Vol] 13.6 g/dL Normal 11.8-15.4 [facility] Comment on above: Performed By: #### R OK W RFX #### [facility] , #### CBC #### [facility] [address] [place] [address] Lymphocytes (Bld) [#/Vol] 1.2 10*3/uL Normal 1.00-4.8 [facility] Comment on above: Performed By: #### R OK W RFX #### [facility] , #### CBC #### [facility] [address] [place] [address] Lymphocytes/100 WBC (Bld) 10.0 % Normal . [facility] Comment on above: Performed By: #### R OK W RFX #### [facility] , #### CBC #### [address] MCH (RBC) [Entitic mass] 29.9 pg Normal 24.7-34.3 [facility] Comment on above: Performed By: #### R OK W RFX #### [facility] , #### CBC #### [address] MCV (RBC) [Entitic vol] 88.7 fL Normal 80-100 [facility] Comment on above: Performed By: #### R OK W RFX #### [facility] , #### CBC #### [address] Mean Corpuscular HGB Conc 33.7 g/dL Normal 32.0-35.0 [facility] Comment on above: Performed By: #### R OK W RFX #### [facility] , #### CBC #### [facility] [address] [place] [address] Monocytes (Bld) [#/Vol] 0.6 10*3/uL Normal 0.0-0.8 [facility] Comment on above: Performed By: #### R OK W RFX #### [facility] , #### CBC #### [facility] [address] [place] [address] [place] Monocytes/100 WBC (Bld) 4.9 % Normal . [facility] Comment on above: Performed By: #### R OK W RFX #### [facility] , #### CBC #### [facility] [address] [place] [address] [place] Neutrophils (Bld) [#/Vol] 9.9 10*3/uL High 1.8-7.7 [facility] Comment on above: Performed By: #### R OK W RFX #### [facility] , #### CBC #### [facility] [address] [place] [address] Neutrophils/100 WBC (Bld) 84.3 % Normal . [facility] Comment on above: Performed By: #### R OK W RFX #### [facility] , #### CBC #### [address] Nucleated RBC/100 WBC (Bld) [Ratio] 0.0 % Normal 0-0.5 [facility] Comment on above: Performed By: #### R OK W RFX #### [facility] , #### CBC #### [facility] [address] [place] [address] Platelet mean volume (Bld) [Entitic vol] 7.6 fL Normal 6.3-10.7 [facility] Comment on above: Performed By: #### R OK W RFX #### [facility] , #### CBC #### [facility] [address] [place] [address] [place] Platelets (Bld) [#/Vol] 259 10*3/uL Normal 150-450 [facility] Comment on above: Performed By: #### R OK W RFX #### [facility] , #### CBC #### [facility] [address] [place] [address] [place] RBC (Bld) [#/Vol] 4.55 10*6/uL Normal 3.60-5.00 [facility] Comment on above: Performed By: #### R OK W RFX #### [facility] , #### CBC #### [facility] [address] WBC (Bld) [#/Vol] 11.7 10*3/uL High 4.5-11.0 [facility] Comment on above: Performed By: #### R OK W RFX #### [facility] , #### CBC #### [facility] [address] [place] [address] [place] Dipstick and Microscopicon 1 Appearance (U) Cloudy Critically abnormal Clear [facility] Comment on above: Order Comment: Name Collection Type:: Clean-Voided Midstream Performed By: #### O BUDS, CUU, ADDONUAPLUS #### [facility] [address] [place] [address] [place] Bacteria,Urine None Seen Normal None Seen [facility] Comment on above: Order Comment: Name Collection Type:: Clean-Voided Midstream Performed By: #### O BUDS, CUU, ADDONUAPLUS #### [facility] [address] [place] [address] [place] Bilirubin,Urine Negative Normal Negative [facility] Comment on above: Order Comment: Name Collection Type:: Clean-Voided Midstream Performed By: #### O BUDS, CUU, ADDONUAPLUS #### [facility] [address] [place] [address] [place] Color (U) Dark Yellow Critically abnormal Yellow [facility] Comment on above: Order Comment: Name Collection Type:: Clean-Voided Midstream Performed By: #### O BUDS, CUU, ADDONUAPLUS #### [facility] [address] [place] [address] [place] Glucose Ql (U) Normal Normal Normal [facility] Comment on above: Order Comment: Name Collection Type:: Clean-Voided Midstream Performed By: #### O BUDS, CUU, ADDONUAPLUS #### [facility] [address] [place] [address] [place] Hyaline Casts,Urine 9-19 High 0-8 [facility] Comment on above: Order Comment: Name Collection Type:: Clean-Voided Midstream Result Comment: PERF ORMED BY: [place] [address] PATHOLOGIST [employer]PER[employer] NEAL SANCHEZ M.D. Performed By: #### O BUDS, CUU, ADDONUAPLUS #### [address] Ketones Ql (U) 4+ High Negative [facility] Comment on above: Order Comment: Name Collection Type:: Clean-Voided Midstream Performed By: #### O BUDS, CUU, ADDONUAPLUS #### [address] Leukocyte esterase Test strip Ql (U) 2+ High Negative [facility] Comment on above: Order Comment: Name Collection Type:: Clean-Voided Midstream Performed By: #### O BUDS, CUU, ADDONUAPLUS #### [address] Nitrite,Urine Negative Normal Negative [facility] Comment on above: Order Comment: Name Collection Type:: Clean-Voided Midstream Performed By: #### O BUDS, CUU, ADDONUAPLUS #### [address] Occult Blood,Urine Negative Normal Negative [facility] Comment on above: Order Comment: Name Collection Type:: Clean-Voided Midstream Result Comment: PERF ORMED BY: [place] [address] PATHOLOGIST [employer]PER[employer] NEAL SANCHEZ M.D. Performed By: #### O BUDS, CUU, ADDONUAPLUS #### [facility] [address] [place] [address] pH (U) 6.0 [pH] Normal 5.0-9.0 [facility] Comment on above: Order Comment: Name Collection Type:: Clean-Voided Midstream Performed By: #### O BUDS, CUU, ADDONUAPLUS #### [address] Protein,Urine Trace High Negative [facility] Comment on above: Order Comment: Name Collection Type:: Clean-Voided Midstream Performed By: #### O BUDS, CUU, ADDONUAPLUS #### [address] RBC,Urine None Seen Normal 0-4 [facility] Comment on above: Order Comment: Name Collection Type:: Clean-Voided Midstream Performed By: #### O BUDS, CUU, ADDONUAPLUS #### [address] Renal Epithelial Cells,Urine None Seen Normal 0-1 [facility] Comment on above: Order Comment: Name Collection Type:: Clean-Voided Midstream Performed By: #### O BUDS, CUU, ADDONUAPLUS #### [address] Specificy [place],Urine 1.027 Normal 1.001-1.030 [facility] Comment on above: Order Comment: Name Collection Type:: Clean-Voided Midstream Performed By: #### O BUDS, CUU, ADDONUAPLUS #### [address] Squamous Epithelial Cell,Urine 10-19 High 0-2 [facility] Comment on above: Order Comment: Name Collection Type:: Clean-Voided Midstream Performed By: #### O BUDS, CUU, ADDONUAPLUS #### [place] [address] [place] Urobilinogen,Urine Normal Normal Normal [facility] Comment on above: Order Comment: Name Collection Type:: Clean-Voided Midstream Performed By: #### O BUDS, CUU, ADDONUAPLUS #### [place] [address] [place] WBC,Urine 5-9 High 0-4 [facility] Comment on above: Order Comment: Name Collection Type:: Clean-Voided Midstream Performed By: #### O BUDS, CUU, ADDONUAPLUS #### [facility] [address] Ketones Auto test strip (U) [Mass/Vol]Ordered By: Ivonne Richardson on 02-08-2022 Ketones (U) [Mass/Vol] 4+ Negative [facility] Laboratory - Drug toxicology Ordered By: Ivonne Richardson on 02-08-2022 Opiates Ql (U) Negative Negative [facility] Laboratory - UrinalysisOrder ed By: Ivonne Richardson on 02-08-2022 Hyaline casts LM Ql (Urine sed) 9-19 [LPF] 0-8 [facility] Nitrite Test strip Ql (U)Ord ered By: Ivonne Richardson on 02-08-2022 Nitrite Ql (U) Negative Negative [facility] No Panel InformationOrdered By: Ivonne Richardson on 02-08-2022 SARS Antigen (LFIA) [facility] OB Urine Drug Screen (NO THC )on 02-08-2022 Amphetamine Screen,Urine Negative Normal Negative [facility] Comment on above: Performed By: #### O BUDS, CUU, ADDONUAPLUS #### [facility] [address] [place] [address] [place] Barbiturate Screen,Urine Negative Normal Negative [facility] Comment on above: Performed By: #### O BUDS, CUU, ADDONUAPLUS #### [facility] [address] [place] [address] [place] Benzodiazepines Screen,Urine Negative Normal Negative [facility] Comment on above: Performed By: #### O BUDS, CUU, ADDONUAPLUS #### [facility] [address] [place] [address] [place] Cocaine Screen,Urine Negative Normal Negative [facility] [facility] Comment on above: Performed By: #### O BUDS, CUU, ADDONUAPLUS #### [facility] [address] [place] [address] [place] Opiate Screen,Urine Negative Normal Negative [facility] Comment on above: Performed By: #### O KENNEY GROSS, ADDONUAPLUS #### [address] Phencyclidine Screen, Urine Negative Normal Negative [facility] Comment on above: Result Comment: Thes e are unconfirmed results and should not be used for legal purposes. Drug Cut-Off Concentration: AMPH 1000 ng/mL IVONNE 200 ng/mL LISA 200 ng/mL COCM 300 ng/mL OP 300 ng/mL PCP 25 ng/mL PERFORMED BY: [place] [address] PATHOLOGIST [employer] NEAL SANCHEZ M.D. Performed By: #### O KENNEY GROSS, ADDONUAPLUS #### [address] Phencyclidine Screen Ql (U)O rdered By: Ivonne Richardson on 02-08-2022 Phencyclidine Ql (U) Negative Negative [facility] Comment on above: These are unconfirme d results and should not be used for legal purposes. Drug Cut-Off Concentration: AMPH 1000 ng/mL IVONNE 200 ng/mL LISA 200 ng/mL COCM 300 ng/mL OP 300 ng/mL PCP 25 ng/mL Protein Auto test strip (U) [Mass/Vol]Ordered By: Ivonne Richardson on 02-08-2022 Protein (U) [Mass/Vol] Trace mg/dL Negative [facility] RPR w/rfx to Quant TP Abson 02-08-2022 RPR, Rfx Quant RPR Non-Reactive Normal Non Reactive [facility] Comment on above: Result Comment: Perf ormed at: CB - [facility] [address], [place], [place] [id number] [place] Manager: John Cain PhD, Phone: [phone] PERFORMED BY: [place] [address] PATHOLOGIST [employer] NEAL SANCHEZ M.D. Performed By: #### R OK W RFX #### [facility] , #### CBC #### [place] [address] [place] Reagin Ab [Presence] in Seru m by RPROrdered By: Ivonne Richardson on 02-08-2022 Reagin Ab RPR Ql (S) Non-Reactive Non Reactive [facility] Comment on above: Performed at: [address] [id number] Director: John Cain PhD, Phone: [phone] Mirian Ag Negativeon 02-09-20 Mirian Ag Negative Negative Normal Negative [facility] Comment on above: Result Comment: This is a duplicate Mirian SARS Antigen (SAUL) result to be used for statistical tracking purpose only. PERFORMED BY: [place] [address] PATHOLOGIST [employer] NEAL SANCHEZ M.D. Performed By: #### O KENNEY GROSS ADDONUAPLUS #### [address] Specific gravity Auto test s trip (U) [Rel density]Ordered By: Ivonne Richardson on 02-08-2022 Specific gravity (U) [Rel density] 1.027 1.001-1.030 [facility] Squamous epithelial cells de tection in urine sediment by light microscopyOrdered By: Ivonne Richardson on 02-08-2022 Epithelial cells.squamous LM Ql (Urine sed) 10-19 [HPF] 0-2 [facility] Urine Cultureon 02-08-2022 Bacteria identified Cx Nom (U) >100,000 colonies/ml mixed bacterial skin contaminants 2 Days PERFORMED BY: [place] [address] PATHOLOGIST [employer] NEAL SANCHEZ M.D. Normal [facility] Comment on above: Performed By: #### O KENNEY GROSS, ADDONUAPLUS #### [address] Urine bacteria detection by automated methodOrdered By: Ivonne Richardson on 02-08-2022 Bacteria Auto Ql (U) None seen None Seen [facility] Urine clarity by refractomet ry automatedOrdered By: Ivonne Richardson on 02-08-2022 Clarity Refractometry automated (U) Cloudy Clear [facility] Urine cocaine detectionOrder ed By: Ivonne Richardson on 02-08-2022 Cocaine Ql (U) Negative Negative [facility] Urine glucose measurement by automated test strip (mass/volume)Ordered By: Ivonne Richardosn on 02-08-2022 Glucose Auto test strip (U) [Mass/Vol] Normal mg/dL Normal [facility] Urine hemoglobin detection b y automated test stripOrdered By: Ivonne Richardson on 02-08-2022 Hemoglobin Auto test strip Ql (U) Negative Negative [facility] Urine leukocyte esterase det ection by automated test stripOrdered By: Ivonne Richardson on 02-08-2022 Leukocyte esterase Auto test strip Ql (U) 2+ Negative [facility] Urine sediment renal epithel ial cell count by microscopy (number/high power field)Ordered By: Ivonne Richardson on 02-08-2022 Epithelial cells.renal LM.HPF (Urine sed) [#/Area] None seen [HPF] 0-1 [facility] Urobilinogen Auto test strip (U) [Mass/Vol]Ordered By: Ivonne Richardson on 02-08-2022 Urobilinogen (U) [Mass/Vol] Normal mg/dL Normal [facility] pH Auto test strip (U)Ordere d By: Ivonne Richardson on 02-08-2022 pH (U) 6.0 [pH] 5.0-9.0 [facility] Amphetamine Screen Ql (U)Ord ered By: EZEKIEL Matthews on 01-28-2022 Amphetamines Ql (U) Negative Negative [facility] Barbiturates [Presence] in U rineOrdered By: EZEKIEL Matthews on 01-28-2022 Barbiturates Ql (U) Negative Negative [facility] Benzodiazepines [Presence] i n UrineOrdered By: EZEKIEL Matthews on 01-28-2022 Benzodiazepines Ql (U) Negative Negative [facility] Bilirubin Test strip Ql (U)O rdered By: EZEKIEL Matthews on 01-28-2022 Bilirubin Ql (U) Negative Negative [facility] Color Auto (U)Ordered By: MD CHRISTIE Matthews on 01-28-2022 Color (U) Yellow Yellow [facility] Ketones Auto test strip (U) [Mass/Vol]Ordered By: EZEKIEL Matthews on 01-28-2022 Ketones (U) [Mass/Vol] Negative Negative [facility] Laboratory - Drug toxicology Ordered By: EZEKIEL Matthews on 01-28-2022 Opiates Ql (U) Negative Negative [facility] Nitrite Test strip Ql (U)Ord ered By: EZEKIEL Matthews on 01-28-2022 Nitrite Ql (U) Negative Negative [facility] OB Urine Drug Screen (NO THC )on 01-28-2022 Amphetamine Screen,Urine Negative Normal Negative [facility] Comment on above: Performed By: #### U A, OBUDS #### [facility] [address] [place] [address] [place] Barbiturate Screen,Urine Negative Normal Negative [facility] Comment on above: Performed By: #### U A, OBUDS #### [facility] [address] [place] [address] [place] Benzodiazepines Screen,Urine Negative Normal Negative [facility] Comment on above: Performed By: #### U A, OBUDS #### [facility] [address] [place] [address] [place] Cocaine Screen,Urine Negative Normal Negative [facility] Comment on above: Performed By: #### U A, OBUDS #### [facility] [address] [place] [address] [place] Opiate Screen,Urine Negative Normal Negative [facility] Comment on above: Performed By: #### U A, OBUDS #### [facility] [address] [place] [address] [place] Phencyclidine Screen, Urine Negative Normal Negative [facility] Comment on above: Result Comment: Thes e are unconfirmed results and should not be used for legal purposes. Drug Cut-Off Concentration: AMPH 1000 ng/mL IVONNE 200 ng/mL LISA 200 ng/mL COCM 300 ng/mL OP 300 ng/mL PCP 25 ng/mL PERFORMED BY: [place] [address] PATHOLOGIST [employer] NEAL SANCHEZ M.D. Performed By: #### U A, OBUDS #### [facility] [address] [place] [address] Phencyclidine Screen Ql (U)O rdered By: EZEKIEL Matthews on 01-28-2022 Phencyclidine Ql (U) Negative Negative [facility] Comment on above: These are unconfirme d results and should not be used for legal purposes. Drug Cut-Off Concentration: AMPH 1000 ng/mL IVONNE 200 ng/mL LISA 200 ng/mL COCM 300 ng/mL OP 300 ng/mL PCP 25 ng/mL Protein Auto test strip (U) [Mass/Vol]Ordered By: EZEKIEL Matthews on 01-28-2022 Protein (U) [Mass/Vol] Negative Negative [facility] Specific gravity Auto test s trip (U) [Rel density]Ordered By: EZEKIEL Matthews on 01-28-2022 Specific gravity (U) [Rel density] 1.009 1.001-1.030 [facility] Urinalysison 01-28-2022 Appearance (U) Clear Normal Clear [facility] Comment on above: Order Comment: Name Collection Type:: Clean-Voided Midstream Performed By: #### U A, OBUDS #### [facility] [address] [place] [address] [place] Bilirubin,Urine Negative Normal Negative [facility] Comment on above: Order Comment: Name Collection Type:: Clean-Voided Midstream Performed By: #### U A, OBUDS #### [facility] [address] [place] [address] [place] Color (U) Yellow Normal Yellow [facility] Comment on above: Order Comment: Name Collection Type:: Clean-Voided Midstream Performed By: #### U A, OBUDS #### [address] Glucose Ql (U) Normal Normal Normal [facility] Comment on above: Order Comment: Name Collection Type:: Clean-Voided Midstream Performed By: #### U A, OBUDS #### [address] Ketones Ql (U) Negative Normal Negative [facility] Comment on above: Order Comment: Name Collection Type:: Clean-Voided Midstream Performed By: #### U A, OBUDS #### [address] Leukocyte esterase Test strip Ql (U) Negative Normal Negative [facility] Comment on above: Order Comment: Name Collection Type:: Clean-Voided Midstream Performed By: #### U A, OBUDS #### [address] Nitrite,Urine Negative Normal Negative [facility] Comment on above: Order Comment: Name Collection Type:: Clean-Voided Midstream Performed By: #### U A, OBUDS #### [address] Occult Blood,Urine Negative Normal Negative [facility] Comment on above: Order Comment: Name Collection Type:: Clean-Voided Midstream Result Comment: PERF ORMED BY: [place] [address] PATHOLOGIST [employer] NEAL SANCHEZ M.D. Performed By: #### U A, OBUDS #### [place] [address] [place] pH (U) 7.0 [pH] Normal 5.0-9.0 [facility] Comment on above: Order Comment: Name Collection Type:: Clean-Voided Midstream Performed By: #### U A, OBUDS #### [place] [address] [place] Protein,Urine Negative Normal Negative [facility] Comment on above: Order Comment: Name Collection Type:: Clean-Voided Midstream Performed By: #### U A, OBUDS #### [place] [address] [place] Specificy [place],Urine 1.009 Normal 1.001-1.030 [facility] Comment on above: Order Comment: Name Collection Type:: Clean-Voided Midstream Performed By: #### U A, OBUDS #### [facility] [address] [place] [id number] [place] Urobilinogen,Urine Normal Normal Normal [facility] Comment on above: Order Comment: Name Collection Type:: Clean-Voided Midstream Performed By: #### U A, OBUDS #### [facility] [address] Urine clarity by refractomet ry automatedOrdered By: EZEKIEL Matthews on 01-28-2022 Clarity Refractometry automated (U) Clear Clear [facility] Urine cocaine detectionOrder ed By: EZEKIEL Matthews on 01-28-2022 Cocaine Ql (U) Negative Negative [facility] Urine glucose measurement by automated test strip (mass/volume)Ordered By: MARIA LUZ Matthews on 01-28-2022 Glucose Auto test strip (U) [Mass/Vol] Normal mg/dL Normal [facility] Urine hemoglobin detection b y automated test stripOrdered By: EZEKIEL Matthews on 01-28-2022 Hemoglobin Auto test strip Ql (U) Negative Negative [facility] Urine leukocyte esterase det ection by automated test stripOrdered By: EZEKIEL Matthews on 01-28-2022 Leukocyte esterase Auto test strip Ql (U) Negative Negative [facility] Urobilinogen Auto test strip (U) [Mass/Vol]Ordered By: EZEKIEL Matthews on 01-28-2022 Urobilinogen (U) [Mass/Vol] Normal mg/dL Normal [facility] pH Auto test strip (U)Ordere d By: EZEKIEL Matthews on 01-28-2022 pH (U) 7.0 [pH] 5.0-9.0 [facility] S. agalactiae Org specific c x Ql (Unsp spec)Ordered By: EZEKIEL Matthews on 01-17-2022 Streptococcus agalactiae culture No Group B Beta Streptococcus Isolated 3 Days [facility] Strep B Cultureon 01-14-2022 Strep B Culture Reason for Exam 35 weeks gestation of ; screening for stre Vaginal/Rectal Reason for Exam: 35 weeks gestation of ; screening for stre : Vaginal/Rectal No Group B Beta Streptococcus Isolated 3 Days PERFORMED BY: [place] [address] PATHOLOGIST [employer] NEAL SANCHEZ M.D. Normal [facility] Comment on above: Performed By: #### O BUDS, CUU, ADDONUAPLUS #### [facility] [address] [place] [address] [place] Fibronectinon 12-24-19 Fibronectin Negative Normal Negative [facility] Comment on above: Order Comment: Reaso n for Exam 32 weeks gestation of ;Pelvic pressure in female;Lo Result Comment: PERF ORMED BY: [place] [address] PATHOLOGIST [employer] NEAL SANCHEZ M.D. Performed By: #### F FN #### [facility] [address] [place] [address] fibronectinOrdered By: EZEKIEL Matthews on 12-23-2021 Fibronectin. (Vag fld) [Mass/Vol] Negative Negative [facility] CBC AUTO DIFFon 09-03-2021 BASO # 0.0 103/ul Normal 0.0-0.1 [facility] Comment on above: Performed By: #### C BC #### [facility] [address] [place] [address] Dr. Rafa Johnson Basophils/100 WBC (Bld) 0.3 % Normal 0.2-2.0 [facility] Comment on above: Performed By: #### C BC #### [facility] [address] [place] [address] Dr. Rafa Johnson EO # 0.0 103/ul Normal 0.0-0.7 [facility] Comment on above: Performed By: #### C BC #### [facility] [address] [place] [address] Dr. Rafa Johnson Eosinophils/100 WBC (Bld) 0.3 % Critically low 0.9-7.0 [facility] Comment on above: Performed By: #### C BC #### [facility] [address] [place] [address] Dr. Rafa Johnson Erythrocyte distribution width (RBC) [Ratio] 13.0 % Normal 11.0-15.0 [facility] Comment on above: Performed By: #### C BC #### [facility] [address] [place] [address] Dr. Rafa Johnson Hematocrit (Bld) [Volume fraction] 39.6 % Normal 36.0-48.0 [facility] Comment on above: Performed By: #### C BC #### [facility] [address] [place] [address] Dr. Rafa Johnson Hemoglobin (Bld) [Mass/Vol] 13.2 g/dL Normal 12.0-16.0 [facility] Comment on above: Performed By: #### C BC #### [facility] [address] [place] [address] Dr. Rafa Johnson IG # 0.04 10e3/ul Critically high 0.00-0.03 [facility] Comment on above: Performed By: #### C BC #### [facility] [address] [place] [address] Dr. Rafa Johnson IG % 0.4 % Normal 0.0-0.5 [facility] Comment on above: Performed By: #### C BC #### [facility] [address] [place] [address] Dr. Rafa Johnson LYMPH # 1.5 103/ul Normal 1.2-3.8 [facility] Comment on above: Performed By: #### C BC #### [facility] [address] [place] [address] Dr. Rafa Johnson Lymphocytes/100 WBC (Bld) 15.4 % Critically low 20.5-60.0 [facility] Comment on above: Performed By: #### C BC #### [facility] [address] [place] [address] Dr. Rafa Johnson MANUAL DIFF REQ NO Normal [facility] Comment on above: Performed By: #### C BC #### [facility] [address] [place] [address] [address] Rafa Johnson MCH (RBC) [Entitic mass] 31.1 pg Normal 26.7-34.0 [facility] Comment on above: Performed By: #### C BC #### [facility] [address] [place] [address] Dr. Rafa Johnson MCHC (RBC) [Mass/Vol] 33.3 g/dL Normal 29.9-35.2 [facility] Comment on above: Performed By: #### C BC #### [facility] [address] [place] [address] Dr. Rafa Johnson MCV (RBC) [Entitic vol] 93.2 fL Normal 81.0-99.0 [facility] Comment on above: Performed By: #### C BC #### [facility] [address] [place] [address] Dr. Rafa Johnson MONO # 0.4 103/ul Normal 0.3-0.8 [facility] Comment on above: Performed By: #### C BC #### [facility] [address] [place] [address] Dr. Rafa Johnson Monocytes/100 WBC (Bld) 4.0 % Normal 1.7-12.0 [facility] Comment on above: Performed By: #### C BC #### [facility] [address] [place] [address] Dr. Rafa Johnson NEUT # 7.7 103/ul Critically high 1.4-6.5 [facility] Comment on above: Performed By: #### C BC #### [facility] [address] [place] [address] Dr. Rafa Johnson Neutrophils/100 WBC (Bld) 79.6 % Critically high 43.0-75.0 [facility] Comment on above: Performed By: #### C BC #### [facility] [address] [place] [address] Dr. Rafa Johnson Platelet mean volume (Bld) [Entitic vol] 9.2 fL Critically low 9.5-13.5 [facility] Comment on above: Performed By: #### C BC #### [facility] [address] [place] [address] Dr. Rafa Johnson PLT 191 103/ul Normal 150-450 [facility] Comment on above: Performed By: #### C BC #### [facility] [address] [place] [address] Dr. Rafa Johnson RBC 4.25 106/ul Normal 4.20-5.40 [facility] Comment on above: Performed By: #### C BC #### [facility] [address] [place] [address] Dr. Rafa Johnson WBC 9.7 103/ul Normal 4.0-11.0 [facility] Comment on above: Performed By: #### C BC #### [facility] [address] [place] [address] Dr. Rafa Johnson ER URINE PROFILEon 2 Bilirubin Ql (U) Negative Normal NEGATIVE [facility] Comment on above: Performed By: #### E RUR #### [facility] [address] [place] [address] Dr. Rafa Johnson Clarity (U) CLEAR Normal CLEAR [facility] Comment on above: Performed By: #### E RUR #### [facility] [address] [place] [address] Dr. Rafa Johnson Color (U) LT. YELLOW Normal YELLOW [facility] Comment on above: Performed By: #### E RUR #### [facility] [address] [place] [address] Dr. Rafa Johnson ERUAHMary Ellen A micrscopic examination will be performed if indicated. Normal [facility] Comment on above: Performed By: #### E RUR #### [facility] [address] [place] [address] Dr. Rafa Johnson Glucose Ql (U) Negative Normal NEGATIVE [facility] Comment on above: Performed By: #### E RUR #### [facility] [address] [place] [address] Dr. Rafa Johnson Hemoglobin Ql (U) Negative Normal NEGATIVE [facility] Comment on above: Performed By: #### E RUR #### [facility] [address] [place] [address] Dr. Rafa Johnson Ketones Ql (U) TRACE Abnormal NEGATIVE [facility] Comment on above: Performed By: #### E RUR #### [facility] [address] [place] [address] Dr. Rafa Johnson LEUKOCYTES Negative Normal NEGATIVE [facility] Comment on above: Performed By: #### E RUR #### [facility] [address] [place] [address] Dr. Rafa Johnson Nitrite Ql (U) Negative Normal NEGATIVE [facility] Comment on above: Performed By: #### E RUR #### [facility] [address] [place] [address] Dr. Rafa Johnson pH (U) 8.0 [pH] Normal 5-9 [facility] Comment on above: Performed By: #### E RUR #### [facility] [address] [place] [address] Dr. Rafa Johnson SPEC GRAVITY 1.020 Normal 1.005-<=1.02 5 [facility] Comment on above: Performed By: #### E RUR #### [facility] [address] [place] [address] Dr. Rafa Johnson UA PROTEIN Negative Normal NEGATIVE/ TRACE [facility] Comment on above: Performed By: #### E RUR #### [facility] [address] [place] [address] Dr. Rafa Johnson UR MICRO IND NOT INDICATED Normal [facility] Comment on above: Performed By: #### E RUR #### [facility] [address] [place] [address] Dr. Rafa Johnson Urobilinogen Qn (U) 1.0 {Nila'U}/dL Normal 0.2 - 1. 0 [facility] Comment on above: Performed By: #### E RUR #### [facility] [address] [place] [address] Dr. Rafa Johnson PROF CHEM 8 (BAS METB)on Anion gap [Moles/Vol] 12.9 mmol/L Normal [facility] Comment on above: Performed By: #### B MP #### [facility] [address] [place] [address] [address] Rafa Johnson Calcium [Mass/Vol] 8.4 mg/dL Critically low 8.5-10.1 [facility] Comment on above: Performed By: #### B MP #### [facility] [address] [address] [address] Rafa Johnson Chloride [Moles/Vol] 103 mmol/L Normal 98-107 [facility] Comment on above: Performed By: #### B MP #### [facility] [address] [place] [address] Dr. Rafa Johnson CO2 [Moles/Vol] 25.8 mmol/L Normal 21.0-32.0 [facility] Comment on above: Performed By: #### B MP #### [facility] [address] [address] [address] Rafa Johnson Creatinine [Mass/Vol] 0.47 mg/dL Critically low 0.55-1.02 [facility] Comment on above: Performed By: #### B MP #### [facility] [address] [place] [address] Dr. Rafa Johnson EGFR-AF TONGAN >60 Normal >=60 [facility] Comment on above: Performed By: #### B MP #### [facility] [address] [place] [address] [address] Rafa Johnson EGFR-NON AF TONGAN >60 Normal >=60 [facility] Comment on above: Performed By: #### B MP #### [facility] [address] [address] [address] Rafa Johnson Glucose [Mass/Vol] 84 mg/dL Normal 74-106 [facility] Comment on above: Performed By: #### B MP #### [facility] [address] [address] [address] Rafa Johnson Potassium [Moles/Vol] 3.7 mmol/L Normal 3.5-5.1 [facility] Comment on above: Performed By: #### B MP #### [facility] [address] [place] [address] Dr. Rafa Johnson Sodium [Moles/Vol] 138 mmol/L Normal 136-145 [facility] Comment on above: Performed By: #### B MP #### [facility] [address] [place] [address] Dr. Rafa Johnson Urea nitrogen [Mass/Vol] 9.0 mg/dL Normal 7.0-18.0 [facility] Comment on above: Performed By: #### B MP #### [facility] [address] [place] [address] Dr. Rafa Johnson Urea nitrogen/Creatinine [Mass ratio] 19.1 mg/mg Normal [facility] Comment on above: Performed By: #### B MP #### [facility] [address] [place] [address] Dr. Rafa Johnson CBC W MANUAL DIFFon 07-24-19 22 ATYPICAL LYMPH # Normal [facility] Comment on above: Performed By: #### C BCMAN #### [facility] [address] [place] [address] Dr. Rafa Johnson ATYPICAL LYMPH % Normal [facility] Comment on above: Performed By: #### C BCMAN #### [facility] [address] [place] [address] Dr. Rafa Johnson BAND # Normal 0.0-0.3 [facility] Comment on above: Performed By: #### C BCMAN #### [facility] [address] [place] [address] Dr. Rafa Johnson BAND % Normal 0-5 [facility] Comment on above: Performed By: #### C BCMAN #### [facility] [address] [place] [address] Dr. Rafa Johnson BASOM # 0.00 103/ul Normal 0.00-0.10 [facility] Comment on above: Performed By: #### C BCMAN #### [facility] [address] [place] [address] Dr. Rafa Johnson BASOM % 0.0 % Critically low 0.2-2.0 [facility] Comment on above: Performed By: #### C BCMAN #### [facility] [address] [address] [address] Rafa Johnson BLAST # Normal [facility] Comment on above: Performed By: #### C BCMAN #### [facility] [address] [address] [address] Rafa Johnson BLAST % Normal [facility] Comment on above: Performed By: #### C BCLYNDSEY #### [facility] [address] [place] [address] Dr. Rafa Johnson CORRECTED WBC Normal 4.0-11.0 [facility] Comment on above: Performed By: #### C BCLYNDSEY #### [facility] [address] [place] [address] Dr. Rafa Johnson EOS # 0.00 103/ul Normal 0.00-0.70 [facility] Comment on above: Performed By: #### C BCLYNDSEY #### [facility] [address] [place] [address] Dr. Rafa Johnson EOS% 0.0 % Critically low 0.9-7.0 [facility] Comment on above: Performed By: #### C BCLYNDSEY #### [facility] [address] [place] [address] Dr. Rafa Johnson HCT 41.7 % Normal 36.0-48.0 [facility] Comment on above: Performed By: #### C BCMAN #### [facility] [address] [place] [address] Dr. Rafa Johnson HGB 13.7 g/dl Normal 12.0-16.0 [facility] Comment on above: Performed By: #### C BCMAN #### [facility] [address] [place] [address] Dr. Rafa Johnson LYMPHM # 0.46 103/ul Critically low 1.20-3.80 [facility] Comment on above: Performed By: #### C BCMAN #### [facility] [address] [place] [address] Dr. Rafa Johnson LYMPHM% 5.0 % Critically low 20.5-60.0 [facility] Comment on above: Performed By: #### C VICENTE #### [facility] [address] [place] [address] Dr. Rfaa Johnson MCH 30.2 pg Normal 26.7-34.0 [facility] Comment on above: Performed By: #### C VICENTE #### [facility] [address] [place] [address] Dr. Rafa Johnson MCHC 32.9 g/dl Normal 29.9-35.2 [facility] Comment on above: Performed By: #### C VICENTE #### [facility] [address] [place] [address] Dr. Rafa Johnson MCV 92.1 fL Normal 81.0-99.0 [facility] Comment on above: Performed By: #### C VICENTE #### [facility] [address] [place] [address] Dr. Rafa Johnson METAMYELOCYTE # Normal [facility] Comment on above: Performed By: #### C VICENTE #### [facility] [address] [place] [address] Dr. Rafa Johnson METAMYELOCYTE % Normal [facility] Comment on above: Performed By: #### C VICENTE #### [facility] [address] [place] [address] Dr. Rafa Johnson MONOM# 0.36 103/ul Normal 0.30-0.80 [facility] Comment on above: Performed By: #### C VICENTE #### [facility] [address] [place] [address] Dr. Rafa Johnson MONOM% 4.0 % Normal 1.7-12.0 [facility] Comment on above: Performed By: #### C VICENTE #### [facility] [address] [place] [address] Dr. Rafa Johnson MPV 8.8 fL Critically low 9.5-13.5 [facility] Comment on above: Performed By: #### C RAMONALYNDSEY #### [facility] [address] [address] [address] Rafa Johnson MYELOCYTE # Normal [facility] Comment on above: Performed By: #### C VICENTE #### [facility] [address] [address] [address] Rafa Johnson MYELOCYTE % Normal [facility] Comment on above: Performed By: #### C VICENTE #### [facility] [address] [address] [address] Rafa Johnson NRBC Normal [facility] Comment on above: Performed By: #### C VICENTE #### [facility] [address] [address] [address] Rafa Johnson PLT 191 103/ul Normal 150-450 [facility] Comment on above: Performed By: #### C VICENTE #### [facility] [address] [address] [address] Rafa Johnson RBC 4.53 106/ul Normal 4.20-5.40 [facility] Comment on above: Performed By: #### C VICENTE #### [facility] [address] [address] [address] Rafa Johnson RDW 13.9 % Normal 11.0-15.0 [facility] Comment on above: Performed By: #### C VICENTE #### [facility] [address] [address] [address] Rafa Johnson SEG # 8.28 103/ul Critically high 1.40-6.50 [facility] Comment on above: Performed By: #### C BCLYNDSEY #### [facility] [address] [address] [address] Rafa Johnson SEG % 91.0 % Critically high 43.0-75.0 [facility] Comment on above: Performed By: #### C VICENTE #### [facility] [address] [address] [address] Rafa Johnson WBC 9.1 103/ul Normal 4.0-11.0 [facility] Comment on above: Performed By: #### C VICENTE #### [facility] [address] [address] [address] Rafa MARTIN URINE PROFILEon 2 Bilirubin Ql (U) Negative Normal NEGATIVE [facility] Comment on above: Performed By: #### C MP, LIPA #### [facility] [address] [place] [address] Dr. Rafa Johnson Clarity (U) CLEAR Normal CLEAR [facility] Comment on above: Performed By: #### C MP, LIPA #### [facility] [address] [place] [address] Dr. Rafa Johnson Color (U) DK. YELLOW Normal YELLOW [facility] Comment on above: Performed By: #### C MP, LIPA #### [facility] [address] [place] [address] Dr. Rafa SMART A micrscopic examination will be performed if indicated. Normal [facility] Comment on above: Performed By: #### C MP, LIPA #### [facility] [address] [place] [address] Dr. Rafa Johnson Glucose Ql (U) Negative Normal NEGATIVE [facility] Comment on above: Performed By: #### C MP, LIPA #### [facility] [address] [place] [address] Dr. Rafa Johnson Hemoglobin Ql (U) Negative Normal NEGATIVE [facility] Comment on above: Performed By: #### C MP, LIPA #### [facility] [address] [place] [address] Dr. Rafa Johnson Ketones Ql (U) 15 mg/dl Abnormal NEGATIVE [facility] Comment on above: Performed By: #### C MP, LIPA #### [facility] [address] [place] [address] Dr. Rafa Johnson LEUKOCYTES Negative Normal NEGATIVE [facility] Comment on above: Performed By: #### C MP, LIPA #### [facility] [address] [place] [address] Dr. Rafa Johnson Nitrite Ql (U) Negative Normal NEGATIVE [facility] Comment on above: Performed By: #### C MP, LIPA #### [facility] [address] [place] [address] Dr. Rafa Johnson pH (U) 6.5 [pH] Normal 5-9 [facility] Comment on above: Performed By: #### C MP, LIPA #### [facility] [address] [place] [address] Dr. Rafa Johnson SPEC GRAVITY 1.025 Normal 1.005-<=1.[address] [place] [address] Comment on above: Performed By: #### C MP, LIPA #### [facility] [address] [place] [address] Dr. Rafa Johnson UA PROTEIN Negative Normal NEGATIVE/ TRACE [facility] Comment on above: Performed By: #### C MP, LIPA #### [facility] [address] [place] [address] Dr. Rafa Johnson UR MICRO IND NOT INDICATED Normal [facility] Comment on above: Performed By: #### C MP, LIPA #### [facility] [address] [place] [address] Dr. Rafa Johnson Urobilinogen Qn (U) 0.2 {Nila'U}/dL Normal 0.2 - 1. 0 [facility] Comment on above: Performed By: #### C MP, LIPA #### [facility] [address] [place] [address] Dr. Rafa Johnson LIPASEon 07-23-2021 Lipase [Catalytic activity/Vol] 59.0 U/L Normal 23.0-300.0 [facility] Comment on above: Performed By: #### C MP, LIPA #### [facility] [address] [place] [address] Dr. Rafa Johnson URon 07-23-2021 , QUAL Positive Abnormal NEGATIVE [facility] Comment on above: Performed By: #### E RUR, PREGU #### [facility] [address] [place] [address] Dr. Rafa Johnson PROF 14(COMP METB)on 022 Albumin [Mass/Vol] 3.6 g/dL Normal 3.4-5.0 [facility] Comment on above: Performed By: #### C MP, LIPA #### [facility] [address] [address] [address] Rafa Johnson Albumin/Globulin [Mass ratio] 1.0 {ratio} Normal [facility] Comment on above: Performed By: #### C MP, LIPA #### [facility] [address] [address] [address] Rafa Johnson ALP [Catalytic activity/Vol] 54 U/L Normal 46-116 [facility] Comment on above: Performed By: #### C MP, LIPA #### [facility] [address] [address] [address] Rafa Johnson ALT [Catalytic activity/Vol] 12 U/L Critically low 14-59 [facility] Comment on above: Performed By: #### C MP, LIPA #### [facility] [address] [address] [address] Rafa Johnson Anion gap [Moles/Vol] 13.6 mmol/L Normal [facility] Comment on above: Performed By: #### C MP, LIPA #### [facility] [address] [address] [address] Rafa Johnson AST [Catalytic activity/Vol] 15 U/L Normal 15-37 [facility] Comment on above: Performed By: #### C MP, LIPA #### [facility] [address] [address] [address] Rafa Johnson Bilirubin [Mass/Vol] 0.9 mg/dL Normal 0.2-1.3 [facility] Comment on above: Performed By: #### C MP, LIPA #### [facility] [address] [address] [address] Rafa Johnson Calcium [Mass/Vol] 8.5 mg/dL Normal 8.5-10.1 [facility] Comment on above: Performed By: #### C MP, LIPA #### [facility] [address] [address] [address] Rafa Johnson Chloride [Moles/Vol] 101 mmol/L Normal 98-107 [facility] Comment on above: Performed By: #### C MP, LIPA #### [facility] [address] [address] [address] Rafa Johnson CO2 [Moles/Vol] 23.9 mmol/L Normal 22.0-30.0 [facility] Comment on above: Performed By: #### C MP, LIPA #### [facility] [address] [place] [address] Dr. Rafa Johnson Creatinine [Mass/Vol] 0.54 mg/dL Normal 0.52-1.04 [facility] Comment on above: Performed By: #### C MP, LIPA #### [facility] [address] [place] [address] Dr. Rafa Johnson EGFR-AF TONGAN >60 Normal >=60 [facility] Comment on above: Performed By: #### C MP, LIPA #### [facility] [address] [place] [address] Dr. Rafa Johnson EGFR-NON AF TONGAN >60 Normal >=60 [facility] Comment on above: Performed By: #### C MP, LIPA #### [facility] [address] [place] [address] Dr. Rafa Johnson Globulin (S) [Mass/Vol] 3.6 g/dL Normal [facility] Comment on above: Performed By: #### C MP, LIPA #### [facility] [address] [place] [address] Dr. Rafa Johnson Glucose [Mass/Vol] 107 mg/dL Critically high 74-106 [facility] Comment on above: Performed By: #### C MP, LIPA #### [facility] [address] [place] [address] Dr. Rafa Johnson Potassium [Moles/Vol] 3.5 mmol/L Normal 3.4-5.0 [facility] Comment on above: Performed By: #### C MP, LIPA #### [facility] [address] [place] [address] Dr. Rafa Johnson Protein [Mass/Vol] 7.2 g/dL Normal 6.1-8.2 [facility] Comment on above: Performed By: #### C MP, LIPA #### [facility] [address] [address] [address] Rafa Johnson Sodium [Moles/Vol] 135 mmol/L Critically low 137-145 [facility] Comment on above: Performed By: #### C MP, LIPA #### [facility] [address] [place] [address] Dr. Rafa Johnson Urea nitrogen [Mass/Vol] 12.0 mg/dL Normal 7.0-18.0 [facility] Comment on above: Performed By: #### C MP, LIPA #### [facility] [address] [place] [address] Dr. Rafa Johnson Urea nitrogen/Creatinine [Mass ratio] 22.2 mg/mg Normal [facility] Comment on above: Performed By: #### C MP, LIPA #### [facility] [address] [place] [address] Dr. Rafa Johnson Vaginitis (VG)on 07-21-2021 Atopobium Vaginae High - 2 Critically abnormal . [facility] Comment on above: Order Comment: Reaso n for Exam Leukorrhea Performed By: #### V AGINITIS #### [facility] , BVAB2 Low - 0 Normal . [facility] Comment on above: Order Comment: Reaso n for Exam Leukorrhea Performed By: #### V AGINITIS #### [facility] , Luz [place], JANY Positive Critically abnormal Negative [facility] Comment on above: Order Comment: Reaso n for Exam Leukorrhea Result Comment: This test was developed and its performance characteristics determined by [facility]. It has not been cleared or approved by the Food and Drug Administration. Performed By: #### V AGINITIS #### [facility] , Luz [place], JANY Negative Normal Negative [facility] Comment on above: Order Comment: Reaso n for Exam Leukorrhea Result Comment: This test was developed and its performance characteristics determined by [facility]. It has not been cleared or approved by the Food and Drug Administration. PERFORMED BY: [facility] [address] [place] [address] PATHOLOGIST [employer]PER[employer] NEAL SANCHEZ M.D. Performed By: #### Jamaal PAGAN #### [facility] , Megasphaera Low - 0 Normal . [facility] Comment on above: Order Comment: Reaso n [...] and Drug Administration. Performed By: #### Jamaal PAGAN #### [facility] , Tric Vag JANY Negative Normal Negative [facility] Comment on above: Order Comment: Reaso n for Exam Leukorrhea Result Comment: Perf ormed at: =G - [facility] [address] [id number] [employer] Manager: Catherine Hernandez MD, Phone: [phone] Performed By: #### Jamaal PAGAN #### [facility] , [facility] SARS-CoV-2 (COVID-19) RNA JANY+probe Ql (Unsp spec) Not detected Normal NOT DETECTED [facility] Comment on above: Result Comment: This test is not yet approved or cleared by the [place] FDA. When there are no FDA-approved or cleared tests available, and other criteria are met, FDA can make tests available under an emergency access mechanism called an Emergency Use Authorization (EUA). The EUA for this test is supported by the [place] of Health and Human Service's (HHS's) declaration [...] Performed By: #### C MP, LIPA #### [facility] [address] [place] [address] Dr. Rafa Johnson COVID Quick Testingon 2020 Result Negative [facility] [employer] Other Quick Strepon 03-06-2021 S. pyogenes Org specific cx Ql (Throat) Positive [facility] Other Quick Strep [facility] [employer] Other Covid-19 PCR ([facility])on 12-18 SARS-CoV-2 (COVID-19) RNA JANY+probe Ql (Unsp spec) Not detected Normal NOT DETECTED [facility] Comment on above: Result Comment: This test is not yet approved or cleared by the [place] FDA. When there are no FDA-approved or cleared tests available, and other criteria are met, FDA can make tests available under an emergency access mechanism called an Emergency Use Authorization (EUA). The EUA for this test is supported by the [employer] of Health and Human Service's (HHS's) declaration [...] SARS-CoV-2. Performed By: #### C VDTBH #### [facility] [address] [place], [place] [address] Dr. Rafa Johnson Covid-19 PCR (CVD[facility])on 11-16 SARS-CoV-2 (COVID-19) RNA JANY+probe Ql (Unsp spec) Not detected Normal NOT DETECTED [facility] Comment on above: Result Comment: This test is not yet approved or cleared by the [place] FDA. When there are no FDA-approved or cleared tests available, and other criteria are met, FDA can make tests available under an emergency access mechanism called an Emergency Use Authorization (EUA). The EUA for this test is supported by the [employer] of Health and Human Service's (HHS's) declaration [...] consistent with SARS-CoV-2. Performed By: #### C [facility] #### [facility] [address] [place] [address] Nagi Crabtree Vital Signs Date Time Vital Sign Value Performing Clinician Facility 09-20-2022 15:20-0400 Body height 161.29 cm Jaye Dudley Other [facility] Other 09-20-2022 15:20-0400 Body mass index (BMI) [Ratio] 20.29 kg/m2 Jaye Dudley Other [facility] Other 09-20-2022 15:20-0400 Body temperature 98.3 [degF] Jaye Dudley Other [facility] Other 09-20-2022 15:20-0400 Body weight 52.8 kg Jaye Dudley Other [facility] Other 09-20-2022 15:20-0400 Respiratory rate 18 /min Jaye Dudley Other [facility] Other 09-20-2022 15:20-0400 SaO2% (BldA) [Mass fraction] 97 % Jaye Dudley Other [facility] Other 07-09-2022 14:50-0400 Body height 162.56 cm Rosa Victoria Other [facility] Other 07-09-2022 14:50-0400 Body mass index (BMI) [Ratio] 20.12 kg/m2 Rosa Victoria Other [facility] Other 07-09-2022 14:50-0400 Body temperature 100.6 [degF] Rosa Victoria Other [facility] Other 07-09-2022 14:50-0400 Body weight 53.16 kg Rosa Victoria Other [facility] Other 07-09-2022 14:50-0400 Diastolic blood pressure 69 mm[Hg] Rosa Victoria Other [facility] Other 07-09-2022 14:50-0400 Respiratory rate 18 /min Rosa Victoria Other [facility] Other 07-09-2022 14:50-0400 SaO2% (BldA) [Mass fraction] 98 % Rosa Victoria Other [facility] Other 07-09-2022 14:50-0400 Systolic blood pressure 115 mm[Hg] Rosa Victoria Other [facility] Other 02-09-2022 08:30-0400 Body temperature 98.2 [degF] PHYSICIAN NO [facility] 02-09-2022 08:30-0400 Diastolic blood pressure 70 mm[Hg] PHYSICIAN NO [facility] 02-09-2022 08:30-0400 Heart rate 69 /min PHYSICIAN NO [facility] 02-09-2022 08:30-0400 Respiratory rate 18 /min PHYSICIAN NO [facility] 02-09-2022 08:30-0400 SaO2% (BldA) [Mass fraction] 97 % PHYSICIAN NO [facility] 02-09-2022 08:30-0400 Systolic blood pressure 109 mm[Hg] PHYSICIAN NO [facility] 02-08-2022 05:50-0400 Body height 162.56 cm PHYSICIAN NO [facility] 02-08-2022 05:50-0400 Body weight 60.78 kg PHYSICIAN NO [facility] 01-28-2022 13:20-0400 Respiratory rate 16 /min PHYSICIAN NO [facility] 01-28-2022 13:13-0400 Body temperature 97.9 [degF] PHYSICIAN NO [facility] 01-28-2022 13:03-0400 Diastolic blood pressure 61 mm[Hg] PHYSICIAN NO [facility] 01-28-2022 13:03-0400 Heart rate 64 /min PHYSICIAN NO [facility] 01-28-2022 13:03-0400 Systolic blood pressure 102 mm[Hg] PHYSICIAN NO [facility] 01-28-2022 10:51-0400 Body height 162.56 cm PHYSICIAN NO [facility] 01-28-2022 10:51-0400 Body weight 59.87 kg PHYSICIAN NO [facility] 03-06-2021 14:05-0500 Body height 162.56 cm Jaye Dudley Other [facility] Other 03-06-2021 14:05-0500 Body mass index (BMI) [Ratio] 20.94 kg/m2 Jaye Dudley Other [facility] Other 03-06-2021 14:05-0500 Body temperature 97.4 [degF] Jaye Dudley Other [facility] Other 03-06-2021 14:05-0500 Body weight 55.34 kg Jaye Dudley Other [facility] Other 03-06-2021 14:05-0500 Respiratory rate 18 /min Jaye Dudley Other [facility] Other 03-06-2021 14:05-0500 SaO2% (BldA) [Mass fraction] 97 % Jaye Dudley Other [facility] Other Encounters Encounter Date Encounter Type Care Provider Facility Start: 05-19-2023 End: 05-19-2023 ambulatory MANAN MATTHEWS Not Available Start: 05-18-2023 End: 05-18-2023 ambulatory SAMEER ORTIZ Facility:[facility] Start: 05-17-2023 End: 05-17-2023 ambulatory MANAN MATTHEWS Not Available Start: 05-17-2023 End: 05-17-2023 ambulatory MANAN MATTHEWS Not Available Start: 05-17-2023 External Result Encounter Manan Matthews MD Work Phone: [facility] Unsolicited Start: 05-17-2023 External Result Encounter Manan Matthews MD Work Phone: [facility] External [facility] Unsolicited Start: 05-12-2023 End: 05-13-2023 ambulatory MD Ron Chaudhari Facility:[facility] Angelia malloy Start: 04-04-2023 End: 04-04-2023 ambulatory MANAN MATTHEWS Not Available Start: 03-21-2023 End: 03-21-2023 ambulatory MANAN MATTHEWS Not Available Start: 02-08-2023 End: 02-09-2023 ambulatory MD Ron Chaudhari Facility:[facility] Start: 11-09-2022 End: 11-10-2022 ambulatory MD Ron Chaudhari Facility:[facility] Start: 09-20-2022 End: 09-20-2022 ambulatory Jaye Octavia Other [facility] Other Start: 09-20-2022 Office outpatient visit 15 minutes Jaye Dudley [facility] Start: 09-14-2022 End: 09-15-2022 ambulatory MD Ron Chaudhari Facility:[facility] Start: 08-16-2022 End: 08-17-2022 ambulatory MD Ron Chaudhari Facility:[facility] Start: 08-13-2022 ambulatory MD Ron Chaudhari Facility :[facility] Start: 08-02-2022 End: 08-03-2022 ambulatory MD Ron Chaudhari Facility:[facility] Start: 07-09-2022 End: 07-09-2022 ambulatory Rosa Victoria Other [facility] Other Start: 07-09-2022 Office outpatient visit 25 minutes Rosa Victoria [facility] Start: 02-12-2022 End: 02-12-2022 ambulatory Sameer Ortiz Facility:[facility] Start: 02-12-2022 End: 02-12-2022 ambulatory PHYSICIAN NO [facility] Work Phone: Start: 02-12-2022 End: 02-12-2022 Patient encounter procedure PHYSICIAN NO [facility]- Visit Start: 02-08-2022 End: 02-09-2022 Evaluation and management of inpatient Sameer Ortiz Facility:[facility] Start: 02-08-2022 End: 02-09-2022 Evaluation and management of inpatient PHYSICIAN NO [facility] [place] Start: 01-28-2022 End: 01-28-2022 ambulatory Sameer Ortiz Facility:[facility] Start: 01-28-2022 End: 01-28-2022 Patient encounter procedure PHYSICIAN NO [facility]-3 [place] Labor - O/P Start: 01-14-2022 End: 01-14-2022 ambulatory PHYSICIAN NO FAMILY Facility:[facility] Start: 01-14-2022 End: 01-14-2022 ambulatory PHYSICIAN NO [facility] Work Phone: Start: 01-14-2022 End: 01-14-2022 Departed Referred PHYSICIAN NO [facility] [place] Start: 12-23-2021 End: 12-23-2021 ambulatory PHYSICIAN NO [facility] Facility:[facility] Start: 12-23-2021 End: 12-23-2021 Departed Referred MD Manan Matthews Work Phone: [facility] Start: 09-03-2021 End: 09-03-[address] SAMEER ORTIZ Facility:[facility] Start: 08-21-2021 End: 08-21-2021 ambulatory Sameer Ortiz Facility:[facility] Start: 07-23-2021 End: 07-24-[address] SAMEER ORTIZ Facility:[facility] Start: 07-21-2021 End: 07-21-2021 ambulatory Sameer Ortiz Facility:[facility] Start: 04-06-2021 End: 04-06-[address] SAMEER ORTIZ Facility:[facility] Start: 03-06-2021 (URG) Urgent Care Visit Jaye Dudley [facility] Start: 03-06-2021 End: 03-06-2021 ambulatory Jaye Dudley Other [facility] [place] Other Start: 01-13-2021 End: 01-13-[address] [...] 10-02-2020 Plain X-ray of left wrist Sameer Diana Work Phone: SARS Antigen (LFIA) PHYSICIA N NO FAMILY Streptococcus agalac tiae culture PHYSICIAN NO FAMILY Urine culture PHYSICIAN NO F AMILY Plan of Treatment Date Care Activity Detail Author Start: 06-09-2023 End: 06-09-2023 ambulatory 06/09/2023 2:45 PM EST Initial [facility] [address] [place] [address] Manan Matthews MD [address] [place] [address] [facility] Start: 02-09-2022 [facility] Start: 02-08-2022 Hospital admission [facility] Start: 01-28-2022 [facility] Start: 01-28-2022 Hospital admission [facility] Group B Streptococcu s Culture Group B Streptococcus Culture [facility] Patient Education [facility] Work Phone: Patient referral [facility] Work Phone: Streptococcus agalac tiae [Presence] in Unspecified specimen by Organism specific culture [facility] Work Phone: Urine culture Urine Culture [facility] Immunizations Immunization Date Immunization Notes Care Provider Fa cility 02-09-2022 tetanus toxoid, redu stone diphtheria toxoid, and acellular pertussis vaccine, adsorbed PHYSICIAN NO [facility] 09-25-2017 tetanus toxoid, redu stone diphtheria toxoid, and acellular pertussis vaccine, adsorbed Sameer Ortiz Work Phone: [facility] Payers Date Payer Category Payer Medicaid [id number] 2022 Medicaid [place] [id number] 2022-Present [address] [place] [address] [id number] 2021 Self-pay [id number] 1999 Unknown [id number] 2.16.840.1.559168.3.579.2.5 93 1999 Unknown [id number] 2.16.840.1.530575.3.579.2.5 93 1999 Unknown [id number] 2.16.840.1.827187.3.579.2.5 93 1999 Unknown [id number] 2.16.840.1.895997.3.579.2.5 93 1999 Unknown [id number] 2.16.840.1.554910.3.579.2.5 93 1999 Unknown [id number] 2.16.840.1.473362.3.579.2.5 93 1999 Unknown [id number] 2.16.840.1.397354.3.579.2.1 259 1999 Unknown [id number] 2.16.840.1.734534.3.579.2.1 259 1999 Unknown [id number] 2.16.840.1.396812.3.579.2.1 259 1999 Unknown [id number] 2.16.840.1.612136.3.579.2.1 259 1999 Unknown [id number] 2.16.840.1.968540.3.579.2.1 259 1999 Unknown [id number] 2.16.840.1.401023.3.579.2.1 259 1999 Unknown [id number] 2.16.840.1.166005.3.579.2.1 259 1999 Unknown [id number] 2.16.840.1.884585.3.579.2.7 27 1999 Unknown [id number] 2.16.840.1.713164.3.579.2.7 27 1999 Unknown [id number] 2.16840.1.776789.3.579.2.7 27 1999 Unknown [id number] 2.16840.1.449515.3.579.2.7 27 1999 Unknown [id number] 2.16840.1.747562.3.579.2.7 27 1999 Unknown [id number] 2.16840.1.917644.3.579.2.7 1959 Unknown [id number] 1959 Unknown [id number] Private Health Insurance [id number] Unknown [id number] Unknown [id number] 2.840.1.844519.3.579.2.5 31 Unknown [id number] 2.16840.1.164799.3.579.2.5 31 Unknown [id number] 2.840.1.871689.3.579.2.5 31 Unknown [id number] 2.16840.1.470710.3.579.2.5 31 Unknown [id number] 2.16840.1.223742.3.579.2.5 31 Unknown [id number] 2.16840.1.638315.3.579.2.5 31 Unknown [id number] 2.16840.1.728474.3.579.2.5 31 Social History Date Type Detail Facility Start: 09-23-2017 Tobacco smoking stat [facility] Unknown if ever smoked [facility] Start: 2000 Sex Assigned At Female [facility] Start: 03-21-2023 End: 04-04-2023 Sex Assigned At [facility] [place] Other Start: 02-08-2022 End: 03-21-2023 Tobacco smoking status NHIS Never smoked tobacco (finding) [facility] Start: 03-21-2023 Tobacco use and exposure Smokeless tobacco non-user [facility] Start: 05-17-2023 Alcohol intake Ex-drinker (finding) [facility] Start: 03-21-2023 End: 04-04-2023 History of Social function [facility] How often to you hav e a drink containing alcohol? Never [facility] How many standard drinks containing alcohol do you have on a typical day? Patient does not drink [facility] Start: 03-21-2023 Alcohol Comment caffeine intak e: 1 can soda/per day [facility] Start: 04-11-2023 [facility] Start: 2000 Sex Assigned At Not on file [facility] Goals Date Patient Goal Desired Activity /State Functional Status Date Assessment Result Facility 02-09-2022 Functional status Patient at Baseline [facility] Work Phone: Mental Status Date Assessment Result Facility 02-09-2022 Cognitive function Cognitive Sta tus Patient at Baseline [facility] Work Phone: Clinical Notes 11-05-2020 to 05-18-2023 Note Date & Type Note Facility 05-18-2023 Note HNO ID: [id number] Author: JOSE WESTFALL MD Service: ? Author [...] of diseases classified elsewhere (ICD-10 - B96.89) [facility] Other 03-24-2023 Evaluation note* Encounter Date Diagnosis [...] treatment plan. Patient left in stable condition. 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 Patient: Anabela Gayle MR#: [id number] : 2000 Acct:[id number] Age/Sex: 21 / F Adm Date: 2 Loc: Room: [address] [place] [address] Type: ADM IN Attending Dr: Ivonne Richardson [...] 6 weeks Documented By: Ralph Johnson DO, JUSTO 02/09/22 0 653 Signed By: <Electronically signed by DO JUSTO Johnson> 02/09/22 0922 <Electronically signed by Jm Gamboa DO> 02/09/22 1057 [facility] Work Phone: [phone] 240-371310-24-2022 [facility] Evaluation note* Encounter Date Diagnosis Assessment Notes [...] Patient care instructions given in writting by [facility] Care At Home document. [facility] [place] Other 07-21-2021 NotePROCEDURE: XR WRIST LT MIN [...] Electronically authenticated by: OPAL CHRISTOPHER Date: 2020-11-05 13:47[facility] noteNo assessment information available[facility]Evaluation [facility]* Diagnosis Onset Date Resolution Status Status post vaginal delivery [facility] Work Phone: Hisdyvb general Narrative - Reported* Type Description Date Medical History Depression, unspecified depressi on type Medical History Anxiety Medical History bipolar Surgical History appendectomy Hospitalization History see above [facility] [place] Other Hisunth general Narrative - Reported* Type Description Date Medical History Depression, unspecified depressi on type Medical History Anxiety Medical History bipolar Surgical History appendectomy Hospitalization History see above Hospitalization History child births x 2 [facility] Other Advance Directives No Advanced Directives Records Found Advance Directive Response Recorded Date/ Time Advance Directives No August 25 8 10:48am Summary Purpose Family History No Family History Records Found Relationship Condition Age at Onset Recorded Date/T [...] and content) DATE CREATED AUTHOR 09/07/2021 [facility] DATE CREATED AUTHOR AUTHOR'S ORGANIZ ATION 02/27/2022 [facility] DATE CREATED AUTHOR AUTHOR'S ORGANIZ ATION 05/19/2023 [facility] DATE CREATED AUTHOR AUTHOR'S ORGANIZ ATION 05/20/2023 [facility] DATE CREATED AUTHOR AUTHOR'S ORGANIZ ATION 06/05/2023 [facility] REASON FOR VISIT (unrecogniz ed section and [...] MD Primary Care Provider Active Ivonne Richardson , DO Admit Provider, Attending Provide r Active Team Status: Inactive Member Role Status Dates Sameer Ortiz MD Primary Care Provider Active Manan Matthews MD Attending Provider Active Team Status: Active Member Role Status Dates Sameer Ortiz MD Primary Care Provider Active Team Status: Inactive Member Role Status Dates Sameer Ortiz MD Primary Care Provider Active Nikki Horvath MD Attending Provider Active [employer] Relationship Specialty Start Date End Date Ron Chaudhari MD [address] [place] [address] PCP - General Family Medicine 03/21/23 FOR [...] BE BASED ON THE PRIMARY CLINICAL RECORDS. [employer] provides no warranty or guarantee of the accuracy or completeness of information in this document.
--- NOTE | 2023-06-12 18:05 | ED_ITS ---
HPI - General Adult General Chief complaint: Nausea/Vomiting/Diarrhea Stated complaint: URTI Time Seen by Provider: 06/12/23 17:40 Source: patient Mode of arrival: walk-in Limitations: no limitations History of Present Illness HPI narrative: The patient already been diagnosed with influenza B is coming to us with nausea and vomiting for the last 24 hours, the patient did not use her Zofran today denies any other symptoms she also was diagnosed with influenza B and she was supposed to be started on Tamiflu but she did not start it yet. The patient is coming to the ER for concern of dehydration. No dizziness no other complaints and the patient have no diarrhea only nausea and vomiting and no abdominal pain, the patient is 11 weeks and she have no vaginal bleeding no other complaints or concerns Related Data Home Medications Medication Instructions Recorded Confirmed vits no.[id number] fum 1 tab PO DAILY 03/28/23 06/12/23 27 mg iron-folic acid 800 mcg tablet ( Vitamin) Previous Rx's Medication Instructions Recorded ondansetron 4 mg disintegrating 4 mg PO Q6H PRN nausea and 05/30/23 tablet vomiting #20 tabs diphenhydramine HCl 25 mg capsule 25 mg PO TID PRN nausea and 06/12/23 (Benadryl) vomiting #6 caps famotidine 20 mg tablet (Pepcid) 20 mg PO BID #10 tabs 06/12/23 Allergies Allergy/AdvReac Type Severity Reaction Status Date / Time No Known Drug Allergies Allergy Verified 12/24/22 01:23 Review of Systems ROS Status of ROS 10 or more systems reviewed and unremark able except as noted in history and below PFSH PFSH Social History Smoking status: Never smoker Exam Narrative Exam Narrative: Nurses notes and vital signs reviewed and patient is not hypoxic. General: Well-appearing and in no apparent distress. Skin: Warm, dry, no pallor noted. No rash. Head: Normocephalic, atraumatic. Neck: Supple, non-tender. Eye: Pupils are equal, round and EOMI. No scleral icterus. Ears, Nose, Mouth, and Throat: TM are clear, no nasal mucosal hypertrophy. Oral mucosa is moist, no posterior oropharynx erythema, uvula is mid-line Cardiovascular: Regular Rate and Rhythm without murmur, gallop or rub. Respiratory: No accessory muscle use or respiratory distress. Lungs are clear to auscultation, no wheezing, rales or rhonchi Chest Wall: no tenderness Back: No midline thoracic or lumbar vertebral tenderness. No CVA tenderness Musculoskeletal: normal ROM, no calf or popliteal tenderness, no lower extremity edema/swelling GI: Abdomen is soft, non-distended. Normal bowel sounds. No masses appreciated. No tenderness to palpation. No rebound, guarding, or rigidity noted. Neurological: A&O x4. No cranial nerve dysfunction observed. No truncal ataxia. Moves all extremities. Sensation intact. Psychiatric: Cooperative and interactive. Normal mood and affect. Constitutional Vital Signs, click to edit/add: Last Vital Signs Temp 98.5 F 06/12/23 17:39 Pulse 104 H 06/12/23 17:39 Resp 18 06/12/23 17:39 BP 117/76 06/12/23 17:39 Pulse Ox 98 06/12/23 17:39 O2 Del Method Room Air 06/12/23 17:39 Course Vital Signs Vital signs: Vital Signs Temperature 98.5 F 06/12/23 17:39 Pulse Rate 104 H 06/12/23 17:39 Respiratory Rate 18 06/12/23 17:39 Blood Pressure 117/76 06/12/23 17:39 Pulse Oximetry 98 06/12/23 17:39 Oxygen Delivery Method Room Air 06/12/23 17:39 Temperature 98.5 F 06/12/23 17:39 Pulse Rate 104 H 06/12/23 17:39 Respiratory Rate 18 06/12/23 17:39 Blood Pressure 117/76 06/12/23 17:39 Pulse Oximetry 98 06/12/23 17:39 Oxygen Delivery Method Room Air 06/12/23 17:39 Medical Decision Making [facility] Narrative Medical decision making narrative: CBC and chemistry showed no acute pathology except for mild hypokalemia that the patient will correct with increasing her potassium intake in diet the patient did not have any vomiting in the ER and she was feeling much better after initial treatment The patient instructed about the importance of hydration and continuing her treatment and supportive care because of the influenza The patient is to follow up with primary care physician in next 2-3 days or to return to the emergency department should any of the signs or symptoms worsen or new symptoms develop. The patient agrees with the following Diagnosis and Treatment plan and the patient will be discharged home. Lab Data Labs: Lab Results 06/12/23 Range/Units 18:06 WBC 5.8 (4.0-11.0) 10^3/uL RBC 4.36 (4.20-5.40) 10^6/uL Hgb 13.2 (12.0-16.0) g/dL Hct 39.2 (36.0-48.0) % MCV 89.9 (81.0-99.0) fL MCH 30.3 (26.7-34.0) pg MCHC 33.7 (29.9-35.2) g/dL RDW 13.0 (11.0-15.0) % Plt Count 200 (150-450) 10^3/uL MPV 9.0 L (9.5-13.5) fL Seg Neuts % (Manual) 74.0 Band Neutrophils % 5.0 (0-5) % Lymphocytes % (Manual) 10.0 L (20.5-60.0) % Monocytes % (Manual) 11.0 (1.7-12.0) % Eosinophils % (Manual) 0.0 L (0.9-7.0) % Basophils % (Manual) 0.0 L (0.2-2.0) % Neutrophils # (Manual) 4.29 (1.4-6.5) 10^3/uL Band Neutrophils # 0.3 (0.0-0.3) 10^3/uL Lymphocytes # (Manual) 0.58 L (1.20-3.80) 10^3/uL Monocytes # (Manual) 0.63 (0.30-0.80) 10^3/uL Eosinophils # (Manual) 0.00 (0.00-0.70) 10^3/uL Basophils # (Manual) 0.00 (0.00-0.10) 10^3/uL Sodium 139 (136-145) mmol/L Potassium 3.3 L (3.5-5.1) mmol/L Chloride 101 (98-107) mmol/L Carbon Dioxide 23.4 (21.0-32.0) mmol/L Anion Gap 17.9 BUN 9.0 (7.0-18.0) mg/dL Creatinine 0.62 (0.55-1.02) mg/dL Est GFR ( Amer) >60 (>=60) Est GFR (Non-Af Amer) >60 (>=60) BUN/Creatinine Ratio 14.5 Glucose 97 (74-106) mg/dL Calcium 8.9 (8.5-10.1) mg/dL Total Bilirubin 0.2 (0.2-1.0) mg/dL AST 13 L (15-37) U/L ALT 13 L (14-59) U/L Alkaline Phosphatase 49 (46-116) U/L Total Protein 7.5 (6.4-8.2) g/dL Albumin 3.5 (3.4-5.0) g/dL Globulin 4.0 g/dL Albumin/Globulin Ratio 0.9 Discharge Plan Discharge Chief Complaint: Nausea/Vomiting/Diarrhea Clinical Impression: Flu Patient Disposition: Home, Self-Care Time of Disposition Decision: 18:52 Condition: Good Prescriptions / Home Meds: New diphenhydramine HCl [Benadryl] 25 mg capsule 25 mg PO TID PRN (Reason: nausea and vomiting) Qty: 6 0RF famotidine [Pepcid] 20 mg tablet 20 mg PO BID Qty: 10 0RF No Action Vitamin 27 mg iron- 800 mcg tablet 1 tab PO DAILY ondansetron 4 mg tablet,disintegrating 4 mg PO Q6H PRN (Reason: nausea and vomiting) Qty: 20 0RF Instructions: Influenza (DC) Stand Alone Forms: Portal Instructions Referrals: JOSÉ MANUEL CHEUNG [Primary Care Provider] - 1 week
[2023-06-12] MEDS: 0.9 % SODIUM CHLORIDE 1,000 ML 1000 ML IV (18:12)
[2023-06-12] MEDS: FAMOTIDINE/PF 20 MG/2 ML VIAL IV (18:12)
[2023-06-12] MEDS: ONDANSETRON PF 4 MG/2 ML VIAL IV (18:13)
[2023-06-12 18:15] LABS: Hematocrit 39.2 % (36.0-48.0); Hemoglobin 13.2 g/dL (12.0-16.0); Mean Corpuscular HGB Conc 33.7 g/dL (29.9-35.2); Mean Corpuscular Hemoglobin 30.3 pg (26.7-34.0); Mean Corpuscular Volume 89.9 fL (81.0-99.0); Platelet Count 200 10^3/uL (150-450); Red Blood Count 4.36 10^6/uL (4.20-5.40); White Blood Count 5.8 10^3/uL (4.0-11.0)
[2023-06-12 18:29] LABS: Alanine Aminotransferase 13 U/L (14-59); Albumin Globulin Ratio 0.9; Albumin Level 3.5 g/dL (3.4-5.0); Alkaline Phosphatase 49 U/L (46-116); Anion Gap 17.9; Aspartate Amino Transferase 13 U/L (15-37); BUN Creatinine Ratio 14.5; Bilirubin Total 0.2 mg/dL (0.2-1.0); Calcium 8.9 mg/dL (8.5-10.1); Carbon Dioxide 23.4 mmol/L (21.0-32.0); Chloride 101 mmol/L (98-107); Estimated GFR (African America >60 (>=60); Estimated GFR (Non-African Ame >60 (>=60); Glucose 97 mg/dL (74-106); Potassium 3.3 mmol/L (3.5-5.1); Sodium 139 mmol/L (136-145); Total Protein 7.5 g/dL (6.4-8.2)
[2023-06-12 18:36] LABS: Band Neutrophils Absolute 0.3 10^3/uL (0.0-0.3); Lymphocytes Absolute Manual 0.58 10^3/uL (1.20-3.80); Monocytes Absolute Manual 0.63 10^3/uL (0.30-0.80); Segmented Neut Absolute Manual 4.29 10^3/uL (1.4-6.5)
[2023-06-12] MEDS: ACETAMINOPHEN 325 MG TABLET 650 MG PO (19:04)
[2023-06-12 19:06] VITALS: BP 119/65; PULSE 88; RESP 16; O2SAT 100
== END 2023-06-12 19:09 | disposition home or self-care (01) ==
PROVIDERS: Emergency Provider Emergency Medicine; PCP Family Medicine
DX: O98.811 Other maternal infectious and parasitic diseases complicating pregnancy, first trimester (principal); Z3A.11 11 weeks gestation of pregnancy; J10.1 Influenza due to other identified influenza virus with other respiratory manifestations
CPT/HCPCS: 36415; 80053; 85007; 85027; 87804; 87811; 96361; 96374; 96375; 99284; J2405

== ENCOUNTER 2023-09-09 15:27 | Emergency (ER) | payer MEDICAID, SELFPAY ==
[2023-09-09 15:41] VITALS: BP 123/74; PULSE 100; TEMP 37.2; O2SAT 100
[2023-09-09 16:30] LABS: Internal Control Within Normal Limits; SARS-CoV-2 Ag NEGATIVE (NEGATIVE)
[2023-09-09 16:31] LABS: Influenza Virus A Antigen Negative; Influenza Virus B Antigen Negative; Internal Control Within Normal Limits; Strep A Antigen Screen Negative
[2023-09-09 17:29] VITALS: O2SAT 100
[2023-09-09 17:30] VITALS: BP 110/77; PULSE 93
--- NOTE | 2023-09-09 17:35 | ED_ITS ---
HPI - URI/Sore Throat General Chief Complaint: Upper Respiratory Infection Stated Complaint: Upper respiratory Infection Time Seen by Provider: 09/09/23 17:22 Source: patient Limitations: no limitations History of Present Illness HPI Narrative: Patient is a 23-year-old female who presents to the ER at 23 weeks of for cough and congestion. She states she was diagnosed with COVID 2-1/2 weeks ago and symptoms resolved after about a week. She states 1 week ago she developed cough, congestion and headache. She denies objective fevers. She has had vomiting throughout her . She has not had any significant sputum production, hemoptysis or wheezing. She states she has been using Tylenol for the headache but is afraid to continue doing so because of the . She has not been seen by her PCP, OB or any other providers for the symptoms for the last week. On questioning the patient regarding her , she states she has been having pelvic pain for the last 2 weeks, her OB is aware of this. She was i nstructed to use a pelvic binder for suspected round ligament pain but was instructed to come to the hospital if her symptoms worsen or she develop bleeding. On my evaluation in the ER, I did recommend to the patient and her family member at bedside that she go to [facility] after our evaluation in the ER. Related Data Home Medications ?Medication ?Instructions ?Recorded ?Confirmed vits no.130-ferrous fum 1 tab PO DAILY 03/28/23 06/12/23 27 mg iron-folic acid 800 mcg tablet ( Vitamin) Previous Rx's ?Medication ?Instructions ?Recorded ondansetron 4 mg disintegrating 4 mg PO Q6H PRN nausea and 05/30/23 tablet vomiting #20 tabs diphenhydramine HCl 25 mg capsule 25 mg PO TID PRN nausea and 06/12/23 (Benadryl) vomiting #6 caps famotidine 20 mg tablet (Pepcid) 20 mg PO BID #10 tabs 06/12/23 albuterol sulfate 90 mcg/actuation 2 inh inhalation Q4H PRN shortness 09/09/23 aerosol inhaler of breath or wheezing #8.5 grams azithromycin 250 mg tablet See Rx Instructions PO .COMPLEX #6 09/09/23 (Zithromax Z-Nilton) tabs ondansetron 4 mg disintegrating 4 mg PO Q6H PRN nausea and 09/09/23 tablet vomiting #12 tabs Allergies Allergy/AdvReac Type Severity Reaction Status Date / Time No Known Drug Allergies Allergy Verified 12/24/22 01:23 Review of Systems ROS Constitutional Denies: fever or chills Ears, nose, mouth, and throat Reports: throat pain and nasal congestion Cardiovascular Denies: chest pain Respiratory Reports: cough; Denies: shortness of breath Gastrointestinal Reports: nausea and vomiting; Denies: abdominal pain Genitourinary Reports: pelvic pain; Denies: vaginal bleeding or vaginal discharge Integumentary/Breast Denies: rash Neurological Reports: headache [facility] Social History Smoking status: Never smoker Exam Narrative Exam Narrative: Gen.: Awake, alert, in no distress Head: Normocephalic, atraumatic ENT: Moist mucous membranes, Bilateral TMs clear. No pharyngeal erythema. Clear speech, no trismus or drooling Respiratory: No respiratory distress, lungs clear bilaterally, Dry cough noted with no wheezing or rhonchi. Cardio: Regular rate and rhythm Gastrointestinal: Abdomen is soft, nondistended and nontender to palpation Extremities: Moves extremities equally Psych: Normal mood and affect Neuro: No focal neuro deficit Skin: Warm, dry, intact Constitutional Vital Signs, click to edit/add: Last Vital Signs Temp 99.0 F 09/09/23 15:41 Pulse 100 H 09/09/23 15:41 Resp 18 09/09/23 15:41 BP 110/77 09/09/23 17:30 Pulse Ox 100 09/09/23 17:29 O2 Del Method Room Air 09/09/23 17:29 Course Vital Signs Vital signs: Vital Signs Temperature 99.0 F 09/09/23 15:41 Pulse Rate 100 H 09/09/23 15:41 Respiratory Rate 18 09/09/23 15:41 Blood Pressure 123/74 09/09/23 15:41 Pulse Oximetry 100 09/09/23 15:41 Temperature 99.0 F 09/09/23 15:41 Pulse Rate 100 H 09/09/23 15:41 Respiratory Rate 18 09/09/23 15:41 Blood Pressure 110/77 09/09/23 17:30 Pulse Oximetry 100 09/09/23 17:29 Oxygen Delivery Method Room Air 09/09/23 17:29 MDM - URI/Sore Throat MDM Narrative Medical decision making narrative: COVID, flu, strep testing was performed in the lobby as we had delayed wait times. These are all negative test and the patient's vital signs are within normal limits. Discussed the chest x-ray with the patient but at this time the patient will be treated based on the duration of her symptoms and history of with a Z-Nilton, albuterol inhaler and Zofran. Patient is comfortable with deferring a chest x-ray at this time. She was encouraged to continue Tylenol for headache. I did encourage the patient to go to [facility] for evaluation of her pelvic pain, she states her OB is aware of this and she has an appointment on Tuesday so she prefers just to follow-up as an outpatient. Medical Records Attestation: I reviewed the patient's medical records. Lab Data Attestation: I reviewed the patient's lab results. Labs: Lab Results 09/09/23 Range/Units 15:51 Influenza Type A Ag Negative Influenza Type B Ag Negative SARS-CoV-2 Ag (CV2AG) Negative (NEGATIVE) Streptococcus Screen Negative Discharge Plan Discharge Stand Alone Forms: Portal Instructions Chief Complaint: Upper Respiratory Infection Clinical Impression: Upper respiratory infection Patient Disposition: Home, Self-Care Time of Disposition Decision: 17:34 Condition: Good Prescriptions / Home Meds: New azithromycin [Zithromax Z-Nilton] 250 mg tablet See Rx Instructions .ROUTE .COMPLEX Qty: 6 0RF Rx Instructions: For 250 mg dose pack: take 500 mg today (day 1), then 250 mg for 4 days (days 2-5) albuterol sulfate 90 mcg/actuation HFA aerosol inhaler 2 inh inhalation Q4H PRN (Reason: shortness of breath or wheezing) Qty: 8.5 0RF ondansetron 4 mg tablet,disintegrating 4 mg PO Q6H PRN (Reason: nausea and vomiting) Qty: 12 0RF No Action Vitamin 27 mg iron- 800 mcg tablet 1 tab PO DAILY diphenhydramine HCl [Benadryl] 25 mg capsule 25 mg PO TID PRN (Reason: nausea and vomiting) Qty: 6 0RF famotidine [Pepcid] 20 mg tablet 20 mg PO BID Qty: 10 0RF ondansetron 4 mg tablet,disintegrating 4 mg PO Q6H PRN (Reason: nausea and vomiting) Qty: 20 0RF Print Language: Arabic Instructions: Upper Respiratory Infection (ED) Referrals: JOSÉ MANUEL CHEUNG [Primary Care Provider] - 1 week
== END 2023-09-09 17:41 | disposition home or self-care (01) ==
PROVIDERS: Emergency Provider Emergency Medicine; PCP Family Medicine
DX: O99.512 Diseases of the respiratory system complicating pregnancy, second trimester (principal); J06.9 Acute upper respiratory infection, unspecified; Z3A.23 23 weeks gestation of pregnancy; Z20.822 Contact with and (suspected) exposure to COVID-19
CPT/HCPCS: 87070; 87804; 87811; 87880; 99285

== ENCOUNTER 2024-11-09 16:35 | Outpatient (OUT) | payer MEDICAID, SELFPAY ==
--- NOTE | 2024-11-09 16:46 | US_ITS ---
The [address] [address] Patient Name: BASILIO GAYLE MRN: [id number] date: 2000 Sex: F Assigned Patient Location: Current Patient Location: US Accession/Order Number: [id number] Exam Date: 11/09/2024 20:53 Report Date: 11/09/2024 20:58 At the request of: SEBASTIAN BROOKS Procedure: US pelvis Transabdominal pelvic ultrasound HISTORY: Pelvic pain for 3 months FINDINGS: The uterus measures 7.5 x 3.2 x 5.3 cm. No uterine lesion identified. The endometrium has a total combined thickness of 4.3mm. IUD present within the uterine cavity. The RIGHT ovary measures 2.2 x 1.6 x 1.8 cm. LEFT ovary measures 2.3 x 2.5 x 1.7 cm. Right ovary resistive index 0.6 and the left 0.5. No free fluid identified. Bilateral ovarian follicles present There is no adnexal mass identified. US/US pelvis IMPRESSION: No adnexal mass. No free fluid. Unremarkable ovaries with bilateral follicles. IUD in uterine cavity. Unremarkable uterus. Impression dictated by: Sage Smith M.D. 11/09/2024 8:58 PM Dictation Location: [place] [id number] Electronically authenticated by: [id number] Y Date: 11/09/2024 20:58
== END 2024-11-09 16:36 | disposition home or self-care (01) ==
PROVIDERS: PCP Family Medicine; Visit Provider Nurse Practitioner
DX: R10.2 Pelvic and perineal pain (principal); Z78.9 Other specified health status; Z68.1 Body mass index [BMI] 19.9 or less, adult
CPT/HCPCS: 76856